=== PATIENT | female | born 1955 | race Caucasian/White ===

== ENCOUNTER 2017-10-11 19:24 | Emergency (ER) | payer OTHER ==
[2017-10-11 19:24] VITALS: BMI 31.4
[2017-10-12 01:47] LABS: BASO # 0.1 K/uL (0.0-0.2); BASO % 0.9 % (0.0-2.0); EOS # 0.3 K/uL (0.0-0.7); EOS % 3.9 % (0.0-4.0); HEMOGLOBIN 13.8 g/dL (11.0-16.0); LYMPH # 2.9 K/uL (1.0-4.3); LYMPH % 44.1 % (20.0-40.0); MEAN CELL VOLUME 90.1 fL (81.0-99.0); MEAN CORPUSCULAR HGB CONC 33.3 g/dL (33.0-37.0); MEAN PLATELET VOLUME 8.9 fL (7.2-11.7); MONO # 0.5 K/uL (0.0-0.8); NEUT # 2.9 K/uL (1.8-7.0); NEUT % 44.1 % (50.0-75.0); NRBC % 0.1 % (0.0-2.0); RBC 4.59 Mil/uL (3.80-5.20); RED CELL DISTRIBUTION WIDTH 13.9 % (11.5-14.5); WHITE BLOOD COUNT 6.6 K/uL (4.8-10.8)
[2017-10-12 01:54] LABS: INR 0.9; PROTHROMBIN TIME 9.7 SECONDS (9.7-12.2)
[2017-10-12 02:00] LABS: SQUAMOUS EPITHIAL 2 /hpf (0-5); URINE BACTERIA RARE (<OCC); URINE BILIRUBIN NEGATIVE (NEGATIVE); URINE BLOOD NEGATIVE (NEGATIVE); URINE CLARITY Clear (Clear); URINE COLOR Yellow (YELLOW); URINE GLUCOSE (UA) NORMAL (Normal); URINE LEUKOCYTE ESTERASE 3+ Leu/uL (Negative); URINE NITRATE NEGATIVE (NEGATIVE); URINE PROTEIN NEGATIVE (NEGATIVE); URINE UROBILINOGEN NORMAL mg/dL (0.2-1.0)
[2017-10-12 02:14] LABS: ALB/GLOB RATIO 1.3 (1.0-2.1); ALBUMIN 4.1 g/dL (3.5-5.0); ALT/SGPT 17 U/L (9-52); AST/SGOT 20 U/L (14-36); BLOOD UREA NITROGEN 16 mg/dL (7-17); CALCIUM 9.6 mg/dl (8.6-10.4); GFR AFRICAN-AMERICAN > 60; GFR NON-AFRICAN AMERICAN > 60; MAGNESIUM 1.7 mg/dL (1.6-2.3)
--- NOTE | 2017-10-12 02:17 | C.PDOC ---
History Of Present Illness 62 year old female presents to ED with complaints of an open wound on the ball of her left foot and has a past medical history of diabetes mellitus and HTN. Patient states that wound is painful and has been worsening over the last few days. Notes that she sees a investigation specialist at the wound clinic but has missed multiple recent appointments. Notes an increase in purulent drainage in pain. (- ) fever. PCP: Manuel Mike Time Seen by Provider: 10/11/17 23:29 Chief Complaint (Nursing): Lower Extremity Problem/Injury History Per: Patient History/Exam Limitations: no limitations Onset/Duration Of Symptoms: Worse Since (last few days) Current Symptoms Are (Timing): Worse Past Medical History Reviewed: Historical Data, Nursing Documentation, Vital Signs Vital Signs: Last Vital Signs Temp 99.3 F 10/11/17 20:23 Pulse 66 10/11/17 20:23 Resp 20 10/11/17 20:23 BP 115/79 10/11/17 20:23 Pulse Ox 98 10/12/17 03:22 - Medical History PMH: Depression, Diabetes, HTN, Hyperlipidemia Denies: Chronic Kidney Disease Surgical History: Cholecystectomy, Hernia Repair, - [facility] Procedures DETACHMENT AT RIGHT 1ST TOE, HIGH, OPEN APPROACH (07/13/16) INSERTION OF INFUSION DEV INTO SUP VENA CAVA, PERC APPROACH (07/13/16) Family History: States: Unknown Family Hx - Social History Hx Tobacco Use: Yes Hx Alcohol Use: No Hx Substance Use: No - Immunization History Hx Tetanus Toxoid Vaccination: No Hx Influenza Vaccination: No Hx Pneumococcal Vaccination: No Review Of Systems Except As Marked, All Systems Reviewed And Found Negative. Constitutional: Negative for: Fever Musculoskeletal: Positive for: Foot Pain (pain to ball of left foot. purulent drainage ) Physical Exam - Physical Exam Appears: Well, No Acute Distress ED Course And Treatment - Laboratory Results Result Diagrams: 10/12/17 01:44 10/12/17 01:44 O2 Sat by Pulse Oximetry: 98 (RA) Pulse Ox Interpretation: Normal Medical Decision Making Medical Decision Makin Initial orders: * VBG * EKG * Labs * XR FOOT LEFT 0003 Foot XR: unremarkable, no fracture no osteomyelitis White count: 6.6 Patient is resting comfortably. 0230 Chemistry unremarkable. Patient will be discharged with antibiotics. Scribe Attestation: Documented by Sheela Stewart acting as a scribe for Long Bridges MD. Scribe Attestation: All medical record entries made by the Scribe were at my direction and personally dictated by me. I have reviewed the chart and agree that the record accurately reflects my personal performance of the history, physical exam, medical decision making, and the department course for this patient. I have also personally directed, reviewed, and agree with the discharge instructions and disposition. Disposition Doctor Will See Patient In The: Office Counseled Patient/Family Regarding: Diagnosis, Need For Followup - Disposition Disposition: HOME/ ROUTINE Disposition Time: 05:10 Condition: STABLE Forms: [employer] (Angolan) - Clinical Impression Clinical Impression: Diabetic foot ulcer, Diabetes 1.5, managed as type 2
[2017-10-12 03:00] LABS: VENOUS BLOOD GAS BASE EXCESS -1.4 mmol/L (0.0-2.0); VENOUS BLOOD GAS PCO2 58 mmHg (40-60); VENOUS BLOOD GAS PO2 23 mm/Hg (30-55); VENOUS BLOOD PH 7.27 (7.32-7.43)
[2017-10-12 06:20] VITALS: BP 116/74; PULSE 74; RESP 20; TEMP 97.6; O2SAT 95
--- NOTE | 2017-10-12 08:48 | RAD ---
PROCEDURE: Left Foot Radiographs. HISTORY: INFECTION COMPARISON: 05/05/2017 FINDINGS: BONES: Generalized osteopenia -similar-appearing No interval fracture or lytic lesion. Mottled soft tissue densities border the 1st metatarsal-phalangeal joint -an interval change here - compatible with an ulcer. No region periosteal reaction or cortical destruction Inferior calcaneal spurring. Posterior calcaneal spurring - blending Achilles tendon enthesophyte . JOINTS: Normal. SOFT TISSUES: Normal. OTHER FINDINGS: None. IMPRESSION: Soft tissue changes consistent with infection. No osteomyelitis suggested
== END 2017-10-12 06:17 | disposition home or self-care (01) ==
LOC: C.ER 19:24
DX: E11.621 Type 2 diabetes mellitus with foot ulcer (principal); L97.529 Non-pressure chronic ulcer of other part of left foot with unspecified severity; I10 Essential (primary) hypertension; E78.5 Hyperlipidemia, unspecified; F17.210 Nicotine dependence, cigarettes, uncomplicated
CPT/HCPCS: 73620; 80053; 81001; 82803; 83735; 84100; 85025; 85610; 85651; 85730; 86140; 87040; 87086; 96374; 96375; 99285; J0696

== ENCOUNTER 2018-06-05 17:06 | Inpatient (IN) | payer OTHER ==
[2018-06-05 17:06] VITALS: BMI 31.4
--- NOTE | 2018-06-05 18:18 | C.PDOC ---
History Of Present Illness 62 year old female presents to the emergency department with complaints of a recurring right foot ulcer for the last 2-3 weeks. Patient reports a history of intermittent ulcer to the bottom of the right foot "for a long time", stating that it resolves and then recurs. Patient states that the size and pain of her ulcer is increasing, with positive discharge. 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 RECUR R FOOT ULCER X 2-3 WEEKS. PS HO INTERMIT ULCER BOTTOM R FOOT "FOR A LONG TIME", WILL RESOLVE AND THEN RECUR. INCR SIZE AND PAIN. +DC. POD DR BENJAMIN EXAM NONTOXIC FOOT R FOOT +1 TOE AMPUTATION, +SWELL MILD NONPITTING ATRAUM SKIN +DFU PLANTAR METATARSAL HEAD W SEROSANG DC. REMAINDER NEG Time Seen by Provider: 06/05/18 18:04 Chief Complaint (Nursing): Abnormal Skin Integrity History Per: Patient History/Exam Limitations: no limitations Onset/Duration Of Symptoms: Other (2-3 weeks) Current Symptoms Are (Timing): Still Present Past Medical History Reviewed: Historical Data, Nursing Documentation, Vital Signs Vital Signs: Last Vital Signs Temp 101.3 F H 06/05/18 20:25 Pulse 108 H 06/05/18 20:25 Resp 18 06/05/18 20:25 BP 110/63 06/05/18 20:25 Pulse Ox 97 06/05/18 20:28 - Medical History PMH: Depression, Diabetes, HTN, Hyperlipidemia Denies: Chronic Kidney Disease Surgical History: Cholecystectomy, Hernia Repair, - [facility] Procedures DETACHMENT AT RIGHT 1ST TOE, HIGH, OPEN APPROACH (07/13/16) INSERTION OF INFUSION DEV INTO SUP VENA CAVA, PERC APPROACH (07/13/16) Family History: States: No Known Family Hx - Social History Hx Tobacco Use: Yes Hx Alcohol Use: No Hx Substance Use: No - Immunization History Hx Tetanus Toxoid Vaccination: Yes Hx Influenza Vaccination: No Hx Pneumococcal Vaccination: Yes Review Of Systems Except As Marked, All Systems Reviewed And Found Negative. Skin: Positive for: Other (right foot ulcer) Neurological: Negative for: Weakness, Numbness Physical Exam - Physical Exam Appears: Non-toxic, No Acute Distress Skin: Warm, Dry, Other (diabetic foot ulcer at the plantar metatarsal head with serosang discharge. ) Head: Atraumatic, Normacephalic Eye(s): bilateral: Normal Inspection Neck: Normal, Supple Chest: Symmetrical, No Tenderness Cardiovascular: Rhythm Regular, No Murmur Respiratory: Normal Breath Sounds, No Rales, No Rhonchi, No Wheezing Extremity: Swelling (to the right foot, mild, non-pitting), Other (right great toe amputation) ED Course And Treatment - Laboratory Results Result Diagrams: 06/05/18 19:24 06/05/18 19:24 ECG Rhythm: Sinus Rhythm ECG Interpretation: Normal Rate From EC O2 Sat by Pulse Oximetry: 97 (RA) Pulse Ox Interpretation: Normal - Radiology CXR: Interpreted by Me CXR Interpretation: Yes: No Acute Disease - Other Rad R FOOT X-Ray: Interpreted by Me (NO FB, ACUTE FX) Progress Note: Plan: VBG. CMP. CBC. CXR One View. Ancef 1000mg. Vancomycin Inj. IV Fluids. Blood Culture. Wound Culture. XR Right Foot 3 Views Progress - Re-Evaluation Re-evaluation Note: 06/05/18 18:15 d/w PODIATRY RES WILL EVAL IN ER 06/05/18 18:20 d/w dr arias AWARE OF ER FINDINGS STATES TO ADMIT TO [employer]ATION [employer]INEER 06/05/18 19:51 D/W DR FELICIANO MED COMPRESSOR STATION ENGINEER WILL ADMIT PT EXAM UNCH PRIOR. NONTOXIC VSS CODE SEPSIS ACTIVATED - Data Reviewed Data Reviewed: Lab, Diagnostic imaging, Old records Disposition Counseled Patient/Family Regarding: Studies Performed, Diagnosis - Disposition Disposition: HOSPITALIZED Disposition Time: 19:53 Condition: SERIOUS - POA Present On Arrival: None - Clinical Impression Clinical Impression: Diabetic foot ulcer - Scribe Statement The provider has reviewed the documentation as recorded by the Scribe (Haider Coleman) Provider Attestation: All medical record entries made by the Scribe were at my direction and personally dictated by me. I have reviewed the chart and agree that the record accurately reflects my personal performance of the history, physical exam, medical decision making, and the department course for this patient. I have also personally directed, reviewed, and agree with the discharge instructions and disposition.
--- NOTE | 2018-06-05 19:23 | CP.PCM.CON ---
History of Present Illness - History of Present Illness History of Present Illness: Podiatry consult note for attending 62 y/o female with PMHx of Depression, Diabetes, HTN, and Hyperlipidemia presents to the Emergency department due to an ulceration to the plantar aspect of her right foot. Patient states she has a long-standing intermittent, history of ulcerations of her feet, which are treated by Dr. Teo Benjamin DPM. Patient states she noted this ulceration 2-3 weeks ago. Patient states it started draining 3 days ago. Patient came to the ED today due to complaints of pain, which travels to the inside of her leg. Patient last saw Dr. Benjamin on May 19 2018, and has not seen him since. Patient had an appointment on June 03, 2018, however she was unable to make the appointment due to transportation issues. Patient states she dresses the ulcer at home everyday with betadine and dry sterile dressing. Patient also states she has a pre- ulcerative lesion to her left foot, which she dresses daily. Patient does not recall her last fasting blood sugar. Patient states she last ate lunch and has only had water since. patient denies any fever, nausea, vomiting, SOB or chest pain. PMHx: Depression, Diabetes, HTN, Hyperlipidemia PSHx: Amputation of the Right Hallux form June 2016, Cholecystectomy, Hernia Repair, ALL: NKDFA Social Hx: admits to tobacco use Review of Systems - Review of Systems All systems: reviewed and no additional remarkable complaints except Review of Systems: as per HPI Past Patient History - Infectious Disease Hx of Infectious Diseases: None - Past Medical History & Family History Past Medical History?: Yes - Past Social History Smoking Status: Light Smoker < 10 Cigarettes Daily - CARDIAC Hx Hypertension: Yes - PULMONARY Hx Respiratory Disorders: Yes (URI) - RENAL Hx Chronic Kidney Disease: No - ENDOCRINE/METABOLIC Hx Diabetes Mellitus Type 1: Yes - INTEGUMENTARY Hx Cellulitis: Yes (right ft) - MUSCULOSKELETAL/RHEUMATOLOGICAL Hx Falls: No - PSYCHIATRIC Hx Depression: Yes Hx Substance Use: No - SURGICAL HISTORY Hx Cholecystectomy: Yes - ANESTHESIA Hx Anesthesia Reactions: No Meds Allergies/Adverse Reactions: Allergies Allergy/AdvReac Type Severity Reaction Status Date / Time No Known Allergies Allergy Verified 06/05/18 17:29 - Medications Medications: Current Medications Vancomycin HCl 1,000 mg/ (Sodium Chloride) 250 mls @ 166.6 mls/hr IVPB STAT STA PRN Reason: Protocol Stop: 06/05/18 19:51 Physical Exam - Constitutional Appears: Well, Non-toxic, No Acute Distress - Head Exam Head Exam: ATRAUMATIC, NORMOCEPHALIC - Extremities Exam Additional comments: Lower Extremity Exam VASC: DP and PT 2/4 bilaterally, CFT less than 3 seconds x 9, TG warm to warm to the right lower extremity in comparison to the LLE, non-pitting edema noted to the Right foot at the site of the ulceration NEURO: diminished protective sensation to bilateral lower extremity DERM: Right Foot- full-thickness 2 cm X 2 cm ulceration present submet 1 of the right foot, fibro-granular base, hyperkeratotic marcela-wound border with hyperpigmentation, +probe to bone, + minimal purulent drainage, + tracking proximally at 6 'o clock, + malodor, + marcela-wound erythema, ulcer noted to the tip of the 2nd digit, no drainage, no probe to bone Left Foot- pre-ulcerative lesion measuring 3 cm X 4 cm present to submet 1 on the left foot with marcela-wound erythema, hyperkeratotic marcela-wound border with hyperpigmentation, no drainage, no clinical signs of infection to the left foot ORTHO: pain on palpation at the ulceration and diffuse pain on palpation to the right leg and foot, previous amputation of the right first ray and tip of right 2nd digit - Neurological Exam Neurological exam: Alert, Oriented x3 - Psychiatric Exam Psychiatric exam: Normal Affect, Normal Mood Results - Vital Signs Recent Vital Signs: Last Vital Signs Temp 99.7 F H 06/05/18 17:24 Pulse 110 H 06/05/18 17:24 Resp 19 06/05/18 17:24 BP 106/72 06/05/18 17:24 Pulse Ox 97 06/05/18 19:01 - Labs Result Diagrams: 06/05/18 19:24 06/05/18 19:24 Assessment & Plan - Assessment and Plan (Free Text) Assessment: 62 y/o female with PMHx of Depression, Diabetes, HTN, and Hyperlipidemia presents to the Emergency department due to an ulceration to the plantar aspect of her right foot Plan: Patient seen and evaluated Plan discussed with attending Dr. Huffman Chart, Labs and Vitals reviewed- Code Sepsis was called on patient VBG Lactate 3.2, Febrile at max temperature 101.3F at 20:25 WBC from 06/05 11.6, ESR at 86 and CRP at 70.30 Foot X-ray 06/05: soft tissue defect plantar submet 1, partial 1st ray amp with osteolytic changes to the stump, periostel changes, no signs of soft tissue emphysema, pending final read Tib-Fib X-ray 06/05: no signs of soft tissue emphysema, pending final read Wound Cultures- Ordered MRI- Ordered to rule out osteomyelitis Patient to continue IV Abx Infectious Disease consult placed- recommendations appreciated Patient was admitted under medicine Wound cleansed with betadine/saline flush and dressed with betadine/DSD Podiatry will follow patient while in house Thank you for the podiatry consult - Date & Time Date: 06/06/18 Time: 05:43
[2018-06-05 19:28] LABS: BASO # 0.1 K/uL (0.0-0.2); BASO % 0.8 % (0.0-2.0); EOS # 0.1 K/uL (0.0-0.7); EOS % 1.2 % (0.0-4.0); HEMOGLOBIN 11.6 g/dL (11.0-16.0); LYMPH % 17.5 % (20.0-40.0); MEAN CELL VOLUME 89.4 fL (81.0-99.0); MEAN CORPUSCULAR HEMOGLOBIN 28.9 pg (27.0-31.0); MEAN CORPUSCULAR HGB CONC 32.3 g/dL (33.0-37.0); MEAN PLATELET VOLUME 8.4 fL (7.2-11.7); MONO # 0.9 K/uL (0.0-0.8); MONO % 7.8 % (0.0-10.0); NEUT # 8.5 K/uL (1.8-7.0); NEUT % 72.7 % (50.0-75.0); RBC 4.01 Mil/uL (3.80-5.20); RED CELL DISTRIBUTION WIDTH 13.4 % (11.5-14.5); WHITE BLOOD COUNT 11.6 K/uL (4.8-10.8)
[2018-06-05] MEDS ORDERED: ceFAZolin 1,000 MG in Dextrose 5% In Water 50 ML IVPB STA (19:28)
[2018-06-05 19:39] LABS: VENOUS BLOOD GAS BASE EXCESS -0.2 mmol/L (0.0-2.0); VENOUS BLOOD GAS PCO2 63 mmHg (40-60); VENOUS BLOOD GAS PO2 < 5 mm/Hg (30-55); VENOUS BLOOD PH 7.26 (7.32-7.43)
[2018-06-05 19:39] LABS: ALB/GLOB RATIO 1.3 (1.0-2.1); ALBUMIN 4.4 g/dL (3.5-5.0); ALT/SGPT 15 U/L (9-52); AST/SGOT 15 U/L (14-36); BLOOD UREA NITROGEN 28 mg/dL (7-17); CALCIUM 9.9 mg/dl (8.6-10.4); GFR NON-AFRICAN AMERICAN 56
[2018-06-05 20:10] LABS: SQUAMOUS EPITHIAL 1 /hpf (0-5); URINE BACTERIA RARE (<OCC); URINE BILIRUBIN NEGATIVE (NEGATIVE); URINE CLARITY Clear (Clear); URINE COLOR Straw (YELLOW); URINE GLUCOSE (UA) NORMAL (Normal); URINE LEUKOCYTE ESTERASE 1+ Leu/uL (Negative); URINE PROTEIN NEGATIVE (NEGATIVE); URINE UROBILINOGEN NORMAL mg/dL (0.2-1.0)
[2018-06-05 20:14] LABS: URINE BLOOD TRACE (NEGATIVE)
[2018-06-05] MEDS ORDERED: Sodium Chloride 0.9% 3,000 ML ONE (20:15)
--- NOTE | 2018-06-05 20:33 | PCM.SEPTIC ---
Sepsis Progress Note - Reassessment Type Date of Evaluation: 06/06/18 Time of Evaluation: 00:50 Reassessment Type: Non-invasive reassessment - Non Invasive Reassessment Were the most recent vital sign reviewed: Yes Vital Sign (Latest): Temp Pulse Resp BP Pulse Ox 101.3 F H 108 H 18 110/63 97 06/05/18 20:25 06/05/18 20:25 06/05/18 20:25 06/05/18 20:25 06/05/18 20:28 Cardiovascular: Yes: Regular Rate, Rhythm. No: Murmur, Bradycardia, Tachycardia Respiratory: Yes: Normal Breath Sounds Capillary Refill: Normal (Less than 2 sec) Pulses: Normal Radial, Normal Posterior Tibialis Skin: Normal Color, Warm, Dry
--- NOTE | 2018-06-05 20:33 | CP.PCM.HP ---
<Cristiana Mc - Last Filed: 06/06/18 00:51> History of Present Illness - History of Present Illness History of Present Illness: Ms. Urbano is a 62 year old female with a past medical history of depression, diabetes, hypertension, and hyperlipidemia who presents with complaints of worsening pain and drainage of a chronic right diabetic foot ulcer located on the plantar aspect of her right foot. Patient does have a history of diabetic foor ulcerations which is managed by Dr. Teo Murry. She noticed this particular ulceration "a couple weeks" ago and states that the wound opens and closes intermittently. She states that today, the wound was draining more and the pain became unbearable. She took a prescribed medication for her pain. She is unsure of the name of the medication. She admits to a 101.7 fever which she took Tylenol for. ROS POSITIVES: Right foot pain, Fever, chills, headache NEGATIVES: lightheadness, Cough, shortness of breath, chest pain, palpitations, abdominal pain, nausea, vomiting, changes in bowel habits, or urinary symptoms. PMHx: depression, diabetes, hypertension, and hyperlipidemia PSHx: Amputation of right 1st and 2nd toe. Hernia repair, Allergies: NKDA SocialHx: 1/2PPD for 44 years. Denies EtOH or illicit drug use Hos: 2-3 years ago for right 1st toe amputation FamHx: Non-Cont. Meds: Per MAR. Patient is unsure why she takes Topamax. She states she thinks it is for sleep. Present on Admission - Present on Admission Any Indicators Present on Admission: Yes History of Uncontrolled Diabetes: Yes Past Patient History - Infectious Disease Hx of Infectious Diseases: None - Past Medical History & Family History Past Medical History?: Yes - Past Social History Smoking Status: Light Smoker < 10 Cigarettes Daily - CARDIAC Hx Hypertension: Yes - PULMONARY Hx Respiratory Disorders: Yes (URI) - RENAL Hx Chronic Kidney Disease: No - ENDOCRINE/METABOLIC Hx Diabetes Mellitus Type 1: Yes - INTEGUMENTARY Hx Cellulitis: Yes (right ft) - MUSCULOSKELETAL/RHEUMATOLOGICAL Hx Falls: No - PSYCHIATRIC Hx Depression: Yes Hx Substance Use: No - SURGICAL HISTORY Hx Cholecystectomy: Yes - ANESTHESIA Hx Anesthesia Reactions: No Meds Allergies/Adverse Reactions: Allergies Allergy/AdvReac Type Severity Reaction Status Date / Time No Known Allergies Allergy Verified 06/05/18 17:29 Physical Exam - Constitutional Appears: Well, Non-toxic, No Acute Distress - Head Exam Head Exam: ATRAUMATIC, NORMAL INSPECTION, NORMOCEPHALIC - Eye Exam Eye Exam: EOMI, Normal appearance - ENT Exam ENT Exam: Mucous Membranes Moist - Respiratory Exam Respiratory Exam: Clear to Auscultation Bilateral, NORMAL BREATHING PATTERN. absent: Accessory Muscle Use, Rales, Rhonchi, Wheezes - Cardiovascular Exam Cardiovascular Exam: RRR, +S1, +S2 - GI/Abdominal Exam GI & Abdominal Exam: Normal Bowel Sounds, Soft. absent: Tenderness - Extremities Exam Extremities exam: Positive for: normal capillary refill, pedal pulses present. Negative for: pedal edema Additional comments: Dressing on b/l feet. Clean, dry, and intact. - Neurological Exam Neurological exam: Alert, Motor Sensory Deficit (Decreased sensation in plantar aspect of feet b/l. ), Oriented x3 - Psychiatric Exam Psychiatric exam: Normal Affect, Normal Mood - Skin Skin Exam: Dry, Intact, Warm Results - Vital Signs Recent Vital Signs: Last Vital Signs Temp 101.3 F H 06/05/18 20:25 Pulse 108 H 06/05/18 20:25 Resp 18 06/05/18 20:25 BP 110/63 06/05/18 20:25 Pulse Ox 97 06/05/18 20:28 - Labs Result Diagrams: 06/05/18 19:24 06/05/18 19:24 Labs: Laboratory Results - last 24 hr 06/05/18 06/05/18 06/05/18 19:24 19:24 19:30 WBC 11.6 H D RBC 4.01 Hgb 11.6 D Hct 35.8 MCV 89.4 MCH 28.9 MCHC 32.3 L RDW 13.4 Plt Count 230 MPV 8.4 Neut % (Auto) 72.7 Lymph % (Auto) 17.5 L [place] % (Auto) 7.8 Eos % (Auto) 1.2 Baso % (Auto) 0.8 Neut # (Auto) 8.5 H Lymph # (Auto) 2.0 [place] # (Auto) 0.9 H Eos # (Auto) 0.1 Baso # (Auto) 0.1 pO2 < 5 L VBG pH 7.26 L VBG pCO2 63 H VBG Total CO2 30.2 H VBG O2 Sat (Calc) 11.0 L VBG Base Excess -0.2 L VBG Potassium 5.0 Glucose 106 H Lactate 3.2 H FiO2 21.0 Crit Value Called To Dr sanchez Crit Value Called By [facility] Crit Value Read Back Y Blood Gas Notified Time 1938 Sodium 141 139.0 Potassium 4.9 Chloride 102 106.0 Carbon Dioxide 23 Anion Gap 20 BUN 28 H Creatinine 1.0 Est GFR ( Amer) > 60 Est GFR (Non-Af Amer) 56 Random Glucose 104 Calcium 9.9 Phosphorus Magnesium Total Bilirubin 0.5 AST 15 ALT 15 Alkaline Phosphatase 79 C-Reactive Protein Total Protein 7.7 Albumin 4.4 Globulin 3.4 Albumin/Globulin Ratio 1.3 Venous Blood Potassium 5.0 Urine Color Urine Clarity Urine pH Ur Specific [place] Urine Protein Urine Glucose (UA) Urine Ketones Urine Blood Urine Nitrate Urine Bilirubin Urine Urobilinogen Ur Leukocyte Esterase Urine WBC (Auto) Urine RBC (Auto) Ur Squamous Epith Cells Urine Bacteria 06/05/18 06/05/18 06/05/18 19:52 20:03 20:03 WBC RBC Hgb Hct MCV MCH MCHC RDW Plt Count MPV Neut % (Auto) Lymph % (Auto) [place] % (Auto) Eos % (Auto) Baso % (Auto) Neut # (Auto) Lymph # (Auto) [place] # (Auto) Eos # (Auto) Baso # (Auto) pO2 VBG pH VBG pCO2 VBG Total CO2 VBG O2 Sat (Calc) VBG Base Excess VBG Potassium Glucose Lactate FiO2 Crit Value Called To Crit Value Called By Crit Value Read Back Blood Gas Notified Time Sodium Potassium Chloride Carbon Dioxide Anion Gap BUN Creatinine Est GFR ( Amer) Est GFR (Non-Af Amer) Random Glucose Calcium Phosphorus 2.8 Magnesium 2.0 Total Bilirubin AST ALT Alkaline Phosphatase C-Reactive Protein 70.30 H Total Protein Albumin Globulin Albumin/Globulin Ratio Venous Blood Potassium Urine Color Straw Urine Clarity Clear Urine pH 6.0 Ur Specific [place] 1.010 Urine Protein Negative Urine Glucose (UA) Normal Urine Ketones Negative Urine Blood Trace Urine Nitrate Negative Urine Bilirubin Negative Urine Urobilinogen Normal Ur Leukocyte Esterase 1+ H Urine WBC (Auto) 12 H Urine RBC (Auto) 1 Ur Squamous Epith Cells 1 Urine Bacteria Rare Assessment & Plan - Assessment and Plan (Free Text) Assessment: 62 year old female with a past medical history of depression, diabetes, hypertension, and hyperlipidemia admitted for evaluation and treatment of non- healing diabetic foot ulceration. Plan: Diabetic Foot Ulcers ED: Tylenol, Cefazolin, Vancomycin, Toradol, Fluid Bolus. Podiatry Consulted (Dr. Huffman) - Recs appreciated Foot X-ray (Adm): PENDING Official Read Tibia/Fibula X-ray(Adm): PENDING Official Read Vancomycin 1gm Daily Zosyn 3.375gm Q6H Morphine 1 Q6H PRN Vitamin C 500mg Daily Tylenol PRN Sepsis Fever and tachycardia with foot ulceration as source Lactate - 3.2 -->1. CXR (Adm): Negative for acute disease processes. PENDING Official Read Blood/Urine/Wound Cultures Vancomycin 1gm Daily Zosyn 3.375gm Q6H Tylenol PRN Right Lower Ext. Swelling Ultrasound of RLE to R/O DVT. Hx of HLD Home Med: Simvastatin 40mg PO HS Hx of Diabetes w/ neuropathy Hold Home meds ISS ACHS Gabapentin 300mg BID Hx of Psych Disorders: Home Meds: Paxil 20mg PO Daily for Depression Topiramate 25mg PO Daily. Will need to confirm why she is taking this medication. Proph Heparin Diabetic Diet SCD Contraindicated due to lower extremity swelling Patient discussed with Attending Cristiana Mc, PGY-2 <Cornell Avendaño - Last Filed: 06/06/18 06:32> Results - Vital Signs Recent Vital Signs: Last Vital Signs Temp 98 F 06/06/18 00:45 Pulse 70 06/06/18 03:28 Resp 20 06/06/18 00:45 BP 101/63 06/06/18 00:45 Pulse Ox 98 06/06/18 00:45 - Labs Result Diagrams: 06/05/18 19:24 06/05/18 19:24 Labs: Laboratory Results - last 24 hr 06/05/18 06/05/18 06/05/18 19:24 19:24 19:30 WBC 11.6 H D RBC 4.01 Hgb 11.6 D Hct 35.8 MCV 89.4 MCH 28.9 MCHC 32.3 L RDW 13.4 Plt Count 230 MPV 8.4 Neut % (Auto) 72.7 Lymph % (Auto) 17.5 L [place] % (Auto) 7.8 Eos % (Auto) 1.2 Baso % (Auto) 0.8 Neut # (Auto) 8.5 H Lymph # (Auto) 2.0 [place] # (Auto) 0.9 H Eos # (Auto) 0.1 Baso # (Auto) 0.1 ESR pO2 < 5 L VBG pH 7.26 L VBG pCO2 63 H VBG HCO3 VBG Total CO2 30.2 H VBG O2 Sat (Calc) 11.0 L VBG Base Excess -0.2 L VBG Potassium 5.0 Glucose 106 H Lactate 3.2 H FiO2 21.0 Crit Value Called To Dr sanchez Crit Value Called By [facility] Crit Value Read Back Y Blood Gas Notified Time 1938 Sodium 141 139.0 Potassium 4.9 Chloride 102 106.0 Carbon Dioxide 23 Anion Gap 20 BUN 28 H Creatinine 1.0 Est GFR ( Amer) > 60 Est GFR (Non-Af Amer) 56 Random Glucose 104 Calcium 9.9 Phosphorus Magnesium Total Bilirubin 0.5 AST 15 ALT 15 Alkaline Phosphatase 79 C-Reactive Protein Total Protein 7.7 Albumin 4.4 Globulin 3.4 Albumin/Globulin Ratio 1.3 Venous Blood Potassium 5.0 Urine Color Urine Clarity Urine pH Ur Specific [place] Urine Protein Urine Glucose (UA) Urine Ketones Urine Blood Urine Nitrate Urine Bilirubin Urine Urobilinogen Ur Leukocyte Esterase Urine WBC (Auto) Urine RBC (Auto) Ur Squamous Epith Cells Urine Bacteria 06/05/18 06/05/18 06/05/18 19:52 19:52 20:03 WBC RBC Hgb Hct MCV MCH MCHC RDW Plt Count MPV Neut % (Auto) Lymph % (Auto) [place] % (Auto) Eos % (Auto) Baso % (Auto) Neut # (Auto) Lymph # (Auto) [place] # (Auto) Eos # (Auto) Baso # (Auto) ESR 86 H pO2 VBG pH VBG pCO2 VBG HCO3 VBG Total CO2 VBG O2 Sat (Calc) VBG Base Excess VBG Potassium Glucose Lactate FiO2 Crit Value Called To Crit Value Called By Crit Value Read Back Blood Gas Notified Time Sodium Potassium Chloride Carbon Dioxide Anion Gap BUN Creatinine Est GFR ( Amer) Est GFR (Non-Af Amer) Random Glucose Calcium Phosphorus 2.8 Magnesium 2.0 Total Bilirubin AST ALT Alkaline Phosphatase C-Reactive Protein 70.30 H Total Protein Albumin Globulin Albumin/Globulin Ratio Venous Blood Potassium Urine Color Urine Clarity Urine pH Ur Specific [place] Urine Protein Urine Glucose (UA) Urine Ketones Urine Blood Urine Nitrate Urine Bilirubin Urine Urobilinogen Ur Leukocyte Esterase Urine WBC (Auto) Urine RBC (Auto) Ur Squamous Epith Cells Urine Bacteria 06/05/18 06/05/18 20:03 23:44 WBC RBC Hgb Hct MCV MCH MCHC RDW Plt Count MPV Neut % (Auto) Lymph % (Auto) [place] % (Auto) Eos % (Auto) Baso % (Auto) Neut # (Auto) Lymph # (Auto) [place] # (Auto) Eos # (Auto) Baso # (Auto) ESR pO2 50 VBG pH 7.26 L VBG pCO2 43 VBG HCO3 18.6 VBG Total CO2 20.6 L VBG O2 Sat (Calc) 86.5 H VBG Base Excess -7.5 L VBG Potassium 3.9 Glucose 132 H Lactate 1.0 FiO2 Crit Value Called To Crit Value Called By Crit Value Read Back Blood Gas Notified Time Sodium 139.0 Potassium Chloride 111.0 H Carbon Dioxide Anion Gap BUN Creatinine Est GFR ( Amer) Est GFR (Non-Af Amer) Random Glucose Calcium Phosphorus Magnesium Total Bilirubin AST ALT Alkaline Phosphatase C-Reactive Protein Total Protein Albumin Globulin Albumin/Globulin Ratio Venous Blood Potassium 3.9 Urine Color Straw Urine Clarity Clear Urine pH 6.0 Ur Specific [place] 1.010 Urine Protein Negative Urine Glucose (UA) Normal Urine Ketones Negative Urine Blood Trace Urine Nitrate Negative Urine Bilirubin Negative Urine Urobilinogen Normal Ur Leukocyte Esterase 1+ H Urine WBC (Auto) 12 H Urine RBC (Auto) 1 Ur Squamous Epith Cells 1 Urine Bacteria Rare Assessment & Plan - Date & Time Date: 06/06/18 (I have seen and examined the patient. I agree with the findings and plan of care as documented by Dr. Mc. Patient with diabetic foot ulcer. Seen by podiatry. SIRS positive. Code sepsis called. Magy for now. Wound and blood cultures. Monitor for acute changes.) Time: 06:31 Attending/Attestation - Attestation I have personally seen and examined this patient.: Yes I have fully participated in the care of the patient.: Yes I have reviewed all pertinent clinical information: Yes
[2018-06-05] MEDS ORDERED: Sodium Chloride 0.9% 1,000 ML IV STA (22:22)
[2018-06-05] MEDS ORDERED: Sodium Chloride 0.9% 1,000 ML ONE (22:28)
[2018-06-05 23:47] LABS: VENOUS BLOOD GAS BASE EXCESS -7.5 mmol/L (0.0-2.0); VENOUS BLOOD GAS PCO2 43 mmHg (40-60); VENOUS BLOOD GAS PO2 50 mm/Hg (30-55); VENOUS BLOOD PH 7.26 (7.32-7.43)
[2018-06-06] MEDS: (Novolin R) Insulin Human Regular 100 units/ml vial SC SCH ×4 (07:49→21:31)
[2018-06-06 08:20] LABS: PROTHROMBIN TIME 11.2 SECONDS (9.7-12.2)
[2018-06-06 08:24] LABS: BASO # 0.1 K/uL (0.0-0.2); BASO % 0.9 % (0.0-2.0); EOS # 0.3 K/uL (0.0-0.7); EOS % 4.2 % (0.0-4.0); HEMOGLOBIN 10.9 g/dL (11.0-16.0); MEAN CELL VOLUME 90.3 fL (81.0-99.0); MEAN CORPUSCULAR HEMOGLOBIN 29.4 pg (27.0-31.0); MEAN CORPUSCULAR HGB CONC 32.5 g/dL (33.0-37.0); MONO # 0.7 K/uL (0.0-0.8); MONO % 10.1 % (0.0-10.0); NEUT # 3.6 K/uL (1.8-7.0); NEUT % 54.8 % (50.0-75.0); RBC 3.72 Mil/uL (3.80-5.20); RED CELL DISTRIBUTION WIDTH 13.4 % (11.5-14.5); WHITE BLOOD COUNT 6.5 K/uL (4.8-10.8)
[2018-06-06 08:35] LABS: ALB/GLOB RATIO 1.2 (1.0-2.1); ALBUMIN 3.4 g/dL (3.5-5.0); ALT/SGPT 20 U/L (9-52); AST/SGOT 9 U/L (14-36); BLOOD UREA NITROGEN 18 mg/dL (7-17); CALCIUM 8.9 mg/dl (8.6-10.4); GFR NON-AFRICAN AMERICAN > 60
--- NOTE | 2018-06-06 09:34 | RAD ---
Chest x-ray single frontal view History: Shortness of breath. Comparison: 07/13/2016 Findings: Mild venous congestion. Heart size within normal limits. Degenerative changes in the spine. Impression: Mild venous congestion.
[2018-06-06] MEDS ORDERED: Folic Acid/Ascorbic Acid/Ferrous Sulfate 1 Tab PO SCH (10:00)
--- NOTE | 2018-06-06 10:33 | RAD ---
Date of service: 06/05/2018 PROCEDURE: Right Foot Radiographs. HISTORY: DFU COMPARISON: 06/19/2014 FINDINGS: BONES: Status post amputation 1st digit at the distal aspect of the 1st metatarsal. The patient is status post amputation 2nd digit at the PIP. No other amputation. No acute fracture. JOINTS: Normal. SOFT TISSUES: Normal. OTHER FINDINGS: None. IMPRESSION: Amputation 1st digit at 1st metatarsal head. Old amputation at 2nd PIP.
--- NOTE | 2018-06-06 10:33 | RAD ---
Date of service: 06/05/2018 PROCEDURE: Radiographs of the right tibia and fibula. HISTORY: r/o gas from RLE COMPARISON: None available TECHNIQUE: Frontal and lateral views obtained. FINDINGS: BONES: No fracture or destructive lesion. JOINT SPACES: Unremarkable. OTHER FINDINGS: None. IMPRESSION: Unremarkable radiographs of the right tibia and fibula.
[2018-06-06] MEDS: Piperacillin/Tazobact 3.375 GM in Sodium Chloride 100 ML IVPB SCH ×3 (11:00→21:57)
--- NOTE | 2018-06-06 11:32 | CP.PCM.CON ---
History of Present Illness - History of Present Illness History of Present Illness: dictated Past Patient History - Infectious Disease Hx of Infectious Diseases: None - Past Medical History & Family History Past Medical History?: Yes - Past Social History Smoking Status: Light Smoker < 10 Cigarettes Daily - CARDIAC Hx Hypertension: Yes - PULMONARY Hx Respiratory Disorders: Yes (URI) - RENAL Hx Chronic Kidney Disease: No - ENDOCRINE/METABOLIC Hx Diabetes Mellitus Type 1: Yes - INTEGUMENTARY Hx Cellulitis: Yes (right ft) - MUSCULOSKELETAL/RHEUMATOLOGICAL Hx Falls: No - PSYCHIATRIC Hx Depression: Yes Hx Substance Use: No - SURGICAL HISTORY Hx Cholecystectomy: Yes - ANESTHESIA Hx Anesthesia Reactions: No Meds Allergies/Adverse Reactions: Allergies Allergy/AdvReac Type Severity Reaction Status Date / Time No Known Allergies Allergy Verified 06/05/18 17:29 - Medications Medications: Current Medications Acetaminophen (Tylenol 325mg Tab) 650 mg PO Q6 PRN PRN Reason: Fever >100.4 F Ascorbic Ac/Ferrous Sulf/Folic Acid (Iberet-Folic 500) 1 ter PO DAILY [facility] Ascorbic Acid (Vitamin C 500 Mg Tab) 500 mg PO DAILY [facility] Last Admin: 06/06/18 09:19 Dose: 500 mg Gabapentin (Neurontin) 300 mg PO BID [facility] Last Admin: 06/06/18 09:19 Dose: 300 mg Heparin Sodium (Porcine) (Heparin) 5,000 units SC Q8 [facility] Last Admin: 06/06/18 06:44 Dose: 5,000 units Piperacillin Sod/Tazobactam (Sod 3.375 gm/ Sodium Chloride) 100 mls @ 200 mls/hr IVPB Q6H CORINNA PRN Reason: Protocol Vancomycin/Sodium Chloride (Vancomycin 1 Gm/Ns 200 Ml) 1 gm in 200 mls @ 133.333 mls/hr IVPB Q12H CORINNA PRN Reason: Protocol Stop: 06/11/18 11:31 Insulin Human Regular (Novolin R) 0 unit SC ACHS CORINNA PRN Reason: Protocol Last Admin: 06/06/18 07:49 Dose: Not Given Lactobacillus Acidophilus (Bacid Acidophilus) 1 cap PO BID [facility] Lisinopril (Zestril) 2.5 mg PO DAILY [facility] Morphine Sulfate (Morphine) 1 mg IVP Q6H PRN PRN Reason: Pain, severe (8-10) Paroxetine HCl (Paxil) 20 mg PO DAILY [facility] Last Admin: 06/06/18 09:19 Dose: 20 mg Rosuvastatin Calcium (Crestor) 10 mg PO HS CORINNA Topiramate (Topamax) 25 mg PO DAILY [facility] Last Admin: 06/06/18 09:19 Dose: 25 mg Results - Vital Signs Recent Vital Signs: Last Vital Signs Temp 97.9 F 06/06/18 08:27 Pulse 76 06/06/18 08:27 Resp 20 06/06/18 08:27 BP 113/76 06/06/18 08:27 Pulse Ox 100 06/06/18 08:27 - Labs Result Diagrams: 06/06/18 08:01 06/06/18 08:01 Labs: Laboratory Results - last 24 hr 06/05/18 06/05/18 06/05/18 19:24 19:24 19:30 WBC 11.6 H D RBC 4.01 Hgb 11.6 D Hct 35.8 MCV 89.4 MCH 28.9 MCHC 32.3 L RDW 13.4 Plt Count 230 MPV 8.4 Neut % (Auto) 72.7 Lymph % (Auto) 17.5 L [place] % (Auto) 7.8 Eos % (Auto) 1.2 Baso % (Auto) 0.8 Neut # (Auto) 8.5 H Lymph # (Auto) 2.0 [place] # (Auto) 0.9 H Eos # (Auto) 0.1 Baso # (Auto) 0.1 ESR PT INR pO2 < 5 L VBG pH 7.26 L VBG pCO2 63 H VBG HCO3 VBG Total CO2 30.2 H VBG O2 Sat (Calc) 11.0 L VBG Base Excess -0.2 L VBG Potassium 5.0 Glucose 106 H Lactate 3.2 H FiO2 21.0 Crit Value Called To Dr sanchez Crit Value Called By [facility] Crit Value Read Back Y Blood Gas Notified Time 1938 Sodium 141 139.0 Potassium 4.9 Chloride 102 106.0 Carbon Dioxide 23 Anion Gap 20 BUN 28 H Creatinine 1.0 Est GFR ( Amer) > 60 Est GFR (Non-Af Amer) 56 POC Glucose (mg/dL) Random Glucose 104 Calcium 9.9 Phosphorus Magnesium Total Bilirubin 0.5 AST 15 ALT 15 Alkaline Phosphatase 79 C-Reactive Protein Total Protein 7.7 Albumin 4.4 Globulin 3.4 Albumin/Globulin Ratio 1.3 Venous Blood Potassium 5.0 Urine Color Urine Clarity Urine pH Ur Specific [place] Urine Protein Urine Glucose (UA) Urine Ketones Urine Blood Urine Nitrate Urine Bilirubin Urine Urobilinogen Ur Leukocyte Esterase Urine WBC (Auto) Urine RBC (Auto) Ur Squamous Epith Cells Urine Bacteria 06/05/18 06/05/18 06/05/18 19:52 19:52 20:03 WBC RBC Hgb Hct MCV MCH MCHC RDW Plt Count MPV Neut % (Auto) Lymph % (Auto) [place] % (Auto) Eos % (Auto) Baso % (Auto) Neut # (Auto) Lymph # (Auto) [place] # (Auto) Eos # (Auto) Baso # (Auto) ESR 86 H PT INR pO2 VBG pH VBG pCO2 VBG HCO3 VBG Total CO2 VBG O2 Sat (Calc) VBG Base Excess VBG Potassium Glucose Lactate FiO2 Crit Value Called To Crit Value Called By Crit Value Read Back Blood Gas Notified Time Sodium Potassium Chloride Carbon Dioxide Anion Gap BUN Creatinine Est GFR ( Amer) Est GFR (Non-Af Amer) POC Glucose (mg/dL) Random Glucose Calcium Phosphorus 2.8 Magnesium 2.0 Total Bilirubin AST ALT Alkaline Phosphatase C-Reactive Protein 70.30 H Total Protein Albumin Globulin Albumin/Globulin Ratio Venous Blood Potassium Urine Color Urine Clarity Urine pH Ur Specific [place] Urine Protein Urine Glucose (UA) Urine Ketones Urine Blood Urine Nitrate Urine Bilirubin Urine Urobilinogen Ur Leukocyte Esterase Urine WBC (Auto) Urine RBC (Auto) Ur Squamous Epith Cells Urine Bacteria 06/05/18 06/05/18 06/06/18 20:03 23:44 06:45 WBC RBC Hgb Hct MCV MCH MCHC RDW Plt Count MPV Neut % (Auto) Lymph % (Auto) [place] % (Auto) Eos % (Auto) Baso % (Auto) Neut # (Auto) Lymph # (Auto) [place] # (Auto) Eos # (Auto) Baso # (Auto) ESR PT INR pO2 50 VBG pH 7.26 L VBG pCO2 43 VBG HCO3 18.6 VBG Total CO2 20.6 L VBG O2 Sat (Calc) 86.5 H VBG Base Excess -7.5 L VBG Potassium 3.9 Glucose 132 H Lactate 1.0 FiO2 Crit Value Called To Crit Value Called By Crit Value Read Back Blood Gas Notified Time Sodium 139.0 Potassium Chloride 111.0 H Carbon Dioxide Anion Gap BUN Creatinine Est GFR ( Amer) Est GFR (Non-Af Amer) POC Glucose (mg/dL) 111 H Random Glucose Calcium Phosphorus Magnesium Total Bilirubin AST ALT Alkaline Phosphatase C-Reactive Protein Total Protein Albumin Globulin Albumin/Globulin Ratio Venous Blood Potassium 3.9 Urine Color Straw Urine Clarity Clear Urine pH 6.0 Ur Specific [place] 1.010 Urine Protein Negative Urine Glucose (UA) Normal Urine Ketones Negative Urine Blood Trace Urine Nitrate Negative Urine Bilirubin Negative Urine Urobilinogen Normal Ur Leukocyte Esterase 1+ H Urine WBC (Auto) 12 H Urine RBC (Auto) 1 Ur Squamous Epith Cells 1 Urine Bacteria Rare 06/06/18 06/06/18 06/06/18 08:01 08:01 08:01 WBC 6.5 RBC 3.72 L Hgb 10.9 L Hct 33.6 L MCV 90.3 MCH 29.4 MCHC 32.5 L RDW 13.4 Plt Count 186 MPV 9.0 Neut % (Auto) 54.8 Lymph % (Auto) 30.0 [place] % (Auto) 10.1 H Eos % (Auto) 4.2 H Baso % (Auto) 0.9 Neut # (Auto) 3.6 Lymph # (Auto) 2.0 [place] # (Auto) 0.7 Eos # (Auto) 0.3 Baso # (Auto) 0.1 ESR PT 11.2 INR 1.0 pO2 VBG pH VBG pCO2 VBG HCO3 VBG Total CO2 VBG O2 Sat (Calc) VBG Base Excess VBG Potassium Glucose Lactate FiO2 Crit Value Called To Crit Value Called By Crit Value Read Back Blood Gas Notified Time Sodium 145 Potassium 4.3 Chloride 114 H Carbon Dioxide 21 L Anion Gap 15 BUN 18 H Creatinine 0.8 Est GFR ( Amer) > 60 Est GFR (Non-Af Amer) > 60 POC Glucose (mg/dL) Random Glucose 109 H Calcium 8.9 Phosphorus Magnesium Total Bilirubin 0.3 AST 9 L D ALT 20 Alkaline Phosphatase 74 C-Reactive Protein Total Protein 6.2 L Albumin 3.4 L D Globulin 2.9 Albumin/Globulin Ratio 1.2 Venous Blood Potassium Urine Color Urine Clarity Urine pH Ur Specific [place] Urine Protein Urine Glucose (UA) Urine Ketones Urine Blood Urine Nitrate Urine Bilirubin Urine Urobilinogen Ur Leukocyte Esterase Urine WBC (Auto) Urine RBC (Auto) Ur Squamous Epith Cells Urine Bacteria
--- NOTE | 2018-06-06 11:35 | VASCLAB ---
Date of service: 06/06/2018 PROCEDURE: Right Lower Extremity Venous Duplex Exam. HISTORY: Right Lower Extremity Edema and tenderness. PRIORS: LAST EXAM 06/2016, NORMAL. TECHNIQUE: Right common femoral, femoral, popliteal and posterior tibial, peroneal and great saphenous veins were evaluated. Flow was assessed with color Doppler, compressibility, assessment of phasic flow and augmentation response. Report prepared by STARR Rouse FINDINGS: RIGHT: 1. Common Femoral Vein: 1.1. Compressibility - Fully compressible: Thrombus - None: Flow - Phasic: Augmentation -Normal: Reflux - None. 2. Femoral Vein: 2.1. Compressibility - Fully compressible: Thrombus - None: Flow - Phasic: Augmentation -Normal: Reflux - None. 3. Popliteal Vein: 3.1. Compressibility - Fully compressible: Thrombus - None: Flow - Phasic: Augmentation -Normal: Reflux - None. 4. Posterior Tibial Vein: 4.1. Compressibility - Fully compressible: Thrombus - None: Flow - Phasic: Augmentation -Normal: Reflux - None. 5. Peroneal Vein: 5.1. Compressibility - Fully compressible: Thrombus - None: Flow - Phasic: Augmentation -Normal: Reflux - None. 6. Great Saphenous Vein: 6.1. Compressibility - Fully compressible: Thrombus -None: Flow - Phasic: Augmentation - Normal: Reflux - None. OTHER FINDINGS: IMPRESSION: No evidence of deep or superficial vein thrombosis of the right lower extremity with excellent venous flow. Normal valve function noted of the right side. Normal venous flow noted in the left common femoral vein.
--- NOTE | 2018-06-06 13:08 | CP.PCM.PN ---
<Allison Gonzalez Y - Last Filed: 06/06/18 16:32> Subjective - Date & Time of Evaluation Date of Evaluation: 06/06/18 Time of Evaluation: 10:50 - Subjective Subjective: PGY-1 Medicine Progress Note for Dr. Gutierrez Patient was seen and examined today at bedside in no acute distress. Nurse reports no overnight events. Patient still complains of R foot pain without radiation above the ankle. Denies chest pain, shortness of breath, abdominal pain, numbness, tingling, dizziness, headache. Tolerating diet well, denies any issues voiding. Objective - Vital Signs/Intake and Output Vital Signs (last 24 hours): Temp Pulse Resp BP Pulse Ox 97.9 F 76 20 113/76 100 06/06/18 08:27 06/06/18 08:27 06/06/18 08:27 06/06/18 08:27 06/06/18 08:27 - Medications Medications: Current Medications Acetaminophen (Tylenol 325mg Tab) 650 mg PO Q6 PRN PRN Reason: Fever >100.4 F Ascorbic Ac/Ferrous Sulf/Folic Acid (Iberet-Folic 500) 1 ter PO DAILY [facility] Ascorbic Acid (Vitamin C 500 Mg Tab) 500 mg PO DAILY [facility] Last Admin: 06/06/18 09:19 Dose: 500 mg Gabapentin (Neurontin) 300 mg PO BID [facility] Last Admin: 06/06/18 09:19 Dose: 300 mg Heparin Sodium (Porcine) (Heparin) 5,000 units SC Q8 [facility] Last Admin: 06/06/18 06:44 Dose: 5,000 units Piperacillin Sod/Tazobactam (Sod 3.375 gm/ Sodium Chloride) 100 mls @ 200 mls/ hr IVPB Q6H [facility] PRN Reason: Protocol Last Admin: 06/06/18 11:00 Dose: 200 mls/hr Vancomycin/Sodium Chloride (Vancomycin 1 Gm/Ns 200 Ml) 1 gm in 200 mls @ 133.333 mls/hr IVPB Q12H [facility] PRN Reason: Protocol Stop: 06/11/18 13:01 Insulin Human Regular (Novolin R) 0 unit SC ACHS [facility] PRN Reason: Protocol Last Admin: 06/06/18 12:23 Dose: Not Given Lactobacillus Acidophilus (Bacid Acidophilus) 1 cap PO BID [facility] Lisinopril (Zestril) 2.5 mg PO DAILY [facility] Morphine Sulfate (Morphine) 1 mg IVP Q6H PRN PRN Reason: Pain, severe (8-10) Paroxetine HCl (Paxil) 20 mg PO DAILY [facility] Last Admin: 06/06/18 09:19 Dose: 20 mg Rosuvastatin Calcium (Crestor) 10 mg PO HS [facility] Topiramate (Topamax) 25 mg PO DAILY [facility] Last Admin: 06/06/18 09:19 Dose: 25 mg - Labs Labs: 06/06/18 08:01 06/06/18 08:01 PT 11.2 SECONDS (9.7-12.2) 06/06/18 08:01 INR 1.0 06/06/18 08:01 - Constitutional Appears: Non-toxic, No Acute Distress - Head Exam Head Exam: ATRAUMATIC, NORMOCEPHALIC - Eye Exam Eye Exam: EOMI, Normal appearance - ENT Exam ENT Exam: Mucous Membranes Moist, Normal Exam - Respiratory Exam Respiratory Exam: Clear to Ausculation Bilateral, NORMAL BREATHING PATTERN. absent: Rales, Rhonchi, Wheezes - Cardiovascular Exam Cardiovascular Exam: REGULAR RHYTHM, +S1, +S2. absent: RRR, Rubs - GI/Abdominal Exam GI & Abdominal Exam: Soft, Normal Bowel Sounds. absent: Firm, Guarding, Tenderness - Extremities Exam Extremities Exam: Normal Capillary Refill, Pedal Edema Additional comments: dressings on bilateral feet, c/d/i betadine apparent, being redressed by surgery 2.5x1.5 cm ulcer at base of 1st metatarsals, bilaterally feet swollen and warm to touch peripheral pulses palpable bilaterally (radial, PT) IV in bilateral hands - Neurological Exam Neurological Exam: Alert, Awake, Motor Sensory Deficit, Oriented x3 Additional comments: decreased sensation in plantar aspect bilateral - Psychiatric Exam Psychiatric exam: Normal Affect, Normal Mood - Skin Skin Exam: Dry, Intact, Normal Color Assessment and Plan - Assessment and Plan (Free Text) Assessment: 62 year old female with a past medical history of depression, diabetes, hypertension, and hyperlipidemia admitted for evaluation and treatment of non- healing diabetic foot ulceration. 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 - Podiatry consulted: Dr. Nathanael pereira appreciated - wound cleansed with betadine/saline flush; redressed with betadine/DSD - will continue to follow - ID consulted: Dr. Amadeo pereira appreciated - cont IV abx - will continue to follow - Vancomycin 1gm IVPB q12 (started 06/05) -f/u vanc trough ordered for 06/07 @ 0030 - Zosyn 3.375gm IVPB 16 (started 06/06) - Morphine 1mg IVP q6 prn - Vitamin C 500mg po daily 2) Sepsis - Fever: Tmax - 06/05 @ 2024: 101.3F, WBC 11.6, HR 108 - foot ulceration as likely source - VBG lactate: 3.2 -> 1.0 - CXR (06/05): mild venous congestion; negative for acute disease process - f/u blood Cx: collected - f/u urine Cx: collected - abx as above: Vancomycin and Zosyn - Tylenol 650mg po q6 prn for fever > 100.4F 3) Right Lower Ext. Swelling - US RLE venous Doppler (06/06): negative - f/u US RLE arterial Doppler: ordered - continue to monitor swelling 4) Hx of Hyperlipidemia - home Simvastatin 40mg -> Crestor 10mg po HS 5) Hx of Diabetes w/ neuropathy - Hold Home meds - ISS ACHS - recalculate sliding scale for long acting insulin tomorrow after full 24 hours of Accuchecks and ISS - Gabapentin 300mg po bid - Lisinopril 2.5mg po daily 6) Hx of Psych Disorders: - home Paxil 20mg po daily - home Topiramate 25mg po daily 7) PPx - DVT: Heparin 5000u sc q8, SCDs CI d/t LE swelling - GI: not indicated at this time, Bacid - Diabetic Diet d/w Dr. Matt Gonzalez PGY-1 <Serafin Gutierrez - Last Filed: 06/08/18 19:32> Objective - Vital Signs/Intake and Output Vital Signs (last 24 hours): Temp Pulse Resp BP Pulse Ox 98.4 F 71 20 110/74 95 06/08/18 15:35 06/08/18 15:35 06/08/18 15:35 06/08/18 15:35 06/08/18 15:35 Intake and Output: 06/08/18 06/09/18 18:59 06:59 Intake Total 800 Balance 800 - Medications Medications: Current Medications Acetaminophen (Tylenol 325mg Tab) 650 mg PO Q6 PRN PRN Reason: Fever >100.4 F Ascorbic Ac/Ferrous Sulf/Folic Acid (Iberet-Folic 500) 1 ter PO DAILY [facility] Last Admin: 06/08/18 10:16 Dose: 1 ter Ascorbic Acid (Vitamin C 500 Mg Tab) 500 mg PO DAILY [facility] Last Admin: 06/08/18 10:16 Dose: 500 mg Gabapentin (Neurontin) 300 mg PO BID [facility] Last Admin: 06/08/18 17:40 Dose: 300 mg Heparin Sodium (Porcine) (Heparin) 5,000 units SC Q8 [facility] Last Admin: 06/08/18 13:40 Dose: 5,000 units Vancomycin/Sodium Chloride (Vancomycin 1 Gm/Ns 200 Ml) 1 gm in 200 mls @ 133.333 mls/hr IVPB Q12H [facility] PRN Reason: Protocol Stop: 06/11/18 13:01 Last Admin: 06/08/18 12:48 Dose: 133.333 mls/hr Meropenem 500 mg/ Sodium (Chloride) 100 mls @ 100 mls/hr IVPB Q8H [facility] PRN Reason: Protocol Last Admin: 06/08/18 14:38 Dose: 100 mls/hr Insulin Human Regular (Novolin R) 0 unit SC ACHS [facility] PRN Reason: Protocol Last Admin: 06/08/18 17:40 Dose: 2 units Lactobacillus Acidophilus (Bacid Acidophilus) 1 cap PO BID [facility] Last Admin: 06/08/18 17:40 Dose: 1 cap Lisinopril (Zestril) 2.5 mg PO DAILY [facility] Last Admin: 06/08/18 10:16 Dose: 2.5 mg Morphine Sulfate (Morphine) 1 mg IVP Q6H PRN PRN Reason: Pain, severe (8-10) Last Admin: 06/08/18 13:49 Dose: 1 mg Nicotine (Nicoderm Cq) 1 patch TD DAILY [facility] Last Admin: 06/08/18 10:16 Dose: 1 patch Paroxetine HCl (Paxil) 20 mg PO DAILY [facility] Last Admin: 06/08/18 10:16 Dose: 20 mg Rosuvastatin Calcium (Crestor) 10 mg PO HS [facility] Last Admin: 06/07/18 21:23 Dose: 10 mg Topiramate (Topamax) 25 mg PO DAILY [facility] Last Admin: 06/08/18 10:16 Dose: 25 mg - Labs Labs: 06/08/18 06:57 06/08/18 06:57 PT 11.3 SECONDS (9.7-12.2) 06/08/18 06:57 INR 1.0 06/08/18 06:57 APTT 32 SECONDS (21-34) D 06/08/18 06:57 Attending/Attestation - Attestation I have personally seen and examined this patient.: Yes I have fully participated in the care of the patient.: Yes I have reviewed all pertinent clinical information, including history, physical exam and plan: Yes Notes (Text): 06/08/18 19:32 This is a late entry. Care of this patient was gone over with the resident Serafin Gutierrez D.O.
[2018-06-06] MEDS: Vancomycin 1 gm/NS 200 ml 1 GM/200 ML BAG IVPB SCH (13:15)
[2018-06-06] MEDS: Folic Acid/Ascorbic Acid/Ferrous Sulfate 1 Tab PO SCH (14:19)
--- NOTE | 2018-06-06 15:47 | CP.PCM.PN ---
Subjective - Date & Time of Evaluation Date of Evaluation: 06/06/18 Time of Evaluation: 11:45 - Subjective Subjective: Podiatry Progress note: Dr. Hufmfan 62 year old female patient was evaluated this morning with family members at bedside. Patient is AAOx3 and appears in NAD. States that she is feeling a lot better today. Reports that her pain has also resolved a lot today. Patient and the family also states that the swelling has gone down a lot today. Denies of any acute overnight events. Denies of recent F/N/V/C/SOB/CP/headache. No other pedal complains at this time. Objective - Vital Signs/Intake and Output Vital Signs (last 24 hours): Temp Pulse Resp BP Pulse Ox 97.9 F 86 20 113/76 100 06/06/18 08:27 06/06/18 13:00 06/06/18 08:27 06/06/18 08:27 06/06/18 08:27 Intake and Output: 06/06/18 06/06/18 06:59 18:59 Intake Total 480 Balance 480 - Medications Medications: Current Medications Acetaminophen (Tylenol 325mg Tab) 650 mg PO Q6 PRN PRN Reason: Fever >100.4 F Ascorbic Ac/Ferrous Sulf/Folic Acid (Iberet-Folic 500) 1 ter PO DAILY [facility] Last Admin: 06/06/18 14:19 Dose: 1 ter Ascorbic Acid (Vitamin C 500 Mg Tab) 500 mg PO DAILY [facility] Last Admin: 06/06/18 09:19 Dose: 500 mg Gabapentin (Neurontin) 300 mg PO BID [facility] Last Admin: 06/06/18 09:19 Dose: 300 mg Heparin Sodium (Porcine) (Heparin) 5,000 units SC Q8 [facility] Last Admin: 06/06/18 14:19 Dose: 5,000 units Piperacillin Sod/Tazobactam (Sod 3.375 gm/ Sodium Chloride) 100 mls @ 200 mls/ hr IVPB Q6H [facility] PRN Reason: Protocol Last Admin: 06/06/18 11:00 Dose: 200 mls/hr Vancomycin/Sodium Chloride (Vancomycin 1 Gm/Ns 200 Ml) 1 gm in 200 mls @ 133.333 mls/hr IVPB Q12H [facility] PRN Reason: Protocol Stop: 06/11/18 13:01 Last Admin: 06/06/18 13:15 Dose: 133.333 mls/hr Insulin Human Regular (Novolin R) 0 unit SC ACHS [facility] PRN Reason: Protocol Last Admin: 06/06/18 12:23 Dose: Not Given Lactobacillus Acidophilus (Bacid Acidophilus) 1 cap PO BID [facility] Lisinopril (Zestril) 2.5 mg PO DAILY [facility] Morphine Sulfate (Morphine) 1 mg IVP Q6H [facility] PRN Reason: Pain, severe (8-10) Last Admin: 06/06/18 14:18 Dose: 1 mg Paroxetine HCl (Paxil) 20 mg PO DAILY [facility] Last Admin: 06/06/18 09:19 Dose: 20 mg Rosuvastatin Calcium (Crestor) 10 mg PO HS [facility] Topiramate (Topamax) 25 mg PO DAILY [facility] Last Admin: 06/06/18 09:19 Dose: 25 mg - Labs Labs: 06/06/18 08:01 06/06/18 08:01 PT 11.2 SECONDS (9.7-12.2) 06/06/18 08:01 INR 1.0 06/06/18 08:01 - Constitutional Appears: Well, Non-toxic, No Acute Distress - Extremities Exam Additional comments: Lower Extremity Exam VASC: DP and PT 2/4 bilaterally, CFT less than 3 seconds x 9, TG warm to warm to the right lower extremity in comparison to the LLE, non-pitting edema noted to the Right foot at the site of the ulceration which appears to be less than yesterday NEURO: diminished protective sensation to bilateral lower extremity DERM: Right Foot- full-thickness 2 cm X 2 cm ulceration present submet 1 of the right foot, fibro-granular base, hyperkeratotic marcela-wound border with hyperpigmentation, +probe to bone, no purulent drainage up on deep palpation, + tracking proximally at 6 'o clock, - malodor, + marcela-wound erythema appears to be resolving, ulcer noted to the tip of the 2nd digit, no drainage, no probe to bone Left Foot- pre-ulcerative lesion measuring 3 cm X 4 cm present to submet 1 on the left foot with marcela-wound erythema, hyperkeratotic marcela-wound border with hyperpigmentation, no drainage, no clinical signs of infection to the left foot ORTHO: pain on palpation at the ulceration and diffuse pain on palpation to the right leg and foot, previous amputation of the right first ray and tip of right 2nd digit - Neurological Exam Neurological Exam: Alert, Awake, Oriented x3 - Psychiatric Exam Psychiatric exam: Normal Affect, Normal Mood Assessment and Plan - Assessment and Plan (Free Text) Assessment: 62 y/o female was evaluated for an ulceration to the plantar aspect of her right foot Plan: Patient seen and evaluated Plan discussed with attending Dr. Huffman Labs, vitals and charts reviewed - WBC trending down with no elevation today; afebrile Foot X-ray 06/05: soft tissue defect plantar submet 1, partial 1st ray amp with osteolytic changes to the stump, periostel changes, no signs of soft tissue emphysema Tib-Fib X-ray 06/05: no signs of soft tissue emphysema Wound Cultures- pending MRI- Ordered to rule out osteomyelitis Patient to continue IV Abx Infectious Disease consult placed- recommendations appreciated Wound cleansed with betadine/saline flush and dressed with betadine/DSD Podiatry will follow patient while in house
[2018-06-06] MEDS: Lactobacillus Acidophilus 500 MU Cap PO SCH (17:34)
[2018-06-06] MEDS ORDERED: Vancomycin 1 GM in Sodium Chloride 0.9% 200 ML IVPB SCH (20:00)
[2018-06-07] MEDS: Vancomycin 1 gm/NS 200 ml 1 GM/200 ML BAG IVPB SCH ×2 (01:55→13:30)
[2018-06-07] MEDS: Piperacillin/Tazobact 3.375 GM in Sodium Chloride 100 ML IVPB SCH ×2 (04:19→11:00)
--- NOTE | 2018-06-07 08:05 | CON ---
DATE: 06/06/2018 INFECTIOUS DISEASE CONSULT REQUESTED BY: Cornell Avendaño DO HISTORY OF PRESENT ILLNESS: This patient is a 62-year-old female. She has history of diabetes and depression, and is insulin-dependent diabetic with hypertension and hyperlipidemia. She has been having these ulcers for several years. They come off and on. Now, she has this right foot draining ulcer with pain and also ulceration on the left foot. She is following with Dr. Flood, but due to transportation problems, she was not able to see him in May, so she last saw the policy adviser on 05/19/2018. Now, comes in with fever. There is also history of fall at home with the family mentioned few days around the day weekend, and she found herself very weak, and now comes here with fever, chills, and headache, and right foot pain. She has had surgery on the right foot with the first and second toe amputation. She also has had surgery for abdominal hernia repair and . PAST MEDICAL HISTORY: Significant for depression, diabetes, hypertension, hyperlipidemia. I asked her if she was ever treated for bone infection, and the family said they do not know much, may be Dr. Flood had treated in the past for that. ALLERGIES: SHE IS NOT ALLERGIC TO ANY MEDICINE. SOCIAL HISTORY: Significant for half pack per day for 44 years, and there is no EtOH or drug abuse otherwise. She lives with her family. SURGICAL HISTORY: Three years ago, had right first toe amputation and then the second toe. FAMILY HISTORY: Noncontributory. ALLERGIES: SHE IS NOT ALLERGIC TO ANY MEDICINES. MEDICATIONS: She is on Tylenol, Iberet folic, and is on ascorbic acid, vitamin C, on gabapentin, heparin subcu, morphine for the pain, paroxetine, Zosyn was every 6 hours, Crestor, topiramate, and on vancomycin 1 g, I changed it to every 12 hours as she still has good function. The patient's history is significant for smoking. Cardiac history is significant for hypertension. Respiratory: She has upper respiratory infection frequently. Renal: She has no kidney function problems. Diabetes type 1, has insulin use. She does have cellulitis, history of fall recently. Psych history is significant for depression, and for substance use, negative. Surgical history is significant for cholecystectomy, and first and second toe amputation. She did not mention that cholecystectomy, and she also had hernia repair and . She has had chronic diabetic foot ulcers, and venous Dopplers were done, which were negative. We are looking for an MRI. She has a normal affect at this time. Skin, warm to touch. No nausea, no vomiting, no diarrhea. She does have right foot pain. PHYSICAL EXAMINATION: VITAL SIGNS: I find, temperature is 98, pulse is 83, blood pressure 100/64, respirations are 20. HEENT: Head is atraumatic, normocephalic. Pupils are reacting to light. Eye movements are unremarkable. Tongue is moist. NECK: Supple. JVP is flat. LUNGS: Clear to auscultation. No crackles or rales present. CHEST: Chest wall is symmetrical. HEART: S1, S2 are regular. No murmurs appreciated. ABDOMEN: Soft, nontender. No guarding, no rigidity present. EXTREMITIES: Have dressings on both feet at this time and reviewed with the policy adviser. She has great toe amputated and partial amputation of the second toe, has ulcer there and also has the ulcer on the foot with drainage at this time. Left foot also has ulcer. LABORATORY DATA: We are going to get MRIs done. Venous Dopplers are negative. We will get arterial Dopplers done. White count is 11.6, hemoglobin is 11.6, hematocrit is 35.8, platelet count is 230. BUN is 28, creatinine is 1. Lactate level was 3.2. Sodium 141, potassium 4.9, chlorides are 102, CO2 is 23. Labs show urine culture is negative. Wound culture is pending. PLAN: Plan is to get MRI done to rule out osteomyelitis and follow with the policy adviser and continue antibiotics at this time as ordered. We will need vancomycin peak and trough soon, and ESR, CRP, and the policy adviser that the full thickness 2 x 2 mass at the submetatarsal of the right foot has probed to the bone, so we need to is automatically osteomyelitis. We will follow the MRI report. We will follow. Alessia Childs MD [facility] # [id number]
[2018-06-07 08:16] LABS: BASO % 0.3 % (0.0-2.0); EOS # 0.3 K/uL (0.0-0.7); EOS % 5.6 % (0.0-4.0); HEMOGLOBIN 10.9 g/dL (11.0-16.0); LYMPH # 1.7 K/uL (1.0-4.3); MEAN CELL VOLUME 90.7 fL (81.0-99.0); MEAN CORPUSCULAR HEMOGLOBIN 29.8 pg (27.0-31.0); MEAN CORPUSCULAR HGB CONC 32.9 g/dL (33.0-37.0); MEAN PLATELET VOLUME 8.7 fL (7.2-11.7); MONO # 0.5 K/uL (0.0-0.8); MONO % 9.2 % (0.0-10.0); NEUT # 2.7 K/uL (1.8-7.0); NEUT % 51.9 % (50.0-75.0); NRBC % 0.3 % (0.0-2.0); RBC 3.67 Mil/uL (3.80-5.20); RED CELL DISTRIBUTION WIDTH 13.7 % (11.5-14.5); WHITE BLOOD COUNT 5.2 K/uL (4.8-10.8)
[2018-06-07 08:24] LABS: INR 0.9; PROTHROMBIN TIME 10.3 SECONDS (9.7-12.2)
[2018-06-07] MEDS: (Novolin R) Insulin Human Regular 100 units/ml vial SC SCH ×4 (08:30→21:28)
[2018-06-07 08:38] LABS: ALB/GLOB RATIO 1.3 (1.0-2.1); ALBUMIN 3.7 g/dL (3.5-5.0); ALT/SGPT 16 U/L (9-52); AST/SGOT 17 U/L (14-36); BLOOD UREA NITROGEN 20 mg/dL (7-17); CALCIUM 9.4 mg/dl (8.6-10.4); GFR NON-AFRICAN AMERICAN > 60
[2018-06-07] MEDS ORDERED: Sod Polystyrene Sulf 15 gm/60 ml Susp PO ONE ×2 (09:51→11:00)
[2018-06-07] MEDS: Folic Acid/Ascorbic Acid/Ferrous Sulfate 1 Tab PO SCH (10:48)
[2018-06-07] MEDS: Lactobacillus Acidophilus 500 MU Cap PO SCH ×2 (10:48→18:32)
--- NOTE | 2018-06-07 12:18 | CP.PCM.PN ---
Subjective - Date & Time of Evaluation Date of Evaluation: 06/07/18 Time of Evaluation: 12:14 - Subjective Subjective: Podiatry Progress note: Dr. Huffman 62 year old female patient was evaluated this morning for right plantar submet head one wound. Patient is AAOx3 and appears in NAD. Appears to be resting comfortably. States that she is feeling a lot better today. Reports that her pain has also resolved a lot today. Denies of any acute overnight events. Denies of recent F/N/V/C/SOB/CP/headache. No other pedal complains at this time. Objective - Vital Signs/Intake and Output Vital Signs (last 24 hours): Temp Pulse Resp BP Pulse Ox 98.1 F 77 20 96/63 L 96 06/07/18 07:00 06/07/18 10:47 06/07/18 07:00 06/07/18 10:47 06/07/18 07:00 Intake and Output: 06/07/18 06/07/18 06:59 18:59 Intake Total 700 Balance 700 - Medications Medications: Current Medications Acetaminophen (Tylenol 325mg Tab) 650 mg PO Q6 PRN PRN Reason: Fever >100.4 F Ascorbic Ac/Ferrous Sulf/Folic Acid (Iberet-Folic 500) 1 ter PO DAILY [facility] Last Admin: 06/07/18 10:48 Dose: 1 ter Ascorbic Acid (Vitamin C 500 Mg Tab) 500 mg PO DAILY [facility] Last Admin: 06/07/18 10:48 Dose: 500 mg Gabapentin (Neurontin) 300 mg PO BID [facility] Last Admin: 06/07/18 10:48 Dose: 300 mg Heparin Sodium (Porcine) (Heparin) 5,000 units SC Q8 [facility] Last Admin: 06/07/18 05:45 Dose: 5,000 units Piperacillin Sod/Tazobactam (Sod 3.375 gm/ Sodium Chloride) 100 mls @ 200 mls/ hr IVPB Q6H [facility] PRN Reason: Protocol Last Admin: 06/07/18 11:00 Dose: 200 mls/hr Vancomycin/Sodium Chloride (Vancomycin 1 Gm/Ns 200 Ml) 1 gm in 200 mls @ 133.333 mls/hr IVPB Q12H [facility] PRN Reason: Protocol Stop: 06/11/18 13:01 Last Admin: 06/07/18 01:55 Dose: 133.333 mls/hr Insulin Human Regular (Novolin R) 0 unit SC ACHS [facility] PRN Reason: Protocol Last Admin: 06/07/18 08:30 Dose: Not Given Lactobacillus Acidophilus (Bacid Acidophilus) 1 cap PO BID [facility] Last Admin: 06/07/18 10:48 Dose: 1 cap Lisinopril (Zestril) 2.5 mg PO DAILY [facility] Last Admin: 06/07/18 10:49 Dose: Not Given Morphine Sulfate (Morphine) 1 mg IVP Q6H PRN PRN Reason: Pain, severe (8-10) Last Admin: 06/06/18 14:18 Dose: 1 mg Paroxetine HCl (Paxil) 20 mg PO DAILY [facility] Last Admin: 06/07/18 10:48 Dose: 20 mg Rosuvastatin Calcium (Crestor) 10 mg PO HS [facility] Last Admin: 06/06/18 21:26 Dose: 10 mg Topiramate (Topamax) 25 mg PO DAILY [facility] Last Admin: 06/07/18 10:48 Dose: 25 mg - Labs Labs: 06/07/18 08:09 06/07/18 08:09 PT 10.3 SECONDS (9.7-12.2) 06/07/18 08:09 INR 0.9 06/07/18 08:09 APTT 24 SECONDS (21-34) 06/07/18 08:09 - Constitutional Appears: Well, Non-toxic, No Acute Distress - Extremities Exam Additional comments: Lower Extremity Exam VASC: DP and PT 2/4 bilaterally, CFT less than 3 seconds x 9, TG warm to warm to the right lower extremity in comparison to the LLE, non-pitting edema noted to the Right foot at the site of the ulceration which appears to be less than yesterday NEURO: diminished protective sensation to bilateral lower extremity DERM: Right Foot- full-thickness 2 cm X 2 cm ulceration present submet 1 of the right foot, fibro-granular base, hyperkeratotic marcela-wound border with hyperpigmentation, +probe to bone, no purulent drainage up on deep palpation, + tracking proximally at 6 'o clock, - malodor, + marcela-wound erythema appears to be resolving, ulcer noted to the tip of the 2nd digit, no drainage, no probe to bone Left Foot- pre-ulcerative lesion measuring 3 cm X 4 cm present to submet 1 on the left foot with marcela-wound erythema, hyperkeratotic marcela-wound border with hyperpigmentation, no drainage, no clinical signs of infection to the left foot ORTHO: pain on palpation at the ulceration and diffuse pain on palpation to the right leg and foot, 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 Huffman Labs, vitals and charts reviewed - No leukocytosis; afebrile Foot X-ray 06/05: soft tissue defect plantar submet 1, partial 1st ray amp with osteolytic changes to the stump, periostel changes, no signs of soft tissue emphysema Tib-Fib X-ray 06/05: no signs of soft tissue emphysema Wound Cultures- Pserudomonas Aeruginosa, G negative Lamine # 2 (prelim) MRI- Increase in signal intensity along the shaft of the 1st metatarsal on T2 image consistent with OM, official read pending Infectious Disease consult- recommendations appreciated Patient to continue IV Abx as per ID Wound cleansed with betadine/saline flush and dressed with betadine/DSD Podiatry does not plan surgical intervention at this time as patient is clinically stable; USP IV abx vs. Plan for any surgical intervention as an outpatient Podiatry will follow patient while in house
--- NOTE | 2018-06-07 12:25 | MRI ---
MRI right forefoot HISTORY: Evaluate for osteomyelitis. Prior surgery. Comparison: None available. Technique: Multi-echo multiplanar sequences were performed through the right forefoot without the use of intravenous contrast. Findings: Status post resection of the 1st digit to the 1st metatarsal head. Status post resection of the 2nd digit to the level of proximal phalanx. Prominent loculated fluid intensity signal collection with a suggestion of a punctate foci of questionable air seen within the medial soft tissues adjacent to the 1st metatarsal head measuring 1.9 x 1.4 x 1.9 centimeters concerning for an abscess. Additional fluid collection seen at the lateral aspect of the 1st metatarsal head measuring up to 1.8 centimeters also concerning for an abscess collection. Extensive marrow signal abnormality seen within the 1st metatarsal bone with decreased T1 signal and increased STIR signal consistent with an acute osteomyelitis. Prominent signal abnormality noted within the 2nd proximal phalanx also demonstrating decreased T1 signal increased STIR signal also concerning for acute osteomyelitis. Minimal reactive bone marrow edema seen within the medial cuneiform distally at the articular surface suggestive for osteochondral change. Focal signal abnormality seen at the distal pole the lateral cuneiform near its articulation with the 3rd metatarsal base concerning for osteochondral change although acute infectious and or inflammatory changes cannot entirely be excluded. Clinical correlation. Mild fraying with increased signal seen at the level of the Lisfranc ligament which may represent a low grade sprain and or mild partial tearing. Clinical correlation. Prominent degenerative changes noted in the midfoot with bony spurring and osteochondral change. Impression: Status post resection of the 1st digit to the 1st metatarsal head. Status post resection of the 2nd digit to the level of proximal phalanx. Prominent loculated fluid intensity signal collection with a suggestion of a punctate foci of questionable air seen within the medial soft tissues adjacent to the 1st metatarsal head measuring 1.9 x 1.4 x 1.9 centimeters concerning for an abscess. Additional fluid collection seen at the lateral aspect of the 1st metatarsal head measuring up to 1.8 centimeters also concerning for an abscess collection. Extensive marrow signal abnormality seen within the 1st metatarsal bone with decreased T1 signal and increased STIR signal consistent with an acute osteomyelitis. Prominent signal abnormality noted within the 2nd proximal phalanx also demonstrating decreased T1 signal increased STIR signal also concerning for acute osteomyelitis. Minimal reactive bone marrow edema seen within the medial cuneiform distally at the articular surface suggestive for osteochondral change. Focal signal abnormality seen at the distal pole the lateral cuneiform near its articulation with the 3rd metatarsal base concerning for osteochondral change although acute infectious and or inflammatory changes cannot entirely be excluded. Clinical correlation. Mild fraying with increased signal seen at the level of the Lisfranc ligament which may represent a low grade sprain and or mild partial tearing. Clinical correlation. Prominent degenerative changes noted in the midfoot with bony spurring and osteochondral change. These findings were preliminarily reported at 5:45 p.m. on 06/06/[address] Allison Arredondo from [facility].
--- NOTE | 2018-06-07 13:46 | CP.PCM.PN ---
<Allison Gonzalez Y - Last Filed: 06/07/18 18:19> Subjective - Date & Time of Evaluation Date of Evaluation: 06/07/18 Time of Evaluation: 07:15 - Subjective Subjective: PGY- 1 Medicine Progress Note for Dr. Gutierrez Patient was seen and examined today at bedside in no acute distress. Nurse reports no overnight events. Patient reports improved R food pain with good control with current medication regiment. Patient reports feeling mildly constipated. Patient denies fever, chest pain, shortness of breath, abdominal pain, numbness, or headache. Patient is tolerating diet well but has not had a bowel movement in 2-3 days. Objective - Vital Signs/Intake and Output Vital Signs (last 24 hours): Temp Pulse Resp BP Pulse Ox 98.1 F 77 20 96/63 L 96 06/07/18 07:00 06/07/18 10:47 06/07/18 07:00 06/07/18 10:47 06/07/18 07:00 Intake and Output: 06/07/18 06/07/18 06:59 18:59 Intake Total 700 Balance 700 - Medications Medications: Current Medications Acetaminophen (Tylenol 325mg Tab) 650 mg PO Q6 PRN PRN Reason: Fever >100.4 F Ascorbic Ac/Ferrous Sulf/Folic Acid (Iberet-Folic 500) 1 ter PO DAILY [facility] Last Admin: 06/07/18 10:48 Dose: 1 ter Ascorbic Acid (Vitamin C 500 Mg Tab) 500 mg PO DAILY [facility] Last Admin: 06/07/18 10:48 Dose: 500 mg Docusate Sodium (Colace) 100 mg PO TID [facility] Last Admin: 06/07/18 13:25 Dose: 100 mg Gabapentin (Neurontin) 300 mg PO BID [facility] Last Admin: 06/07/18 10:48 Dose: 300 mg Heparin Sodium (Porcine) (Heparin) 5,000 units SC Q8 [facility] Last Admin: 06/07/18 13:25 Dose: 5,000 units Vancomycin/Sodium Chloride (Vancomycin 1 Gm/Ns 200 Ml) 1 gm in 200 mls @ 133.333 mls/hr IVPB Q12H [facility] PRN Reason: Protocol Stop: 06/11/18 13:01 Last Admin: 06/07/18 13:30 Dose: 133.333 mls/hr Meropenem 500 mg/ Sodium (Chloride) 100 mls @ 100 mls/hr IVPB Q8H [facility] PRN Reason: Protocol Insulin Human Regular (Novolin R) 0 unit SC ACHS [facility] PRN Reason: Protocol Last Admin: 06/07/18 12:30 Dose: 3 units Lactobacillus Acidophilus (Bacid Acidophilus) 1 cap PO BID [facility] Last Admin: 06/07/18 10:48 Dose: 1 cap Lisinopril (Zestril) 2.5 mg PO DAILY [facility] Last Admin: 06/07/18 10:49 Dose: Not Given Morphine Sulfate (Morphine) 1 mg IVP Q6H PRN PRN Reason: Pain, severe (8-10) Last Admin: 06/06/18 14:18 Dose: 1 mg Paroxetine HCl (Paxil) 20 mg PO DAILY [facility] Last Admin: 06/07/18 10:48 Dose: 20 mg Rosuvastatin Calcium (Crestor) 10 mg PO HS [facility] Last Admin: 06/06/18 21:26 Dose: 10 mg Topiramate (Topamax) 25 mg PO DAILY [facility] Last Admin: 06/07/18 10:48 Dose: 25 mg - Labs Labs: 06/07/18 08:09 06/07/18 08:09 PT 10.3 SECONDS (9.7-12.2) 06/07/18 08:09 INR 0.9 06/07/18 08:09 APTT 24 SECONDS (21-34) 06/07/18 08:09 - Constitutional Appears: Well, Non-toxic, No Acute Distress - Head Exam Head Exam: ATRAUMATIC, NORMOCEPHALIC - Eye Exam Eye Exam: EOMI, Normal appearance - ENT Exam ENT Exam: Mucous Membranes Moist, Normal Exam - Respiratory Exam Respiratory Exam: Clear to Ausculation Bilateral, NORMAL BREATHING PATTERN. absent: Rales, Rhonchi, Wheezes - Cardiovascular Exam Cardiovascular Exam: REGULAR RHYTHM, RRR, +S1, +S2. absent: Gallop, JVD, Rubs - GI/Abdominal Exam GI & Abdominal Exam: Soft, Normal Bowel Sounds. absent: Distended, Guarding, Rigid, Tenderness - Extremities Exam Extremities Exam: Normal Capillary Refill, Pedal Edema. absent: Calf Tenderness Additional comments: dressings on bilateral feet, c/d/i undressed and redressed right foot during exam 2.5x1.5 cm ulcer at base of right 1st metatarsal left foot newly redressed by surgery feet swollen and warm to touch peripheral pulses palpable bilaterally (radial, PT) IV in bilateral hands - Neurological Exam Neurological Exam: Alert, Awake, Oriented x3 - Psychiatric Exam Psychiatric exam: Normal Affect, Normal Mood - Skin Skin Exam: Dry, Intact, Normal Color Assessment and Plan - Assessment and Plan (Free Text) Assessment: 62 year old female with a past medical history of depression, diabetes, hypertension, and hyperlipidemia admitted for evaluation and treatment of bilateral non-healing diabetic foot ulceration leading to osteomyelitis. 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 1.8cm abscess laterally adjacent to 1st metatarsal head. Acute osteomyelitis within the 1st metatarsal, and at 2nd proximal phalanx. Mild fraying consistent with low grade sprained ankle or partial tear. Prominent degen changes in the midfoot with bony spurring and osteochondral changes - MRI L LE (06/07): prelim read: no osteomyelitis, cellulitis of the medial distal left first toe, without drainable abscess - f/u wound Cx sensitivity: Pseudomonas Aerugenousa, gram negative rods #2 - ED: Tylenol, Cefazolin, Vancomycin x2, Toradol, Fluid Bolus. - Podiatry consulted: Dr. Nathanael pereira appreciated - wound cleansed with betadine/saline flush; redressed with betadine/DSD - will continue to follow - ID consulted: Dr. Amadeo pereira appreciated - cont IV abx - will continue to follow - Vancomycin 1gm IVPB q12 (started 06/05) - vanc trough (06/07) 9.8 - next vanc trough 06/09 @ 0030 - Zosyn 3.375gm IVPB q6 (06/06-06/07) stopped d/t poor sensitivity - Merrem 500mg IVPB q8 (started 06/07) - Morphine 1mg IVP q6 prn - Vitamin C 500mg po daily - blood Cx (06/05) negative at 24 hours. Pending negative at 72 hours before PICC /midline placement for prison abx for osteomyelitis. Sepsis - Fever: Tmax - 06/05 @ 2024: 101.3F, WBC 11.6, HR 108 - foot ulceration as likely source - VBG lactate: 3.2 -> 1.0 - CXR (06/05): mild venous congestion; negative for acute disease process - urine Cx (06/05): negative - f/u blood Cx (06/05): negative @ 24 hours - abx as above: Vancomycin and Merrem - Tylenol 650mg po q6 prn for fever > 100.4F Right Lower Ext. Swelling - US RLE venous Doppler (06/06): negative - f/u US RLE arterial Doppler: completed, pending read - continue to monitor swelling Hx of Hyperlipidemia - home Simvastatin 40mg -> Crestor 10mg po HS Hx of Diabetes w/ neuropathy - Hold Home meds - ISS ACHS - recalculate sliding scale for long acting insulin tomorrow after full 24 hours of Accuchecks and ISS - currently well controlled on ISS without basal insulin - Gabapentin 300mg po bid - Lisinopril 2.5mg po daily Hx of Psych Disorders: - home Paxil 20mg po daily - home Topiramate 25mg po daily Constipation - Colace 100 mg po TID Tobacco use - Nicotine 7mg/24hr 1 patch TD daily - counseled on cessation PPx - DVT: Heparin 5000u sc q8, SCDs CI d/t LE swelling - GI: not indicated at this time, Bacid - Diabetic Diet - must talk to dietary to stop giving hamburgers d/w Dr. Matt Gonzalez PGY-1 <Serafin Gutierrez - Last Filed: 06/08/18 19:34> Objective - Vital Signs/Intake and Output Vital Signs (last 24 hours): Temp Pulse Resp BP Pulse Ox 98.4 F 71 20 110/74 95 06/08/18 15:35 06/08/18 15:35 06/08/18 15:35 06/08/18 15:35 06/08/18 15:35 Intake and Output: 06/08/18 06/09/18 18:59 06:59 Intake Total 800 Balance 800 - Medications Medications: Current Medications Acetaminophen (Tylenol 325mg Tab) 650 mg PO Q6 PRN PRN Reason: Fever >100.4 F Ascorbic Ac/Ferrous Sulf/Folic Acid (Iberet-Folic 500) 1 ter PO DAILY [facility] Last Admin: 06/08/18 10:16 Dose: 1 ter Ascorbic Acid (Vitamin C 500 Mg Tab) 500 mg PO DAILY [facility] Last Admin: 06/08/18 10:16 Dose: 500 mg Gabapentin (Neurontin) 300 mg PO BID [facility] Last Admin: 06/08/18 17:40 Dose: 300 mg Heparin Sodium (Porcine) (Heparin) 5,000 units SC Q8 [facility] Last Admin: 06/08/18 13:40 Dose: 5,000 units Vancomycin/Sodium Chloride (Vancomycin 1 Gm/Ns 200 Ml) 1 gm in 200 mls @ 133.333 mls/hr IVPB Q12H [facility] PRN Reason: Protocol Stop: 06/11/18 13:01 Last Admin: 06/08/18 12:48 Dose: 133.333 mls/hr Meropenem 500 mg/ Sodium (Chloride) 100 mls @ 100 mls/hr IVPB Q8H [facility] PRN Reason: Protocol Last Admin: 06/08/18 14:38 Dose: 100 mls/hr Insulin Human Regular (Novolin R) 0 unit SC ACHS [facility] PRN Reason: Protocol Last Admin: 06/08/18 17:40 Dose: 2 units Lactobacillus Acidophilus (Bacid Acidophilus) 1 cap PO BID [facility] Last Admin: 06/08/18 17:40 Dose: 1 cap Lisinopril (Zestril) 2.5 mg PO DAILY [facility] Last Admin: 06/08/18 10:16 Dose: 2.5 mg Morphine Sulfate (Morphine) 1 mg IVP Q6H PRN PRN Reason: Pain, severe (8-10) Last Admin: 06/08/18 13:49 Dose: 1 mg Nicotine (Nicoderm Cq) 1 patch TD DAILY [facility] Last Admin: 06/08/18 10:16 Dose: 1 patch Paroxetine HCl (Paxil) 20 mg PO DAILY [facility] Last Admin: 06/08/18 10:16 Dose: 20 mg Rosuvastatin Calcium (Crestor) 10 mg PO HS [facility] Last Admin: 06/07/18 21:23 Dose: 10 mg Topiramate (Topamax) 25 mg PO DAILY [facility] Last Admin: 06/08/18 10:16 Dose: 25 mg - Labs Labs: 06/08/18 06:57 06/08/18 06:57 PT 11.3 SECONDS (9.7-12.2) 06/08/18 06:57 INR 1.0 06/08/18 06:57 APTT 32 SECONDS (21-34) D 06/08/18 06:57 Attending/Attestation - Attestation I have personally seen and examined this patient.: Yes I have fully participated in the care of the patient.: Yes I have reviewed all pertinent clinical information, including history, physical exam and plan: Yes Notes (Text): 06/08/18 19:32 This is late entry Care of this patient was gone over in detail with the resident Serafin Gutierrez D.O.
[2018-06-07] MEDS: Meropenem 500 MG in Sodium Chloride 0.9% 100 ML IVPB SCH ×2 (14:45→21:30)
[2018-06-08] MEDS: Vancomycin 1 gm/NS 200 ml 1 GM/200 ML BAG IVPB SCH ×2 (01:25→12:48)
--- NOTE | 2018-06-08 03:22 | PN ---
DATE: 06/07/2018 SUBJECTIVE: The patient was very drowsy when I went to see her this afternoon. She was sleeping and even by waking her up she was not getting up, so I decided to follow up on the labs and just see her report. PHYSICAL EXAMINATION: VITAL SIGNS: She has been afebrile, T-max is 97.9, pulse 68, blood pressure 112/76, respirations are 20. HEENT: Head is atraumatic. NECK: Supple. LUNGS: Clear. HEART: S1, S2 are regular. ABDOMEN: Soft, nontender. EXTREMITIES: Have bilateral dressings present on both feet. LABORATORY DATA: White count is 5.2, hemoglobin 7.9, hematocrit 33.3. There is anion gap, BUN is 20, creatinine 0.8. UA shows leukocytes 1+, wbc 12. I am waiting for the MRI report and MRI report is pending at this time, on 06/06/2018 the MRI was done for the right foot which showed status post resection of first digit of the first metatarsal status post resection of the second digit to the level of the proximal phalanx, so there is dominant loculated fluid intense collection suggestion of punctate foci of questionable seen within the medial soft tissue of first metatarsal concerning for an abscesses, additional fluid collection seen at the level of the first metatarsal measuring up to 1.8 cm and concerning for abscess and extensive marrow abnormality seen within the first bone, decreased T1 signal and increased STIR signal consistent with an acute osteomyelitis, prominent signal noted within the second proximal phalanx also demonstrates decreased T1 signal, increased STIR signal also concerning for acute osteomyelitis, so first metatarsal, second proximal phalanx and minimal reactive bone marrow, so there is lot of changes of osteomyelitis on the right foot. We are waiting to see the report of the left foot. ASSESSMENT AND PLAN: She is on vancomycin and Merrem at this time, we will continue those and we will follow. She had a micro culture which had Pseudomonas aeruginosa and gram-negative rods and so we have placed her on Merrem at this time and with vancomycin. We will follow with the bonbon dipper and she may need arterial Doppler's which are pending and we will see what the podiatry plans for her. Sadhna Amadeo, MD
[2018-06-08] MEDS: Meropenem 500 MG in Sodium Chloride 0.9% 100 ML IVPB SCH ×3 (05:36→21:31)
[2018-06-08 07:21] LABS: BASO # 0.1 K/uL (0.0-0.2); BASO % 1.2 % (0.0-2.0); EOS # 0.3 K/uL (0.0-0.7); EOS % 4.4 % (0.0-4.0); HEMOGLOBIN 10.6 g/dL (11.0-16.0); LYMPH # 2.1 K/uL (1.0-4.3); LYMPH % 31.1 % (20.0-40.0); MEAN CELL VOLUME 89.3 fL (81.0-99.0); MEAN CORPUSCULAR HEMOGLOBIN 29.1 pg (27.0-31.0); MEAN CORPUSCULAR HGB CONC 32.5 g/dL (33.0-37.0); MEAN PLATELET VOLUME 8.9 fL (7.2-11.7); MONO # 0.5 K/uL (0.0-0.8); MONO % 7.4 % (0.0-10.0); NEUT # 3.8 K/uL (1.8-7.0); NEUT % 55.9 % (50.0-75.0); NRBC % 0.1 % (0.0-2.0); RBC 3.66 Mil/uL (3.80-5.20); RED CELL DISTRIBUTION WIDTH 13.7 % (11.5-14.5); WHITE BLOOD COUNT 6.9 K/uL (4.8-10.8)
[2018-06-08] MEDS: (Novolin R) Insulin Human Regular 100 units/ml vial SC SCH ×4 (07:21→22:00)
[2018-06-08 07:26] LABS: PROTHROMBIN TIME 11.3 SECONDS (9.7-12.2)
[2018-06-08 07:47] LABS: ALB/GLOB RATIO 1.2 (1.0-2.1); ALBUMIN 3.3 g/dL (3.5-5.0); ALT/SGPT 19 U/L (9-52); AST/SGOT 13 U/L (14-36); BLOOD UREA NITROGEN 17 mg/dL (7-17); CALCIUM 9.3 mg/dl (8.6-10.4); GFR NON-AFRICAN AMERICAN > 60
[2018-06-08] MEDS: Folic Acid/Ascorbic Acid/Ferrous Sulfate 1 Tab PO SCH (10:16)
[2018-06-08] MEDS: Lactobacillus Acidophilus 500 MU Cap PO SCH ×2 (10:16→17:40)
--- NOTE | 2018-06-08 10:25 | MRI ---
MRI left forefoot HISTORY: Ulcer. Evaluate for osteomyelitis. COMPARISON: None available. Technique: Multi-echo multiplanar sequences were performed through the left forefoot without the use of intravenous contrast. Findings: Confluent reticulation and edema seen within the medial and volar subcutaneous soft tissues at the level of the 1st distal phalanx concerning for a cellulitis with possible developing phlegmonous collection. This abuts the medial margin of the medial cortex of the 1st distal phalanx. Suggestion of some mild increased STIR signal and/or minimal reactive edema along the medial cortex of the 1st distal phalanx as demonstrated on series 8, image 8 as well as series 9 images 4 through 7. No gross T1 signal abnormality at this level. These findings are nonspecific; however, some mild early acute and or developing acute osteomyelitic changes cannot entirely be excluded. Clinical correlation. Continued interval follow-up may be helpful if clinically indicated. Alternatively, correlation with three-phase bone scan may be helpful if clinically indicated. Milder reticulation and edema is noted at the level of the 2nd digit also concerning for possible cellulitic changes. Mild hallux valgus deformity. Mild signal abnormality seen within the 1st metatarsal head at the metatarsus sesamoid joint space suggestive for osteochondral change. Patchy reactive edema seen within the lateral aspect of the medial cuneiform bone and middle cuneiform bone with some patchy decreased T1 signal and increased STIR signal also suggestive for osteochondral change versus additional etiology. Clinical correlation. Mild increased signal at the level of the Lisfranc ligament which may represent a low grade sprain. Impression: Confluent reticulation and edema seen within the medial and volar subcutaneous soft tissues at the level of the 1st distal phalanx concerning for a cellulitis with possible developing phlegmonous collection. This abuts the medial margin of the medial cortex of the 1st distal phalanx. Suggestion of some mild increased STIR signal and/or minimal reactive edema along the medial cortex of the 1st distal phalanx as demonstrated on series 8, image 8 as well as series 9 images 4 through 7. No gross T1 signal abnormality at this level. These findings are nonspecific; however, some mild early acute and or developing acute osteomyelitic changes cannot entirely be excluded. Clinical correlation. Continued interval follow-up may be helpful if clinically indicated. Alternatively, correlation with three-phase bone scan may be helpful if clinically indicated. Milder reticulation and edema is noted at the level of the 2nd digit also concerning for possible cellulitic changes. Mild hallux valgus deformity. Mild signal abnormality seen within the 1st metatarsal head at the metatarsus sesamoid joint space suggestive for osteochondral change. Patchy reactive edema seen within the lateral aspect of the medial cuneiform bone and middle cuneiform bone with some patchy decreased T1 signal and increased STIR signal also suggestive for osteochondral change versus additional etiology. Clinical correlation. Mild increased signal at the level of the Lisfranc ligament which may represent a low grade sprain.
--- NOTE | 2018-06-08 11:04 | CP.PCM.PN ---
Subjective - Date & Time of Evaluation Date of Evaluation: 06/08/18 Time of Evaluation: 11:00 - Subjective Subjective: Podiatry Progress note: Dr. Huffman 62 year old female patient was evaluated this morning for right plantar submet head one wound. Patient is AAOx3 and appears in NAD. Appears to be resting comfortably. Denies of any pain today and states that she is feeling well. Denies of any acute overnight events. Denies of recent F/N/V/C/SOB/CP/headache. No other pedal complains at this time. Objective - Vital Signs/Intake and Output Vital Signs (last 24 hours): Temp Pulse Resp BP Pulse Ox 97.8 F 67 18 110/75 99 06/08/18 07:00 06/08/18 07:00 06/08/18 07:00 06/08/18 07:00 06/08/18 07:00 Intake and Output: 06/08/18 06/08/18 06:59 18:59 Intake Total 880 Output Total 0 Balance 880 - Medications Medications: Current Medications Acetaminophen (Tylenol 325mg Tab) 650 mg PO Q6 PRN PRN Reason: Fever >100.4 F Ascorbic Ac/Ferrous Sulf/Folic Acid (Iberet-Folic 500) 1 ter PO DAILY [facility] Last Admin: 06/08/18 10:16 Dose: 1 ter Ascorbic Acid (Vitamin C 500 Mg Tab) 500 mg PO DAILY [facility] Last Admin: 06/08/18 10:16 Dose: 500 mg Docusate Sodium (Colace) 100 mg PO TID [facility] Last Admin: 06/08/18 10:16 Dose: 100 mg Gabapentin (Neurontin) 300 mg PO BID [facility] Last Admin: 06/07/18 18:32 Dose: 300 mg Heparin Sodium (Porcine) (Heparin) 5,000 units SC Q8 [facility] Last Admin: 06/08/18 05:37 Dose: 5,000 units Vancomycin/Sodium Chloride (Vancomycin 1 Gm/Ns 200 Ml) 1 gm in 200 mls @ 133.333 mls/hr IVPB Q12H [facility] PRN Reason: Protocol Stop: 06/11/18 13:01 Last Admin: 06/08/18 01:25 Dose: 133.333 mls/hr Meropenem 500 mg/ Sodium (Chloride) 100 mls @ 100 mls/hr IVPB Q8H [facility] PRN Reason: Protocol Last Admin: 06/08/18 05:36 Dose: 100 mls/hr Insulin Human Regular (Novolin R) 0 unit SC ACHS [facility] PRN Reason: Protocol Last Admin: 06/08/18 07:21 Dose: Not Given Lactobacillus Acidophilus (Bacid Acidophilus) 1 cap PO BID [facility] Last Admin: 06/08/18 10:16 Dose: 1 cap Lisinopril (Zestril) 2.5 mg PO DAILY [facility] Last Admin: 06/08/18 10:16 Dose: 2.5 mg Morphine Sulfate (Morphine) 1 mg IVP Q6H PRN PRN Reason: Pain, severe (8-10) Last Admin: 06/07/18 22:10 Dose: 1 mg Nicotine (Nicoderm Cq) 1 patch TD DAILY [facility] Last Admin: 06/08/18 10:16 Dose: 1 patch Paroxetine HCl (Paxil) 20 mg PO DAILY [facility] Last Admin: 06/08/18 10:16 Dose: 20 mg Rosuvastatin Calcium (Crestor) 10 mg PO HS [facility] Last Admin: 06/07/18 21:23 Dose: 10 mg Topiramate (Topamax) 25 mg PO DAILY [facility] Last Admin: 06/08/18 10:16 Dose: 25 mg - Labs Labs: 06/08/18 06:57 06/08/18 06:57 PT 11.3 SECONDS (9.7-12.2) 06/08/18 06:57 INR 1.0 06/08/18 06:57 APTT 32 SECONDS (21-34) D 06/08/18 06:57 - Constitutional Appears: Well, Non-toxic, No Acute Distress - Extremities Exam Additional comments: Lower Extremity Exam VASC: DP and PT 2/4 bilaterally, CFT less than 3 seconds x 9, TG warm to warm to the right lower extremity in comparison to the LLE, very minimal non-pitting edema noted to the Right foot which has resolved significantly from the time of admission NEURO: diminished protective sensation to bilateral lower extremity DERM: Right Foot- full-thickness 2 cm X 2 cm ulceration present submet 1 of the right foot, fibro-granular base, hyperkeratotic marcela-wound border with hyperpigmentation, +probe to bone, no purulent drainage up on deep palpation, + tracking proximally at 6 'o clock, - malodor, marcela-wound erythema appears to be resolved, ulcer noted to the tip of the 2nd digit, no drainage, no probe to bone Left Foot- pre-ulcerative lesion measuring 3 cm X 4 cm present to submet 1 on the left foot with marcela-wound erythema, hyperkeratotic marcela-wound border with hyperpigmentation, no drainage, no clinical signs of infection to the left foot ORTHO: pain on palpation at the ulceration and diffuse pain on palpation to the right leg and foot, 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 Huffman Labs, vitals and charts reviewed - No leukocytosis; afebrile Foot X-ray 06/05: soft tissue defect plantar submet 1, partial 1st ray amp with osteolytic changes to the stump, periostel changes, no signs of soft tissue emphysema Tib-Fib X-ray 06/05: no signs of soft tissue emphysema Wound Cultures- Pseudomonas Aeruginosa, Klebsiella oxytoca, Strep. viridans MRI- Increase in signal intensity along the shaft of the 1st metatarsal on T2 image consistent with OM Infectious Disease consult- recommendations appreciated - Patient to continue IV Abx as per ID Wound cleansed with betadine/saline flush and dressed with betadine/DSD Podiatry does not plan surgical intervention at this time as patient is clinically stable; mcfp IV abx vs. 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
--- NOTE | 2018-06-08 11:59 | CP.PCM.PN ---
<Allison Gonzalez Y - Last Filed: 06/08/18 15:28> Subjective - Date & Time of Evaluation Date of Evaluation: 06/08/18 Time of Evaluation: 09:30 - Subjective Subjective: PGY-1 Medicine Progress note for Dr. Gutierrez Patient was seen and examined today at bedside in no acute distress. Nurse reports no overnight events. Patient reports no new complaints. Right foot still aches more than left foot, and patient finds it more uncomfortable to walk to the commode today due to excess liquid (betadine) in her wrappings. Denies chest pain, shortness of breath, abdominal pain, difficulty voiding, fever, chills, nausea, vomiting. Objective - Vital Signs/Intake and Output Vital Signs (last 24 hours): Temp Pulse Resp BP Pulse Ox 97.8 F 67 18 110/75 99 06/08/18 07:00 06/08/18 11:42 06/08/18 07:00 06/08/18 07:00 06/08/18 07:00 Intake and Output: 06/08/18 06/08/18 06:59 18:59 Intake Total 880 Output Total 0 Balance 880 - Medications Medications: Current Medications Acetaminophen (Tylenol 325mg Tab) 650 mg PO Q6 PRN PRN Reason: Fever >100.4 F Ascorbic Ac/Ferrous Sulf/Folic Acid (Iberet-Folic 500) 1 ter PO DAILY [facility] Last Admin: 06/08/18 10:16 Dose: 1 ter Ascorbic Acid (Vitamin C 500 Mg Tab) 500 mg PO DAILY [facility] Last Admin: 06/08/18 10:16 Dose: 500 mg Gabapentin (Neurontin) 300 mg PO BID [facility] Last Admin: 06/08/18 11:00 Dose: 300 mg Heparin Sodium (Porcine) (Heparin) 5,000 units SC Q8 [facility] Last Admin: 06/08/18 05:37 Dose: 5,000 units Vancomycin/Sodium Chloride (Vancomycin 1 Gm/Ns 200 Ml) 1 gm in 200 mls @ 133.333 mls/hr IVPB Q12H [facility] PRN Reason: Protocol Stop: 06/11/18 13:01 Last Admin: 06/08/18 01:25 Dose: 133.333 mls/hr Meropenem 500 mg/ Sodium (Chloride) 100 mls @ 100 mls/hr IVPB Q8H [facility] PRN Reason: Protocol Last Admin: 06/08/18 05:36 Dose: 100 mls/hr Insulin Human Regular (Novolin R) 0 unit SC ACHS [facility] PRN Reason: Protocol Last Admin: 06/08/18 07:21 Dose: Not Given Lactobacillus Acidophilus (Bacid Acidophilus) 1 cap PO BID [facility] Last Admin: 06/08/18 10:16 Dose: 1 cap Lisinopril (Zestril) 2.5 mg PO DAILY [facility] Last Admin: 06/08/18 10:16 Dose: 2.5 mg Morphine Sulfate (Morphine) 1 mg IVP Q6H PRN PRN Reason: Pain, severe (8-10) Last Admin: 06/07/18 22:10 Dose: 1 mg Nicotine (Nicoderm Cq) 1 patch TD DAILY [facility] Last Admin: 06/08/18 10:16 Dose: 1 patch Paroxetine HCl (Paxil) 20 mg PO DAILY [facility] Last Admin: 06/08/18 10:16 Dose: 20 mg Rosuvastatin Calcium (Crestor) 10 mg PO HS [facility] Last Admin: 06/07/18 21:23 Dose: 10 mg Topiramate (Topamax) 25 mg PO DAILY [facility] Last Admin: 06/08/18 10:16 Dose: 25 mg - Labs Labs: 06/08/18 06:57 06/08/18 06:57 PT 11.3 SECONDS (9.7-12.2) 06/08/18 06:57 INR 1.0 06/08/18 06:57 APTT 32 SECONDS (21-34) D 06/08/18 06:57 - Constitutional Appears: Non-toxic, No Acute Distress - Head Exam Head Exam: ATRAUMATIC, NORMOCEPHALIC - Eye Exam Eye Exam: EOMI, Normal appearance - ENT Exam ENT Exam: Mucous Membranes Moist, Normal Exam - Respiratory Exam Respiratory Exam: Clear to Ausculation Bilateral, NORMAL BREATHING PATTERN. absent: Rales, Rhonchi, Wheezes - Cardiovascular Exam Cardiovascular Exam: REGULAR RHYTHM, +S1, +S2. absent: Gallop, Rubs, Murmur - GI/Abdominal Exam GI & Abdominal Exam: Soft, Normal Bowel Sounds. absent: Distended, Firm, Tenderness - Extremities Exam Extremities Exam: Full ROM, Normal Capillary Refill Additional comments: dressings on bilateral feet, c/i. R foot has betadine leaking through 2.5x1.5 cm ulcer at base of right 1st metatarsal feet being redressed by surgery and podiatry feet swollen and warm to touch peripheral pulses palpable bilaterally (radial, PT) IV in R AC - Neurological Exam Neurological Exam: Alert, Awake, Oriented x3 - Psychiatric Exam Psychiatric exam: Normal Affect, Normal Mood - Skin Skin Exam: Dry, Normal Color Assessment and Plan - Assessment and Plan (Free Text) Assessment: 62 year old female with a past medical history of depression, diabetes, hypertension, and hyperlipidemia admitted for evaluation and treatment of bilateral non-healing diabetic foot ulceration leading to osteomyelitis. 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 1.8cm abscess laterally adjacent to 1st metatarsal head. Acute osteomyelitis within the 1st metatarsal, and at 2nd proximal phalanx. Mild fraying consistent with low grade sprained ankle or partial tear. Prominent degen changes in the midfoot with bony spurring and osteochondral changes - MRI L LE (06/07): cellulitis, early osteomyelitis at 1st distal phalanx. Milder reticulation, possible cellulitis at the 2nd digit. Osteochondral changes. Low grade sprained ankle or partial tear. - wound Cx (06/05): Pseudomonas Aerugenousa, Klebsiella Oxytoca, both sensitive to Merrem. Streptococcus Viridans, awaiting sensitivities; empirically covered by vanc - ED: Tylenol, Cefazolin, Vancomycin x2, Toradol, Fluid Bolus. - Podiatry consulted: Dr. Nathanael pereira appreciated - wound cleansed with betadine/saline flush; redressed with betadine/DSD - no surgery indicated at this time - will continue to follow - ID consulted: Dr. Amadeo pereira appreciated - cont IV abx - will continue to follow - Vancomycin 1gm IVPB q12 (started 06/05) - vanc trough (06/07) 9.8 - next vanc trough 06/09 @ 0030 - Zosyn 3.375gm IVPB q6 (06/06-06/07) stopped d/t poor sensitivity - Merrem 500mg IVPB q8 (started 06/07) - Morphine 1mg IVP q6 prn - Vitamin C 500mg po daily - blood Cx (06/05) negative at 48 hours. Pending negative at 72 hours before PICC /midline placement for assisted abx for osteomyelitis. Sepsis - Fever: Tmax - 06/05 @ 2024: 101.3F, WBC 11.6, HR 108 - foot ulceration as likely source - VBG lactate: 3.2 -> 1.0 - CXR (06/05): mild venous congestion; negative for acute disease process - urine Cx (06/05): negative - f/u blood Cx (06/05): negative @ 48 hours - abx as above: Vancomycin and Merrem - Tylenol 650mg po q6 prn for fever > 100.4F Right Lower Ext. Swelling - US RLE venous Doppler (06/06): negative - US RLE arterial Doppler: negative, pending official read. JACEK R 1.12, JACEK L 1.07. - continue to monitor swelling Hx of Hyperlipidemia - home Simvastatin 40mg -> Crestor 10mg po HS Hx of Diabetes w/ neuropathy - Hold Home meds - ISS ACHS - currently well controlled on ISS without basal insulin - Gabapentin 300mg po bid - Lisinopril 2.5mg po daily Hx of Psych Disorders: - home Paxil 20mg po daily - home Topiramate 25mg po daily Constipation - Colace 100 mg po TID Tobacco use - Nicotine 7mg/24hr 1 patch TD daily - counseled on cessation PPx - DVT: Heparin 5000u sc q8, SCDs CI d/t LE swelling - GI: not indicated at this time, Bacid - Diabetic Diet Dispo: Will speak to Dr. Childs about options for GUSTABO and home antibiotics. Ideally, patient would take one po antibiotic after leaving [facility]. Patient would like to leave hospital for GUSTABO as she trusts her outside route driver salesperson would like to return to their care. d/w Dr. Matt Gonzalez PGY-1 <Serafin Gutierrez - Last Filed: 06/08/18 19:31> Objective - Vital Signs/Intake and Output Vital Signs (last 24 hours): Temp Pulse Resp BP Pulse Ox 98.4 F 71 20 110/74 95 06/08/18 15:35 06/08/18 15:35 06/08/18 15:35 06/08/18 15:35 06/08/18 15:35 Intake and Output: 06/08/18 06/09/18 18:59 06:59 Intake Total 800 Balance 800 - Medications Medications: Current Medications Acetaminophen (Tylenol 325mg Tab) 650 mg PO Q6 PRN PRN Reason: Fever >100.4 F Ascorbic Ac/Ferrous Sulf/Folic Acid (Iberet-Folic 500) 1 ter PO DAILY [facility] Last Admin: 06/08/18 10:16 Dose: 1 ter Ascorbic Acid (Vitamin C 500 Mg Tab) 500 mg PO DAILY [facility] Last Admin: 06/08/18 10:16 Dose: 500 mg Gabapentin (Neurontin) 300 mg PO BID [facility] Last Admin: 06/08/18 17:40 Dose: 300 mg Heparin Sodium (Porcine) (Heparin) 5,000 units SC Q8 [facility] Last Admin: 06/08/18 13:40 Dose: 5,000 units Vancomycin/Sodium Chloride (Vancomycin 1 Gm/Ns 200 Ml) 1 gm in 200 mls @ 133.333 mls/hr IVPB Q12H [facility] PRN Reason: Protocol Stop: 06/11/18 13:01 Last Admin: 06/08/18 12:48 Dose: 133.333 mls/hr Meropenem 500 mg/ Sodium (Chloride) 100 mls @ 100 mls/hr IVPB Q8H [facility] PRN Reason: Protocol Last Admin: 06/08/18 14:38 Dose: 100 mls/hr Insulin Human Regular (Novolin R) 0 unit SC ACHS [facility] PRN Reason: Protocol Last Admin: 06/08/18 17:40 Dose: 2 units Lactobacillus Acidophilus (Bacid Acidophilus) 1 cap PO BID [facility] Last Admin: 06/08/18 17:40 Dose: 1 cap Lisinopril (Zestril) 2.5 mg PO DAILY [facility] Last Admin: 06/08/18 10:16 Dose: 2.5 mg Morphine Sulfate (Morphine) 1 mg IVP Q6H PRN PRN Reason: Pain, severe (8-10) Last Admin: 06/08/18 13:49 Dose: 1 mg Nicotine (Nicoderm Cq) 1 patch TD DAILY [facility] Last Admin: 06/08/18 10:16 Dose: 1 patch Paroxetine HCl (Paxil) 20 mg PO DAILY [facility] Last Admin: 06/08/18 10:16 Dose: 20 mg Rosuvastatin Calcium (Crestor) 10 mg PO HS [facility] Last Admin: 06/07/18 21:23 Dose: 10 mg Topiramate (Topamax) 25 mg PO DAILY [facility] Last Admin: 06/08/18 10:16 Dose: 25 mg - Labs Labs: 06/08/18 06:57 06/08/18 06:57 PT 11.3 SECONDS (9.7-12.2) 06/08/18 06:57 INR 1.0 06/08/18 06:57 APTT 32 SECONDS (21-34) D 06/08/18 06:57 Attending/Attestation - Attestation I have personally seen and examined this patient.: Yes I have fully participated in the care of the patient.: Yes I have reviewed all pertinent clinical information, including history, physical exam and plan: Yes Notes (Text): 06/08/18 19:20 Patient was seen and examined at 10:50 AM 06/08/18 Care of this patient was gone over with the resident Would culture of Right Foot Ulcer 06/05/18 showed: Psuedomonas sensitive to Meropenem Klebsiella sensitive to Meropenem Strep viridans sensitivity is pending however patient is on Vancomycin F/U Vancomycin Trough at 12:30 AM 06/09/18 with goal trough to be between 15-20 Once Blood Culture is negative at 72 hours will have PICC Line placed as patient will need at least 6 weeks of IV antibiotics. Will speak with ID Dr. Childs concerning best choice of antibiotic preferably one requiring less frequency of administration IV (not PO as mentioned above). Patient wants to go to to [facility]. Spoke with Stitcher Operator Aye and she is aware but would need choice of antibiotic first. Again we will speak with ID Dr. Childs. Spoke with Podiatry Resident Dr. Gutierrez about my concerns of the possibility of abscesses in the Right Foot as mentioned in MRI report. Podiatry Team does not have plans for surgery at this time and Dr. Gutierrez revealed to me that the patient would prefer any future intervention by her own Acid Dipper Dr. Benjamin and patient reiterated this to me at the time of my exam after I had explained to her the findings on both MRIs. Serafin Gutierrez D.O.
[2018-06-09] MEDS: Vancomycin 1 gm/NS 200 ml 1 GM/200 ML BAG IVPB SCH ×2 (02:06→14:19)
[2018-06-09] MEDS: Meropenem 500 MG in Sodium Chloride 0.9% 100 ML IVPB SCH ×3 (06:26→21:50)
--- NOTE | 2018-06-09 06:57 | CP.PCM.PN ---
<Silvio Vargas M - Last Filed: 06/09/18 15:47> Subjective - Date & Time of Evaluation Date of Evaluation: 06/09/18 Time of Evaluation: 07:30 - Subjective Subjective: PGY1 Medicine Progress Note for Dr. Serafin Gutierrez. Patient seen and examined at bedside. Patient lying in bed in no acute distress. No overnight events reported. Patient currently denies chest pain, SOB , constipation, nausea, vomiting, diarrhea, vision changes. Patient states she has some pain on bilateral lower feet. Objective - Vital Signs/Intake and Output Vital Signs (last 24 hours): Temp Pulse Resp BP Pulse Ox 98.6 F 69 20 102/68 95 06/09/18 00:00 06/09/18 00:00 06/09/18 00:00 06/09/18 00:00 06/09/18 00:00 Intake and Output: 06/08/18 06/09/18 18:59 06:59 Intake Total 800 Balance 800 - Medications Medications: Current Medications Acetaminophen (Tylenol 325mg Tab) 650 mg PO Q6 PRN PRN Reason: Fever >100.4 F Ascorbic Ac/Ferrous Sulf/Folic Acid (Iberet-Folic 500) 1 ter PO DAILY [facility] Last Admin: 06/08/18 10:16 Dose: 1 ter Ascorbic Acid (Vitamin C 500 Mg Tab) 500 mg PO DAILY [facility] Last Admin: 06/08/18 10:16 Dose: 500 mg Gabapentin (Neurontin) 300 mg PO BID [facility] Last Admin: 06/08/18 17:40 Dose: 300 mg Heparin Sodium (Porcine) (Heparin) 5,000 units SC Q8 [facility] Last Admin: 06/09/18 06:26 Dose: 5,000 units Vancomycin/Sodium Chloride (Vancomycin 1 Gm/Ns 200 Ml) 1 gm in 200 mls @ 133.333 mls/hr IVPB Q12H [facility] PRN Reason: Protocol Stop: 06/11/18 13:01 Last Admin: 06/09/18 02:06 Dose: 133.333 mls/hr Meropenem 500 mg/ Sodium (Chloride) 100 mls @ 100 mls/hr IVPB Q8H [facility] PRN Reason: Protocol Last Admin: 06/09/18 06:26 Dose: 100 mls/hr Insulin Human Regular (Novolin R) 0 unit SC ACHS [facility] PRN Reason: Protocol Last Admin: 06/08/18 22:00 Dose: Not Given Lactobacillus Acidophilus (Bacid Acidophilus) 1 cap PO BID [facility] Last Admin: 06/08/18 17:40 Dose: 1 cap Lisinopril (Zestril) 2.5 mg PO DAILY [facility] Last Admin: 06/08/18 10:16 Dose: 2.5 mg Morphine Sulfate (Morphine) 1 mg IVP Q6H PRN PRN Reason: Pain, severe (8-10) Last Admin: 06/08/18 21:27 Dose: 1 mg Nicotine (Nicoderm Cq) 1 patch TD DAILY [facility] Last Admin: 06/08/18 10:16 Dose: 1 patch Paroxetine HCl (Paxil) 20 mg PO DAILY [facility] Last Admin: 06/08/18 10:16 Dose: 20 mg Rosuvastatin Calcium (Crestor) 10 mg PO HS [facility] Last Admin: 06/08/18 21:27 Dose: 10 mg Topiramate (Topamax) 25 mg PO DAILY [facility] Last Admin: 06/08/18 10:16 Dose: 25 mg - Labs Labs: 06/08/18 06:57 06/08/18 06:57 PT 11.3 SECONDS (9.7-12.2) 06/08/18 06:57 INR 1.0 06/08/18 06:57 APTT 32 SECONDS (21-34) D 06/08/18 06:57 - Constitutional Appears: Non-toxic, No Acute Distress - Head Exam Head Exam: ATRAUMATIC, NORMAL INSPECTION, NORMOCEPHALIC - Eye Exam Eye Exam: EOMI, Normal appearance - ENT Exam ENT Exam: Mucous Membranes Moist - Respiratory Exam Respiratory Exam: Clear to Ausculation Bilateral, NORMAL BREATHING PATTERN. absent: Rales, Rhonchi, Wheezes - Cardiovascular Exam Cardiovascular Exam: +S1, +S2. absent: Irregular Rhythm, Murmur - Extremities Exam Extremities Exam: Full ROM. absent: Calf Tenderness, Pedal Edema Additional comments: dressings on bilateral feet, c/i. R foot has betadine leaking through dressing not removed as it was just placed by podiatry & to reduce risk of further infection per podiatry: Right Foot- full-thickness 2 cm X 2 cm ulceration present submet 1 of the right foot, fibro-granular base, hyperkeratotic marcela-wound border with hyperpigmentation, +probe to bone, no purulent drainage up on deep palpation, + tracking proximally at 6 'o clock, - malodor, marcela-wound erythema appears to be resolved, ulcer noted to the tip of the 2nd digit, no drainage, no probe to bone Left Foot- pre-ulcerative lesion measuring 3 cm X 4 cm present to submet 1 on the left foot with marcela-wound erythema, hyperkeratotic marcela-wound border with hyperpigmentation, no drainage, no clinical signs of infection to the left foot - Neurological Exam Neurological Exam: Alert, Awake, Oriented x3 - Psychiatric Exam Psychiatric exam: Normal Affect, Normal Mood Assessment and Plan - Assessment and Plan (Free Text) Assessment: 62 year old female with a past medical history of depression, diabetes, hypertension, and hyperlipidemia admitted for evaluation and treatment of bilateral non-healing diabetic foot ulceration leading to osteomyelitis. 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 1.8cm abscess laterally adjacent to 1st metatarsal head. Acute osteomyelitis within the 1st metatarsal, and at 2nd proximal phalanx. Mild fraying consistent with low grade sprained ankle or partial tear. Prominent degen changes in the midfoot with bony spurring and osteochondral changes - MRI L LE (06/07): cellulitis, early osteomyelitis at 1st distal phalanx. Milder reticulation, possible cellulitis at the 2nd digit. Osteochondral changes. Low grade sprained ankle or partial tear. - wound Cx (06/05): Pseudomonas Aerugenousa, Klebsiella Oxytoca, both sensitive to Merrem. Streptococcus Viridans, awaiting sensitivities; empirically covered by vanc - ED: Tylenol, Cefazolin, Vancomycin x2, Toradol, Fluid Bolus. - Podiatry consulted: Dr. Nathanael pereira appreciated - wound cleansed with betadine/saline flush; redressed with betadine/DSD - no surgery indicated at this time - will continue to follow - ID consulted: Dr. Amadeo pereira appreciated - cont IV abx - will continue to follow - Vancomycin 1gm IVPB q12 (started 06/05) - vanc trough (06/09) 14.1, will keep same dosing - Next vanc troph 06/10 @12:30PM - Zosyn 3.375gm IVPB q6 (06/06-06/07) stopped d/t poor sensitivity - Merrem 500mg IVPB q8 (started 06/07) - Morphine 1mg IVP q6 prn - Vitamin C 500mg po daily - blood Cx (06/05) negative at 72 hours. PICC/midline placement for correction abx for osteomyelitis conset obtained - after speaking w/ Pt patient amendable to I&D for abscess on foot. I&D scheduled for 06/13 @ 7:45AM. Will follow up and for possible GUSTABO placement at [facility] - F/u CXR, EKG, PT/INR in AM 06/10 for medical clearance for surgery on 06/13 Sepsis - Fever: Tmax - 06/05 @ 2024: 101.3F, WBC 11.6, HR 108 - foot ulceration as likely source - VBG lactate: 3.2 -> 1.0 - CXR (06/05): mild venous congestion; negative for acute disease process - urine Cx (06/05): negative - blood Cx (06/05): negative @ 72 hours - abx as above: Vancomycin and Merrem - Tylenol 650mg po q6 prn for fever > 100.4F Right Lower Ext. Swelling - US RLE venous Doppler (06/06): negative - US RLE arterial Doppler: negative, pending official read. JACEK R 1.12, JACEK L 1.07. - continue to monitor swelling Hx of Hyperlipidemia - home Simvastatin 40mg -> Crestor 10mg po HS Hx of Diabetes w/ neuropathy - Hold Home meds - ISS ACHS - currently well controlled on ISS without basal insulin - Gabapentin 300mg po bid - Lisinopril 2.5mg po daily Hx of Psych Disorders: - home Paxil 20mg po daily - home Topiramate 25mg po daily Constipation - Colace 100 mg po TID Tobacco use - Nicotine 7mg/24hr 1 patch TD daily - counseled on cessation PPx - DVT: Heparin 5000u sc q8, SCDs CI d/t LE swelling - GI: not indicated at this time, Bacid - Diabetic Diet Dispo: Patient scheduled for I&D on 06/13 at 7:45 with podiatry as patient agreed to have procedure while in hospital. Will follow up for Celine MONTEJO following procedure. Will follow up Chest Xray tomorrow, PT/INR, EKG for clearance for surgery. PICC line consent obtained today 06/09 and will likely have PICC line in place today. d/w Dr. Matt Vargas PGY-1 <Serafin Gutierrez - Last Filed: 06/10/18 20:12> Objective - Vital Signs/Intake and Output Vital Signs (last 24 hours): Temp Pulse Resp BP Pulse Ox 98.1 F 62 20 114/77 100 06/10/18 16:00 06/10/18 16:00 06/10/18 16:00 06/10/18 16:00 06/10/18 16:00 - Medications Medications: Current Medications Acetaminophen (Tylenol 325mg Tab) 650 mg PO Q6 PRN PRN Reason: Fever >100.4 F Ascorbic Ac/Ferrous Sulf/Folic Acid (Iberet-Folic 500) 1 ter PO DAILY [facility] Last Admin: 06/10/18 10:24 Dose: 1 ter Ascorbic Acid (Vitamin C 500 Mg Tab) 500 mg PO DAILY [facility] Last Admin: 06/10/18 10:24 Dose: 500 mg Gabapentin (Neurontin) 300 mg PO BID [facility] Last Admin: 06/10/18 18:53 Dose: 300 mg Heparin Sodium (Porcine) (Heparin) 5,000 units SC Q8 [facility] Last Admin: 06/10/18 13:36 Dose: 5,000 units Vancomycin/Sodium Chloride (Vancomycin 1 Gm/Ns 200 Ml) 1 gm in 200 mls @ 133.333 mls/hr IVPB Q12H [facility] PRN Reason: Protocol Stop: 06/11/18 13:01 Last Admin: 06/10/18 13:33 Dose: 133.333 mls/hr Meropenem 500 mg/ Sodium (Chloride) 100 mls @ 100 mls/hr IVPB Q8H [facility] PRN Reason: Protocol Last Admin: 06/10/18 16:12 Dose: 100 mls/hr Insulin Human Regular (Novolin R) 0 unit SC ACHS [facility] PRN Reason: Protocol Last Admin: 06/10/18 18:54 Dose: Not Given Lactobacillus Acidophilus (Bacid Acidophilus) 1 cap PO BID [facility] Last Admin: 06/10/18 18:53 Dose: 1 cap Lisinopril (Zestril) 2.5 mg PO DAILY [facility] Last Admin: 06/10/18 10:49 Dose: 2.5 mg Morphine Sulfate (Morphine) 1 mg IVP Q6H PRN PRN Reason: Pain, severe (8-10) Last Admin: 06/10/18 12:33 Dose: 1 mg Nicotine (Nicoderm Cq) 1 patch TD DAILY [facility] Last Admin: 06/10/18 10:24 Dose: 1 patch Paroxetine HCl (Paxil) 20 mg PO DAILY [facility] Last Admin: 06/10/18 10:24 Dose: 20 mg Rosuvastatin Calcium (Crestor) 10 mg PO HS [facility] Last Admin: 06/09/18 21:50 Dose: 10 mg Topiramate (Topamax) 25 mg PO DAILY [facility] Last Admin: 06/10/18 10:24 Dose: 25 mg - Labs Labs: 06/10/18 07:01 06/10/18 07:01 PT 11.2 SECONDS (9.7-12.2) 06/10/18 07:01 INR 1.0 06/10/18 07:01 APTT 32 SECONDS (21-34) D 06/08/18 06:57 Attending/Attestation - Attestation I have personally seen and examined this patient.: Yes I have fully participated in the care of the patient.: Yes I have reviewed all pertinent clinical information, including history, physical exam and plan: Yes Notes (Text): 06/10/18 20:12 This is a late entry. Care of this patient was gone over in detail with the resident. Serafin Gutierrez D.O.
[2018-06-09 08:13] LABS: BASO # 0.1 K/uL (0.0-0.2); EOS # 0.2 K/uL (0.0-0.7); EOS % 4.5 % (0.0-4.0); LYMPH # 2.1 K/uL (1.0-4.3); LYMPH % 39.7 % (20.0-40.0); MEAN CELL VOLUME 88.9 fL (81.0-99.0); MEAN CORPUSCULAR HEMOGLOBIN 29.2 pg (27.0-31.0); MEAN CORPUSCULAR HGB CONC 32.8 g/dL (33.0-37.0); MEAN PLATELET VOLUME 8.5 fL (7.2-11.7); MONO # 0.5 K/uL (0.0-0.8); MONO % 9.3 % (0.0-10.0); NEUT # 2.4 K/uL (1.8-7.0); NEUT % 45.5 % (50.0-75.0); NRBC % 0.1 % (0.0-2.0); RBC 3.77 Mil/uL (3.80-5.20); RED CELL DISTRIBUTION WIDTH 13.4 % (11.5-14.5); WHITE BLOOD COUNT 5.3 K/uL (4.8-10.8)
--- NOTE | 2018-06-09 08:14 | CP.PCM.PN ---
Subjective - Date & Time of Evaluation Date of Evaluation: 06/09/18 Time of Evaluation: 08:11 - Subjective Subjective: Podiatry Progress note: Dr. Huffman 62 year old female patient was evaluated this morning for right plantar submet head one wound. Patient is AAOx3 and appears in NAD. Appears to be resting comfortably. Reports that she has pain in her right foot when she walks but denies of any resting pain. Denies of any acute overnight events. Denies of recent F/N/V/C/SOB/CP/headache. No other pedal complains at this time. Objective - Vital Signs/Intake and Output Vital Signs (last 24 hours): Temp Pulse Resp BP Pulse Ox 97.9 F 62 20 114/69 99 06/09/18 07:46 06/09/18 07:46 06/09/18 07:46 06/09/18 07:46 06/09/18 07:46 - Medications Medications: Current Medications Acetaminophen (Tylenol 325mg Tab) 650 mg PO Q6 PRN PRN Reason: Fever >100.4 F Ascorbic Ac/Ferrous Sulf/Folic Acid (Iberet-Folic 500) 1 ter PO DAILY [facility] Last Admin: 06/08/18 10:16 Dose: 1 ter Ascorbic Acid (Vitamin C 500 Mg Tab) 500 mg PO DAILY [facility] Last Admin: 06/08/18 10:16 Dose: 500 mg Gabapentin (Neurontin) 300 mg PO BID [facility] Last Admin: 06/08/18 17:40 Dose: 300 mg Heparin Sodium (Porcine) (Heparin) 5,000 units SC Q8 [facility] Last Admin: 06/09/18 06:26 Dose: 5,000 units Vancomycin/Sodium Chloride (Vancomycin 1 Gm/Ns 200 Ml) 1 gm in 200 mls @ 133.333 mls/hr IVPB Q12H [facility] PRN Reason: Protocol Stop: 06/11/18 13:01 Last Admin: 06/09/18 02:06 Dose: 133.333 mls/hr Meropenem 500 mg/ Sodium (Chloride) 100 mls @ 100 mls/hr IVPB Q8H [facility] PRN Reason: Protocol Last Admin: 06/09/18 06:26 Dose: 100 mls/hr Insulin Human Regular (Novolin R) 0 unit SC ACHS [facility] PRN Reason: Protocol Last Admin: 06/08/18 22:00 Dose: Not Given Lactobacillus Acidophilus (Bacid Acidophilus) 1 cap PO BID [facility] Last Admin: 06/08/18 17:40 Dose: 1 cap Lisinopril (Zestril) 2.5 mg PO DAILY [facility] Last Admin: 06/08/18 10:16 Dose: 2.5 mg Morphine Sulfate (Morphine) 1 mg IVP Q6H PRN PRN Reason: Pain, severe (8-10) Last Admin: 06/08/18 21:27 Dose: 1 mg Nicotine (Nicoderm Cq) 1 patch TD DAILY [facility] Last Admin: 06/08/18 10:16 Dose: 1 patch Paroxetine HCl (Paxil) 20 mg PO DAILY [facility] Last Admin: 06/08/18 10:16 Dose: 20 mg Rosuvastatin Calcium (Crestor) 10 mg PO HS [facility] Last Admin: 06/08/18 21:27 Dose: 10 mg Topiramate (Topamax) 25 mg PO DAILY [facility] Last Admin: 06/08/18 10:16 Dose: 25 mg - Labs Labs: 06/08/18 06:57 06/08/18 06:57 PT 11.3 SECONDS (9.7-12.2) 06/08/18 06:57 INR 1.0 06/08/18 06:57 APTT 32 SECONDS (21-34) D 06/08/18 06:57 - Constitutional Appears: Well, Non-toxic, No Acute Distress - Extremities Exam Additional comments: Lower Extremity Exam VASC: DP and PT 2/4 bilaterally, CFT less than 3 seconds x 9, TG warm to cool from proximal to distal bilaterally, no non-pitting edema noted to the Right foot which has resolved significantly from the time of admission NEURO: diminished protective sensation to bilateral lower extremity DERM: Right Foot- full-thickness 2 cm X 2 cm ulceration present submet 1 of the right foot, fibro-granular base, hyperkeratotic marcela-wound border with hyperpigmentation, +probe to bone, no purulent drainage up on deep palpation, + tracking proximally at 6 'o clock, - malodor, marcela-wound erythema appears to be resolved, ulcer noted to the tip of the 2nd digit, no drainage, no probe to bone Left Foot- pre-ulcerative lesion measuring 3 cm X 4 cm present to submet 1 on the left foot with marcela-wound erythema, hyperkeratotic marcela-wound border with hyperpigmentation, no drainage, no clinical signs of infection to the left foot ORTHO: pain on palpation at the ulceration and diffuse pain on palpation to the right leg and foot, 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 Huffman Labs, vitals and charts reviewed - No leukocytosis; afebrile Foot X-ray 06/05: soft tissue defect plantar submet 1, partial 1st ray amp with osteolytic changes to the stump, periostel changes, no signs of soft tissue emphysema Tib-Fib X-ray 06/05: no signs of soft tissue emphysema Wound Cultures- Pseudomonas Aeruginosa, Klebsiella oxytoca, Strep. viridans MRI- Increase in signal intensity along the shaft of the 1st metatarsal on T2 image consistent with OM Infectious Disease consult- recommendations appreciated - Patient to continue IV Abx as per ID Wound cleansed with betadine/saline flush and dressed with betadine/DSD Podiatry does not plan surgical intervention at this time as patient is clinically stable; shelter IV abx vs. 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
[2018-06-09] MEDS: (Novolin R) Insulin Human Regular 100 units/ml vial SC SCH ×4 (08:30→21:32)
[2018-06-09 08:37] LABS: ALB/GLOB RATIO 1.3 (1.0-2.1); ALBUMIN 3.6 g/dL (3.5-5.0); ALT/SGPT 21 U/L (9-52); AST/SGOT 11 U/L (14-36); BLOOD UREA NITROGEN 18 mg/dL (7-17); CALCIUM 9.8 mg/dl (8.6-10.4); GFR NON-AFRICAN AMERICAN > 60
[2018-06-09] MEDS: Lactobacillus Acidophilus 500 MU Cap PO SCH ×2 (11:14→17:35)
[2018-06-09] MEDS: Folic Acid/Ascorbic Acid/Ferrous Sulfate 1 Tab PO SCH (11:15)
--- NOTE | 2018-06-09 14:13 | CP.PCM.PN ---
Subjective - Date & Time of Evaluation Date of Evaluation: 06/09/18 Time of Evaluation: 14:00 - Subjective Subjective: dictated Objective - Vital Signs/Intake and Output Vital Signs (last 24 hours): Temp Pulse Resp BP Pulse Ox 97.9 F 62 20 114/69 99 06/09/18 07:46 06/09/18 07:46 06/09/18 07:46 06/09/18 07:46 06/09/18 07:46 - Medications Medications: Current Medications Acetaminophen (Tylenol 325mg Tab) 650 mg PO Q6 PRN PRN Reason: Fever >100.4 F Ascorbic Ac/Ferrous Sulf/Folic Acid (Iberet-Folic 500) 1 ter PO DAILY [facility] Last Admin: 06/09/18 11:15 Dose: 1 ter Ascorbic Acid (Vitamin C 500 Mg Tab) 500 mg PO DAILY [facility] Last Admin: 06/09/18 11:21 Dose: 500 mg Gabapentin (Neurontin) 300 mg PO BID [facility] Last Admin: 06/09/18 11:12 Dose: 300 mg Heparin Sodium (Porcine) (Heparin) 5,000 units SC Q8 [facility] Last Admin: 06/09/18 06:26 Dose: 5,000 units Vancomycin/Sodium Chloride (Vancomycin 1 Gm/Ns 200 Ml) 1 gm in 200 mls @ 133.333 mls/hr IVPB Q12H [facility] PRN Reason: Protocol Stop: 06/11/18 13:01 Last Admin: 06/09/18 02:06 Dose: 133.333 mls/hr Meropenem 500 mg/ Sodium (Chloride) 100 mls @ 100 mls/hr IVPB Q8H [facility] PRN Reason: Protocol Last Admin: 06/09/18 06:26 Dose: 100 mls/hr Insulin Human Regular (Novolin R) 0 unit SC ACHS [facility] PRN Reason: Protocol Last Admin: 06/09/18 12:55 Dose: 3 units Lactobacillus Acidophilus (Bacid Acidophilus) 1 cap PO BID [facility] Last Admin: 06/09/18 11:14 Dose: 1 cap Lisinopril (Zestril) 2.5 mg PO DAILY [facility] Last Admin: 06/09/18 11:15 Dose: 2.5 mg Morphine Sulfate (Morphine) 1 mg IVP Q6H PRN PRN Reason: Pain, severe (8-10) Last Admin: 06/08/18 21:27 Dose: 1 mg Nicotine (Nicoderm Cq) 1 patch TD DAILY [facility] Last Admin: 06/09/18 11:14 Dose: 1 patch Paroxetine HCl (Paxil) 20 mg PO DAILY [facility] Last Admin: 06/09/18 11:12 Dose: 20 mg Rosuvastatin Calcium (Crestor) 10 mg PO HS [facility] Last Admin: 06/08/18 21:27 Dose: 10 mg Topiramate (Topamax) 25 mg PO DAILY [facility] Last Admin: 06/09/18 11:12 Dose: 25 mg - Labs Labs: 06/09/18 01:59 06/09/18 01:59 PT 11.3 SECONDS (9.7-12.2) 06/08/18 06:57 INR 1.0 06/08/18 06:57 APTT 32 SECONDS (21-34) D 06/08/18 06:57
--- NOTE | 2018-06-09 15:45 | RAD ---
Date of service: 06/09/2018 HISTORY: PICC Insertion COMPARISON: Frontal chest radiograph 06/05/2018. FINDINGS: LUNGS: No active pulmonary disease. PLEURA: No significant pleural effusion identified, no pneumothorax apparent. CARDIOVASCULAR: Normal cardiac silhouette once again. No pulmonary vascular congestion. Right upper straight PICC inserted terminating at distal superior vena cava. OSSEOUS STRUCTURES: No significant abnormalities. VISUALIZED UPPER ABDOMEN: Normal. OTHER FINDINGS: None. IMPRESSION: No acute cardiopulmonary disease appreciated. Right PICC now inserted terminating in SVC as discussed above. No pneumothorax.
--- NOTE | 2018-06-09 16:48 | VASCLAB ---
Date of service: 06/07/2018 STUDY DESCRIPTION: Lower Extremity Arterial Exam (PVR). HISTORY: diabetic footulcers r/o osteo ,PVD PRIORS: None. TECHNIQUE: Pulse volume recording waveforms and segmental pressures of bilateral lower extremities at multiple levels were obtained. Ankle Brachial Indices (ABIs) were calculated. Report prepared by STARR Rouse RIGHT LOWER EXTREMITY: * Brachial artery: Pressure - 123 mmHg. * High thigh: Pressure-unable to be obtained optimally. MmHg: PVR waveform - Pulsatile * Low thigh: Pressure - 140 mmHg: Ratio - 1.14 PVR waveform: Pulsatile * Calf: Pressure - 147 mmHg: Ratio - 1.20 PVR waveform: Pulsatile * Posterior tibial Artery: Pressure - 137 mmHg: Ratio - 1.11 PVR waveform: Pulsatile * Dorsalis pedis Artery: Pressure - 138 mmHg: Ratio - 1.12 PVR waveform: Pulsatile Ankle brachial index (JACEK): 1.12 LEFT LOWER EXTREMITY: * Brachial artery: Pressure - 119 mmHg. * High thigh: Pressure - unable to be obtained optimally mmHg: PVR waveform - Pulsatile * Low thigh: Pressure - 138 mmHg: Ratio - 1.12 PVR waveform: Pulsatile * Calf: Pressure - 134 mmHg: Ratio - 1.09 PVR waveform: Pulsatile * Posterior tibial Artery: Pressure - 131 mmHg: Ratio - 1.07 PVR waveform: Pulsatile * Dorsalis pedis Artery: Pressure - 124 mmHg: Ratio - 1.01 PVR waveform: Pulsatile Ankle brachial index (JACEK): 1.07 OTHER FINDINGS: Right: Left: IMPRESSION: Right: There was no evidence of hemodynamically significant arterial insufficiency in the right lower extremity. Left: There was no evidence of hemodynamically significant arterial insufficiency in the left lower extremity. Given patient's history, CT angiogram of both lower extremities should be obtained.
[2018-06-10] MEDS: Vancomycin 1 gm/NS 200 ml 1 GM/200 ML BAG IVPB SCH ×2 (00:24→13:33)
--- NOTE | 2018-06-10 00:46 | PN ---
DATE: 06/09/2018 SUBJECTIVE: The patient is still complaining of pain in the right foot and she probably will need surgery for her abscesses. Initially, she was refusing it, but the carding supervisor spoke to her and I also told her she needs surgery. PHYSICAL EXAMINATION: VITAL SIGNS: T-max is 98 today, pulse 62, blood pressure 114/69, respirations are 20. HEENT: Head is atraumatic, normocephalic. NECK: Supple. LUNGS: Clear. HEART: S1 and S2 are regular. ABDOMEN: Soft, nontender. No guarding, no rigidity present. EXTREMITIES: Have bilateral foot ulcers present, and she has had previous surgeries on her right foot. LABORATORY DATA: Labs are noted. Labs show white count is 5.3, hemoglobin 11, hematocrit 33.5, platelet count is 199. BUN is 18, creatinine is 0.7. The vancomycin peak and trough is ordered for tomorrow. MRI was noted. Had abscesses on the right foot. Also has an MRI done for left foot report, so the left one they also say has developing phlegmon collection within the medial at the level of first distal phalanx concerning for cellulitis with possible developing phlegmonous collection, suggestion of some mild increased STIR signals and minimal reactive edema along the medial cortex of the first distal phalanx and no gross T1 abnormality at this level, findings are nonspecific but may be developing acute osteomyelitic changes cannot be ruled out. So, they are talking about the left hallux also having problems. She has a level at Lisfranc ligament which may represent a low-grade sprain. ASSESSMENT AND PLAN: So, it looks like this patient has osteomyelitis of both sides. Her vascular status shows no evidence of deep or superficial this is only for the venous. So, she needs arterial studies also to find out her circulation. We will order vascular studies also and will follow. The patient to continue with IV antibiotics at this time. Microbiology showed polymicrobial yessica, Pseudomonas aeruginosa, Klebsiella and Streptococcus viridans. We will try to see her left foot tomorrow if possible. Left foot also, they are talking about great toe having osteomyelitis. This patient is diabetic and she is a smoker and now with this bilateral foot ulcers. I need to see the left great toe also which they are talking about developing osteomyelitis. Alessia Childs MD [facility] # [id number]
[2018-06-10] MEDS: Meropenem 500 MG in Sodium Chloride 0.9% 100 ML IVPB SCH ×3 (06:01→22:30)
[2018-06-10 07:24] LABS: BASO % 0.7 % (0.0-2.0); EOS # 0.3 K/uL (0.0-0.7); EOS % 4.9 % (0.0-4.0); HEMOGLOBIN 10.7 g/dL (11.0-16.0); LYMPH # 2.1 K/uL (1.0-4.3); LYMPH % 34.1 % (20.0-40.0); MEAN CELL VOLUME 87.8 fL (81.0-99.0); MEAN CORPUSCULAR HEMOGLOBIN 29.4 pg (27.0-31.0); MEAN CORPUSCULAR HGB CONC 33.5 g/dL (33.0-37.0); MEAN PLATELET VOLUME 8.4 fL (7.2-11.7); MONO # 0.6 K/uL (0.0-0.8); MONO % 8.8 % (0.0-10.0); NEUT # 3.2 K/uL (1.8-7.0); NEUT % 51.5 % (50.0-75.0); NRBC % 0.1 % (0.0-2.0); RBC 3.64 Mil/uL (3.80-5.20); RED CELL DISTRIBUTION WIDTH 13.4 % (11.5-14.5); WHITE BLOOD COUNT 6.3 K/uL (4.8-10.8)
[2018-06-10 07:42] LABS: ALB/GLOB RATIO 1.2 (1.0-2.1); ALBUMIN 3.3 g/dL (3.5-5.0); ALT/SGPT 26 U/L (9-52); AST/SGOT 12 U/L (14-36); BLOOD UREA NITROGEN 26 mg/dL (7-17); CALCIUM 9.4 mg/dl (8.6-10.4); GFR NON-AFRICAN AMERICAN > 60
[2018-06-10 07:50] LABS: PROTHROMBIN TIME 11.2 SECONDS (9.7-12.2)
--- NOTE | 2018-06-10 09:20 | CP.PCM.PN ---
Subjective - Date & Time of Evaluation Date of Evaluation: 06/10/18 Time of Evaluation: : - Subjective Subjective: Podiatry Progress note: Dr. Huffman 62 year old female patient was evaluated this morning for right plantar submet head one wound. Patient is AAOx3 and appears in no acute distress. Denies of any acute overnight events. Reports that she has pain in her right foot when she walks but denies of any resting pain. Denies of recent F/N/V/C/SOB/CP/ headache. No other pedal complains at this time. Objective - Vital Signs/Intake and Output Vital Signs (last 24 hours): Temp Pulse Resp BP Pulse Ox 97.5 F L 64 20 123/72 100 06/10/18 08:00 06/10/18 08:00 06/10/18 08:00 06/10/18 08:00 06/10/18 08:00 - Medications Medications: Current Medications Acetaminophen (Tylenol 325mg Tab) 650 mg PO Q6 PRN PRN Reason: Fever >100.4 F Ascorbic Ac/Ferrous Sulf/Folic Acid (Iberet-Folic 500) 1 ter PO DAILY [facility] Last Admin: 06/09/18 11:15 Dose: 1 ter Ascorbic Acid (Vitamin C 500 Mg Tab) 500 mg PO DAILY [facility] Last Admin: 06/09/18 11:21 Dose: 500 mg Gabapentin (Neurontin) 300 mg PO BID [facility] Last Admin: 06/09/18 17:35 Dose: 300 mg Heparin Sodium (Porcine) (Heparin) 5,000 units SC Q8 [facility] Last Admin: 06/10/18 06:04 Dose: 5,000 units Vancomycin/Sodium Chloride (Vancomycin 1 Gm/Ns 200 Ml) 1 gm in 200 mls @ 133.333 mls/hr IVPB Q12H [facility] PRN Reason: Protocol Stop: 06/11/18 13:01 Last Admin: 06/10/18 00:24 Dose: 133.333 mls/hr Meropenem 500 mg/ Sodium (Chloride) 100 mls @ 100 mls/hr IVPB Q8H [facility] PRN Reason: Protocol Last Admin: 06/10/18 06:01 Dose: 100 mls/hr Insulin Human Regular (Novolin R) 0 unit SC ACHS [facility] PRN Reason: Protocol Last Admin: 06/09/18 21:32 Dose: Not Given Lactobacillus Acidophilus (Bacid Acidophilus) 1 cap PO BID [facility] Last Admin: 06/09/18 17:35 Dose: 1 cap Lisinopril (Zestril) 2.5 mg PO DAILY [facility] Last Admin: 06/09/18 11:15 Dose: 2.5 mg Morphine Sulfate (Morphine) 1 mg IVP Q6H PRN PRN Reason: Pain, severe (8-10) Last Admin: 06/08/18 21:27 Dose: 1 mg Nicotine (Nicoderm Cq) 1 patch TD DAILY [facility] Last Admin: 06/09/18 11:14 Dose: 1 patch Paroxetine HCl (Paxil) 20 mg PO DAILY [facility] Last Admin: 06/09/18 11:12 Dose: 20 mg Rosuvastatin Calcium (Crestor) 10 mg PO HS [facility] Last Admin: 06/09/18 21:50 Dose: 10 mg Topiramate (Topamax) 25 mg PO DAILY [facility] Last Admin: 06/09/18 11:12 Dose: 25 mg - Labs Labs: 06/10/18 07:01 06/10/18 07:01 PT 11.2 SECONDS (9.7-12.2) 06/10/18 07:01 INR 1.0 06/10/18 07:01 APTT 32 SECONDS (21-34) D 06/08/18 06:57 - Constitutional Appears: Well, Non-toxic, No Acute Distress - Extremities Exam Additional comments: Lower Extremity Exam VASC: DP and PT 2/4 bilaterally, CFT less than 3 seconds x 9, TG warm to cool from proximal to distal bilaterally, no non-pitting edema noted to the Right foot which has resolved significantly from the time of admission NEURO: diminished protective sensation to bilateral lower extremity DERM: Right Foot- full-thickness 2 cm X 2 cm ulceration present submet 1 of the right foot, fibro-granular base, hyperkeratotic marcela-wound border with hyperpigmentation, +probe to bone, no purulent drainage up on deep palpation, + tracking proximally at 6 'o clock, - malodor, marcela-wound erythema appears to be resolved, ulcer noted to the tip of the 2nd digit, no drainage, no probe to bone Left Foot- pre-ulcerative lesion measuring 3 cm X 4 cm present to submet 1 on the left foot with marcela-wound erythema, hyperkeratotic marcela-wound border with hyperpigmentation, no drainage, no clinical signs of infection to the left foot ORTHO: pain on palpation at the ulceration and diffuse pain on palpation to the right leg and foot, 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 Huffman Labs, vitals and charts reviewed - No leukocytosis; afebrile Foot X-ray 06/05: soft tissue defect plantar submet 1, partial 1st ray amp with osteolytic changes to the stump, periostel changes, no signs of soft tissue emphysema Tib-Fib X-ray 06/05: no signs of soft tissue emphysema MRI- Increase in signal intensity along the shaft of the 1st metatarsal on T2 image consistent with OM Wound Cultures- Pseudomonas Aeruginosa, Klebsiella oxytoca, Strep. viridans Infectious Disease consult- recommendations appreciated - Patient to continue IV Abx as per ID Wound cleansed with betadine/saline flush and dressed with betadine/DSD Educated patient the importance of the surgical wound debridement with drainage of the abscess, Patient agrees with the plan Scheduled for OR Wednesday morning at 7:45 am - Medical optimization - NPO starting Wednesday night - Hold anticoagulants prior to surgery Podiatry will follow patient while in house
[2018-06-10] MEDS: Lactobacillus Acidophilus 500 MU Cap PO SCH ×2 (10:24→18:53)
[2018-06-10] MEDS: Folic Acid/Ascorbic Acid/Ferrous Sulfate 1 Tab PO SCH (10:24)
[2018-06-10] MEDS: (Novolin R) Insulin Human Regular 100 units/ml vial SC SCH ×4 (10:28→21:05)
--- NOTE | 2018-06-10 11:17 | CP.PCM.PN ---
<Allison Gonzalez Y - Last Filed: 06/10/18 11:27> Subjective - Date & Time of Evaluation Date of Evaluation: 06/10/18 Time of Evaluation: 09:10 - Subjective Subjective: PGY-1 Medicine Progress Note for Dr. Gutierrez Patient was seen and examined comfortably sitting in bed eating breakfast with daughter on video chat. Nurse reports no overnight events. Patient has no new complaints. Voices she still wishes to leave [facility] for care with her outpatient grid molder Dr. Teo Benjamin. Explained once more why she is staying over the weekend for antibiotics and I&D on Wednesday, and she understands and daughter agrees. Patient has had no issues voiding, but still states discomfort when walking on bandaged feet. Denies chest pain, shortness of breath, abdominal pain, fever, chills, nausea, vomiting, headache. Objective - Vital Signs/Intake and Output Vital Signs (last 24 hours): Temp Pulse Resp BP Pulse Ox 97.5 F L 64 20 123/72 100 06/10/18 08:00 06/10/18 08:00 06/10/18 08:00 06/10/18 08:00 06/10/18 08:00 - Medications Medications: Current Medications Acetaminophen (Tylenol 325mg Tab) 650 mg PO Q6 PRN PRN Reason: Fever >100.4 F Ascorbic Ac/Ferrous Sulf/Folic Acid (Iberet-Folic 500) 1 ter PO DAILY [facility] Last Admin: 06/10/18 10:24 Dose: 1 ter Ascorbic Acid (Vitamin C 500 Mg Tab) 500 mg PO DAILY [facility] Last Admin: 06/10/18 10:24 Dose: 500 mg Gabapentin (Neurontin) 300 mg PO BID [facility] Heparin Sodium (Porcine) (Heparin) 5,000 units SC Q8 [facility] Last Admin: 06/10/18 06:04 Dose: 5,000 units Vancomycin/Sodium Chloride (Vancomycin 1 Gm/Ns 200 Ml) 1 gm in 200 mls @ 133.333 mls/hr IVPB Q12H [facility] PRN Reason: Protocol Stop: 06/11/18 13:01 Last Admin: 06/10/18 00:24 Dose: 133.333 mls/hr Meropenem 500 mg/ Sodium (Chloride) 100 mls @ 100 mls/hr IVPB Q8H [facility] PRN Reason: Protocol Last Admin: 06/10/18 06:01 Dose: 100 mls/hr Insulin Human Regular (Novolin R) 0 unit SC ACHS [facility] PRN Reason: Protocol Last Admin: 06/10/18 10:28 Dose: 2 units Lactobacillus Acidophilus (Bacid Acidophilus) 1 cap PO BID [facility] Last Admin: 06/10/18 10:24 Dose: 1 cap Lisinopril (Zestril) 2.5 mg PO DAILY [facility] Last Admin: 06/10/18 10:49 Dose: 2.5 mg Morphine Sulfate (Morphine) 1 mg IVP Q6H PRN PRN Reason: Pain, severe (8-10) Last Admin: 06/08/18 21:27 Dose: 1 mg Nicotine (Nicoderm Cq) 1 patch TD DAILY [facility] Last Admin: 06/10/18 10:24 Dose: 1 patch Paroxetine HCl (Paxil) 20 mg PO DAILY [facility] Last Admin: 06/10/18 10:24 Dose: 20 mg Rosuvastatin Calcium (Crestor) 10 mg PO HS [facility] Last Admin: 06/09/18 21:50 Dose: 10 mg Topiramate (Topamax) 25 mg PO DAILY [facility] Last Admin: 06/10/18 10:24 Dose: 25 mg - Labs Labs: 06/10/18 07:01 06/10/18 07:01 PT 11.2 SECONDS (9.7-12.2) 06/10/18 07:01 INR 1.0 06/10/18 07:01 APTT 32 SECONDS (21-34) D 06/08/18 06:57 - Constitutional Appears: Non-toxic, No Acute Distress - Head Exam Head Exam: ATRAUMATIC, NORMOCEPHALIC - Eye Exam Eye Exam: EOMI, Normal appearance - ENT Exam ENT Exam: Mucous Membranes Moist - Respiratory Exam Respiratory Exam: Clear to Ausculation Bilateral, NORMAL BREATHING PATTERN. absent: Rales, Rhonchi, Wheezes - Cardiovascular Exam Cardiovascular Exam: REGULAR RHYTHM, +S1, +S2. absent: Irregular Rhythm, Murmur - GI/Abdominal Exam GI & Abdominal Exam: Soft, Normal Bowel Sounds. absent: Tenderness - Extremities Exam Extremities Exam: Full ROM, Normal Capillary Refill Additional comments: dressings on bilateral feet leaking betadine, c/i. dressings replaced by podiatry daily peripheral pulses palpable bilaterally (radial, PT) PICC line in R arm, in place confirmed by CXR - Neurological Exam Neurological Exam: Alert, Awake, Oriented x3 - Psychiatric Exam Psychiatric exam: Normal Affect, Normal Mood - Skin Skin Exam: Intact, Normal Color Assessment and Plan - Assessment and Plan (Free Text) Assessment: 62 year old female with a past medical history of depression, diabetes, hypertension, and hyperlipidemia admitted for evaluation and treatment of bilateral non-healing diabetic foot ulceration leading to osteomyelitis. Plan: Diabetic Foot Ulcers - ED: Tylenol, Cefazolin, Vancomycin x2, Toradol, Fluid Bolus. 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 1.8cm abscess laterally adjacent to 1st metatarsal head. Acute osteomyelitis within the 1st metatarsal, and at 2nd proximal phalanx. Mild fraying consistent with low grade sprained ankle or partial tear. Prominent degen changes in the midfoot with bony spurring and osteochondral changes - MRI L LE (06/07): cellulitis, early osteomyelitis at 1st distal phalanx. Milder reticulation, possible cellulitis at the 2nd digit. Osteochondral changes. Low grade sprained ankle or partial tear. - wound Cx (06/05): Pseudomonas Aerugenousa, Klebsiella Oxytoca, both sensitive to Merrem. Streptococcus Viridans, awaiting sensitivities; empirically covered by vanc - blood Cx (06/05) negative at 72 hours. PICC/midline placement for assisted abx for osteomyelitis conset obtained - CXR (06/09): negative for acute pathology, PICC line in place - EKG ordered, not taken - Podiatry consulted: Dr. Nathanael pereira appreciated - wound cleansed with betadine/saline flush; redressed with betadine/DSD - scheduled for I&D on 06/13 @ 7:45am - will continue to follow - ID consulted: Dr. Amadeo pereira appreciated - cont IV abx - will continue to follow - Vancomycin 1gm IVPB q12 (started 06/05) - vanc trough (06/09) 14.1, will keep same dosing - Next vanc troph 06/10 @12:30PM - Zosyn 3.375gm IVPB q6 (06/06-06/07) stopped d/t poor sensitivity - Merrem 500mg IVPB q8 (started 06/07) - Morphine 1mg IVP q6 prn - Vitamin C 500mg po daily Sepsis - Fever: Tmax - 06/05 @ 2024: 101.3F, WBC 11.6, HR 108 - foot ulceration as likely source - VBG lactate: 3.2 -> 1.0 - CXR (06/05): mild venous congestion; negative for acute disease process - urine Cx (06/05): negative - blood Cx (06/05): negative @ 72 hours - abx as above: Vancomycin and Merrem - Tylenol 650mg po q6 prn for fever > 100.4F Right Lower Ext. Swelling - US RLE venous Doppler (06/06): negative - US RLE arterial Doppler: negative, pending official read. JACEK R 1.12, JACEK L 1.07. - continue to monitor swelling Hyperlipidemia - home Simvastatin 40mg -> Crestor 10mg po HS Diabetes w/ neuropathy - Hold Home meds - ISS ACHS - currently well controlled on ISS without basal insulin - Gabapentin 300mg po bid - Lisinopril 2.5mg po daily Psych Disorders: - home Paxil 20mg po daily - home Topiramate 25mg po daily Constipation - Colace 100 mg po TID Tobacco use - Nicotine 7mg/24hr 1 patch TD daily - counseled on cessation PPx - DVT: Heparin 5000u sc q8, SCDs CI d/t LE swelling - GI: not indicated at this time, Bacid - Diabetic Diet Dispo: Patient scheduled for I&D on 06/13 at 7:45 with podiatry as patient agreed to have procedure while in hospital. She will be place NPO at midnight Wednesday into Wednesday. Pending Celine MONTEJO following procedure. d/w Dr. Matt Gonzalez PGY-1 <Serafin Gutierrez - Last Filed: 06/10/18 20:11> Objective - Vital Signs/Intake and Output Vital Signs (last 24 hours): Temp Pulse Resp BP Pulse Ox 98.1 F 62 20 114/77 100 06/10/18 16:00 06/10/18 16:00 06/10/18 16:00 06/10/18 16:00 06/10/18 16:00 - Medications Medications: Current Medications Acetaminophen (Tylenol 325mg Tab) 650 mg PO Q6 PRN PRN Reason: Fever >100.4 F Ascorbic Ac/Ferrous Sulf/Folic Acid (Iberet-Folic 500) 1 ter PO DAILY [facility] Last Admin: 06/10/18 10:24 Dose: 1 ter Ascorbic Acid (Vitamin C 500 Mg Tab) 500 mg PO DAILY [facility] Last Admin: 06/10/18 10:24 Dose: 500 mg Gabapentin (Neurontin) 300 mg PO BID [facility] Last Admin: 06/10/18 18:53 Dose: 300 mg Heparin Sodium (Porcine) (Heparin) 5,000 units SC Q8 [facility] Last Admin: 06/10/18 13:36 Dose: 5,000 units Vancomycin/Sodium Chloride (Vancomycin 1 Gm/Ns 200 Ml) 1 gm in 200 mls @ 133.333 mls/hr IVPB Q12H [facility] PRN Reason: Protocol Stop: 06/11/18 13:01 Last Admin: 06/10/18 13:33 Dose: 133.333 mls/hr Meropenem 500 mg/ Sodium (Chloride) 100 mls @ 100 mls/hr IVPB Q8H [facility] PRN Reason: Protocol Last Admin: 06/10/18 16:12 Dose: 100 mls/hr Insulin Human Regular (Novolin R) 0 unit SC ACHS [facility] PRN Reason: Protocol Last Admin: 06/10/18 18:54 Dose: Not Given Lactobacillus Acidophilus (Bacid Acidophilus) 1 cap PO BID [facility] Last Admin: 06/10/18 18:53 Dose: 1 cap Lisinopril (Zestril) 2.5 mg PO DAILY [facility] Last Admin: 06/10/18 10:49 Dose: 2.5 mg Morphine Sulfate (Morphine) 1 mg IVP Q6H PRN PRN Reason: Pain, severe (8-10) Last Admin: 06/10/18 12:33 Dose: 1 mg Nicotine (Nicoderm Cq) 1 patch TD DAILY [facility] Last Admin: 06/10/18 10:24 Dose: 1 patch Paroxetine HCl (Paxil) 20 mg PO DAILY [facility] Last Admin: 06/10/18 10:24 Dose: 20 mg Rosuvastatin Calcium (Crestor) 10 mg PO HS [facility] Last Admin: 06/09/18 21:50 Dose: 10 mg Topiramate (Topamax) 25 mg PO DAILY [facility] Last Admin: 06/10/18 10:24 Dose: 25 mg - Labs Labs: 06/10/18 07:01 06/10/18 07:01 PT 11.2 SECONDS (9.7-12.2) 06/10/18 07:01 INR 1.0 06/10/18 07:01 APTT 32 SECONDS (21-34) D 06/08/18 06:57 Attending/Attestation - Attestation I have personally seen and examined this patient.: Yes I have fully participated in the care of the patient.: Yes I have reviewed all pertinent clinical information, including history, physical exam and plan: Yes Notes (Text): 06/10/18 19:56 Patient was seen and examined at 1:45 PM 06/10/18 Bed 560 A Care of this patient was gone over with the resident Upon FULL ROS: She complains of vaginal itching: "this happens to me whenever I come to the hospital and start taking antibiotics" There has been no vaginal discharge Otherwise no other complaints upon full ROS Assessments: 1). Bilateral Diabetic Foot Ulcers with Osteomyelitis and Developing Abscesses: Wound culture from the Right Toe #1 pedal surface shows Psuedomonas/Klebsiella/ Strep viridans. She is on Meropenem, Vancomycin. F/U Vanco Troughs with goal 15 to 20 2). Right Leg Edema: Venous Doppler Leg negative for DVT 3). Hx DM 2 requiring Insulin: ISS ACHS 4). Hx HLD: Crestor 5). Hx Diabetic Neuropathy: Gabapentin, Topamax 6). Hx Depression: Paroxitine 7). Hx HTN: Zestril 8). Hx Nicotine Addiction: Nicoderm Patch 9). Vaginal Itching: Diflucan x 1 dose 06/10/18 and if still itching by Wednesday hopefully she will allow vaginal exam by female physician She was given 1 time dose of Diflucan for the Vaginal itching. Patient would not allow me to perform vaginal exam. Explained to her that that we will treat with the Diflucan and should the itching still be present by Wednesday she should allow one of our female physicians examine the area. She is for I&D with the Podiatry Team on 06/13/18 and should be NPO after midnight 06/12/14 and HOLD the Heparin at 10 PM on 06/12/18. Please make sure with the Podiatry Team that they are also aware of the developing abscess also on the Left Foot as per the MRI of Left Foot. She has been medically optimized for the procedure on 06/13/18 F/U finalization of Blood Culture 06/05/18 which is negative at 4 days Right Arm PICC Line placed on 06/09/18 She will need at least 6 weeks of IV antibiotics Patient would like to go to [facility] and medicine team should arrange this with coordination with Application Tester Follow up with ID Dr. Patel for antibiotic selection with the least amount of frequency Serafin Gutierrez D.O.
--- NOTE | 2018-06-10 21:01 | CP.PCM.PN ---
Subjective - Date & Time of Evaluation Date of Evaluation: 06/10/18 Time of Evaluation: 15:50 - Subjective Subjective: dictated Objective - Vital Signs/Intake and Output Vital Signs (last 24 hours): Temp Pulse Resp BP Pulse Ox 98.1 F 62 20 114/77 100 06/10/18 16:00 06/10/18 16:00 06/10/18 16:00 06/10/18 16:00 06/10/18 16:00 - Medications Medications: Current Medications Acetaminophen (Tylenol 325mg Tab) 650 mg PO Q6 PRN PRN Reason: Fever >100.4 F Ascorbic Ac/Ferrous Sulf/Folic Acid (Iberet-Folic 500) 1 ter PO DAILY [facility] Last Admin: 06/10/18 10:24 Dose: 1 ter Ascorbic Acid (Vitamin C 500 Mg Tab) 500 mg PO DAILY [facility] Last Admin: 06/10/18 10:24 Dose: 500 mg Gabapentin (Neurontin) 300 mg PO BID [facility] Last Admin: 06/10/18 18:53 Dose: 300 mg Heparin Sodium (Porcine) (Heparin) 5,000 units SC Q8 [facility] Last Admin: 06/10/18 13:36 Dose: 5,000 units Vancomycin/Sodium Chloride (Vancomycin 1 Gm/Ns 200 Ml) 1 gm in 200 mls @ 133.333 mls/hr IVPB Q12H [facility] PRN Reason: Protocol Stop: 06/11/18 13:01 Last Admin: 06/10/18 13:33 Dose: 133.333 mls/hr Meropenem 500 mg/ Sodium (Chloride) 100 mls @ 100 mls/hr IVPB Q8H [facility] PRN Reason: Protocol Last Admin: 06/10/18 16:12 Dose: 100 mls/hr Insulin Human Regular (Novolin R) 0 unit SC ACHS [facility] PRN Reason: Protocol Last Admin: 06/10/18 18:54 Dose: Not Given Lactobacillus Acidophilus (Bacid Acidophilus) 1 cap PO BID [facility] Last Admin: 06/10/18 18:53 Dose: 1 cap Lisinopril (Zestril) 2.5 mg PO DAILY [facility] Last Admin: 06/10/18 10:49 Dose: 2.5 mg Morphine Sulfate (Morphine) 1 mg IVP Q6H PRN PRN Reason: Pain, severe (8-10) Last Admin: 06/10/18 12:33 Dose: 1 mg Nicotine (Nicoderm Cq) 1 patch TD DAILY [facility] Last Admin: 06/10/18 10:24 Dose: 1 patch Paroxetine HCl (Paxil) 20 mg PO DAILY [facility] Last Admin: 06/10/18 10:24 Dose: 20 mg Rosuvastatin Calcium (Crestor) 10 mg PO HS [facility] Last Admin: 06/09/18 21:50 Dose: 10 mg Topiramate (Topamax) 25 mg PO DAILY [facility] Last Admin: 06/10/18 10:24 Dose: 25 mg - Labs Labs: 06/10/18 07:01 06/10/18 07:01 PT 11.2 SECONDS (9.7-12.2) 06/10/18 07:01 INR 1.0 06/10/18 07:01 APTT 32 SECONDS (21-34) D 06/08/18 06:57
[2018-06-11] MEDS: Vancomycin 1 gm/NS 200 ml 1 GM/200 ML BAG IVPB SCH ×2 (01:18→12:24)
--- NOTE | 2018-06-11 02:08 | PN ---
DATE: 06/10/2018 SUBJECTIVE: The patient was seen today. She said she ambulated a little bit, and she developed blood on her bandage, and she had dressing which was blood stained, and she said that dressing was changed this morning by the manager aerospace, otherwise; and she says off and on she gets pain, otherwise, she denied any nausea, vomiting, any diarrhea. She understands, she is for OR. She has a PICC line. OBJECTIVE: VITAL SIGNS: T-max is 98.1, pulse 62, blood pressure of 114/77, respirations are 20. HEENT: Head is atraumatic, normocephalic. NECK: Supple. LUNGS: Clear. No crackles or rales present. HEART: S1, S2 regular. ABDOMEN: Soft, flabby, nontender. She is obese. EXTREMITIES: Both feet have dressings at this time. Labs are noted. Labs show white count is 6.3, hemoglobin 10.7, hematocrit 31.9, platelet count is 206. Her BUN is 26, creatinine 0.8. Vancomycin, we have done a trough that was 13.1 today which is acceptable for now, and she is on vancomycin and meropenem. We will continue the same. However, her wound had Strep viridans Klebsiella and Pseudomonas. Urine culture is negative, and she has osteomyelitis and is status post partial amputation of couple of toes in the right foot, and now will be having surgery on Wednesday. To continue IV antibiotics at this time. Alessia Childs MD
--- NOTE | 2018-06-11 03:20 | CP.PCM.PN ---
<Dontae Mann - Last Filed: 06/11/18 08:15> Subjective - Date & Time of Evaluation Date of Evaluation: 06/11/18 Time of Evaluation: 03:18 - Subjective Subjective: PGY-1 Medicine Progress Note for Dr. Lubin Patient was seen and examined at bedside, resting comfortably and in no acute distress.Patient has no new complaints. Continues to deny voiding issues but still has discomfort when walking on bandaged feet. No fevers/chills, headaches, chest pain, shortness of breath, abdominal pain, nausea/vomiting/diarrhea. Objective - Vital Signs/Intake and Output Vital Signs (last 24 hours): Temp Pulse Resp BP Pulse Ox 97.8 F 63 20 119/64 99 06/10/18 23:40 06/10/18 23:40 06/10/18 23:40 06/10/18 23:40 06/10/18 23:40 - Medications Medications: Current Medications Acetaminophen (Tylenol 325mg Tab) 650 mg PO Q6 PRN PRN Reason: Fever >100.4 F Ascorbic Ac/Ferrous Sulf/Folic Acid (Iberet-Folic 500) 1 ter PO DAILY [facility] Last Admin: 06/10/18 10:24 Dose: 1 ter Ascorbic Acid (Vitamin C 500 Mg Tab) 500 mg PO DAILY [facility] Last Admin: 06/10/18 10:24 Dose: 500 mg Gabapentin (Neurontin) 300 mg PO BID [facility] Last Admin: 06/10/18 18:53 Dose: 300 mg Heparin Sodium (Porcine) (Heparin) 5,000 units SC Q8 [facility] Last Admin: 06/10/18 22:41 Dose: 5,000 units Vancomycin/Sodium Chloride (Vancomycin 1 Gm/Ns 200 Ml) 1 gm in 200 mls @ 133.333 mls/hr IVPB Q12H [facility] PRN Reason: Protocol Stop: 06/11/18 13:01 Last Admin: 06/11/18 01:18 Dose: 133.333 mls/hr Meropenem 500 mg/ Sodium (Chloride) 100 mls @ 100 mls/hr IVPB Q8H [facility] PRN Reason: Protocol Last Admin: 06/10/18 22:30 Dose: 100 mls/hr Insulin Human Regular (Novolin R) 0 unit SC ACHS [facility] PRN Reason: Protocol Last Admin: 06/10/18 21:05 Dose: Not Given Lactobacillus Acidophilus (Bacid Acidophilus) 1 cap PO BID [facility] Last Admin: 06/10/18 18:53 Dose: 1 cap Lisinopril (Zestril) 2.5 mg PO DAILY [facility] Last Admin: 06/10/18 10:49 Dose: 2.5 mg Morphine Sulfate (Morphine) 1 mg IVP Q6H PRN PRN Reason: Pain, severe (8-10) Last Admin: 06/11/18 01:17 Dose: 1 mg Nicotine (Nicoderm Cq) 1 patch TD DAILY [facility] Last Admin: 06/10/18 10:24 Dose: 1 patch Paroxetine HCl (Paxil) 20 mg PO DAILY [facility] Last Admin: 06/10/18 10:24 Dose: 20 mg Rosuvastatin Calcium (Crestor) 10 mg PO HS [facility] Last Admin: 06/10/18 22:29 Dose: 10 mg Topiramate (Topamax) 25 mg PO DAILY [facility] Last Admin: 06/10/18 10:24 Dose: 25 mg - Labs Labs: 06/10/18 07:01 06/10/18 07:01 PT 11.2 SECONDS (9.7-12.2) 06/10/18 07:01 INR 1.0 06/10/18 07:01 APTT 32 SECONDS (21-34) D 06/08/18 06:57 - Constitutional Appears: Non-toxic, No Acute Distress - Head Exam Head Exam: ATRAUMATIC, NORMAL INSPECTION, NORMOCEPHALIC - Eye Exam Eye Exam: EOMI, Normal appearance Pupil Exam: NORMAL ACCOMODATION - ENT Exam ENT Exam: Mucous Membranes Moist, Normal Exam - Neck Exam Neck Exam: Full ROM, Normal Inspection - Respiratory Exam Respiratory Exam: Clear to Ausculation Bilateral, NORMAL BREATHING PATTERN. absent: Rales, Rhonchi, Wheezes, Respiratory Distress - Cardiovascular Exam Cardiovascular Exam: REGULAR RHYTHM, +S1, +S2 - GI/Abdominal Exam GI & Abdominal Exam: Soft, Normal Bowel Sounds. absent: Distended, Firm, Guarding, Rigid, Tenderness, Mass, Organomegaly, Rebound - Extremities Exam Extremities Exam: Full ROM, Normal Capillary Refill Additional comments: dressings on bilateral feet leaking betadine, c/i. dressings replaced by podiatry daily peripheral pulses palpable bilaterally (radial, PT) PICC line in R arm, in place confirmed by CXR - Back Exam Back Exam: NORMAL INSPECTION - Neurological Exam Neurological Exam: Alert, Awake, Oriented x3 - Psychiatric Exam Psychiatric exam: Normal Affect, Normal Mood - Skin Skin Exam: Intact, Normal Color Assessment and Plan - Assessment and Plan (Free Text) Assessment: 62 year old female with a past medical history of depression, diabetes, hypertension, and hyperlipidemia admitted for evaluation and treatment of bilateral non-healing diabetic foot ulceration leading to osteomyelitis. Plan: Diabetic Foot Ulcers - ED: Tylenol, Cefazolin, Vancomycin x2, Toradol, Fluid Bolus. 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 1.8cm abscess laterally adjacent to 1st metatarsal head. Acute osteomyelitis within the 1st metatarsal, and at 2nd proximal phalanx. Mild fraying consistent with low grade sprained ankle or partial tear. Prominent degen changes in the midfoot with bony spurring and osteochondral changes - MRI L LE (06/07): cellulitis, early osteomyelitis at 1st distal phalanx. Milder reticulation, possible cellulitis at the 2nd digit. Osteochondral changes. Low grade sprained ankle or partial tear. - wound Cx (06/05): Pseudomonas Aerugenousa, Klebsiella Oxytoca, both sensitive to Merrem. Streptococcus Viridans, awaiting sensitivities; empirically covered by vanc - blood Cx (06/05) negative at 72 hours. PICC/midline placement for halfway abx for osteomyelitis conset obtained - CXR (06/09): negative for acute pathology, PICC line in place - EKG ordered, not taken - Podiatry consulted: Dr. Nathaneal pereira appreciated - wound cleansed with betadine/saline flush; redressed with betadine/DSD - scheduled for I&D on 06/13 @ 7:45am - will continue to follow - ID consulted: Dr. Amadeo pereira appreciated - cont IV abx - will continue to follow - Vancomycin 1gm IVPB q12 (started 06/05) - vanc trough (06/09) 14.1, will keep same dosing - Next vanc troph 06/10 @12:30PM - Zosyn 3.375gm IVPB q6 (06/06-06/07) stopped d/t poor sensitivity - Merrem 500mg IVPB q8 (started 06/07) - Morphine 1mg IVP q6 prn - Vitamin C 500mg po daily Sepsis - Fever: Tmax - 06/05 @ 2024: 101.3F, WBC 11.6, HR 108 - foot ulceration as likely source - VBG lactate: 3.2 -> 1.0 - CXR (06/05): mild venous congestion; negative for acute disease process - urine Cx (06/05): negative - blood Cx (06/05): negative @ 72 hours - abx as above: Vancomycin and Merrem - Tylenol 650mg po q6 prn for fever > 100.4F Right Lower Ext. Swelling - US RLE venous Doppler (06/06): negative - US RLE arterial Doppler: negative, pending official read. JACEK R 1.12, JACEK L 1.07. - continue to monitor swelling Hyperlipidemia - home Simvastatin 40mg -> Crestor 10mg po HS Diabetes w/ neuropathy - Hold Home meds - ISS ACHS - currently well controlled on ISS without basal insulin - Gabapentin 300mg po bid - Lisinopril 2.5mg po daily Psych Disorders: - home Paxil 20mg po daily - home Topiramate 25mg po daily Constipation - Colace 100 mg po TID Tobacco use - Nicotine 7mg/24hr 1 patch TD daily - counseled on cessation PPx, Diet, Disposition - DVT: Heparin 5000u sc q8, SCDs CI d/t LE swelling - GI: not indicated at this time, Bacid - Diabetic Diet - Dispo: Patient scheduled for I&D on 06/13 at 7:45 with podiatry as patient agreed to have procedure while in hospital. She will be place NPO at midnight Wednesday into Wednesday. Pending Celine MONTEJO following procedure. Case to be discussed with Dr. Amee Mann DO, PGY-1 <Arlin Lubin - Last Filed: 06/17/18 16:48> Objective - Vital Signs/Intake and Output Vital Signs (last 24 hours): Temp Pulse Resp BP Pulse Ox 98.9 F 66 18 108/72 100 06/11/18 16:29 06/11/18 16:29 06/11/18 16:29 06/11/18 16:29 06/11/18 16:29 - Medications Medications: Current Medications Acetaminophen (Tylenol 325mg Tab) 650 mg PO Q6 PRN PRN Reason: Fever >100.4 F Ascorbic Ac/Ferrous Sulf/Folic Acid (Iberet-Folic 500) 1 ter PO DAILY [facility] Last Admin: 06/11/18 09:58 Dose: 1 ter Ascorbic Acid (Vitamin C 500 Mg Tab) 500 mg PO DAILY [facility] Last Admin: 06/11/18 09:58 Dose: 500 mg Gabapentin (Neurontin) 300 mg PO BID [facility] Last Admin: 06/11/18 17:31 Dose: 300 mg Heparin Sodium (Porcine) (Heparin) 5,000 units SC Q8 [facility] Last Admin: 06/11/18 13:52 Dose: 5,000 units Meropenem 500 mg/ Sodium (Chloride) 100 mls @ 100 mls/hr IVPB Q8H [facility] PRN Reason: Protocol Last Admin: 06/11/18 13:53 Dose: 100 mls/hr Vancomycin/Sodium Chloride (Vancomycin 1 Gm/Ns 200 Ml) 1 gm in 200 mls @ 166.6 mls/hr IVPB Q12H [facility] PRN Reason: Protocol Stop: 06/17/18 01:01 Insulin Human Regular (Novolin R) 0 unit SC ACHS [facility] PRN Reason: Protocol Last Admin: 06/11/18 17:30 Dose: 2 units Lactobacillus Acidophilus (Bacid Acidophilus) 1 cap PO BID [facility] Last Admin: 06/11/18 17:31 Dose: 1 cap Lisinopril (Zestril) 2.5 mg PO DAILY [facility] Last Admin: 06/11/18 09:58 Dose: 2.5 mg Morphine Sulfate (Morphine) 1 mg IVP Q6H PRN PRN Reason: Pain, severe (8-10) Last Admin: 06/11/18 01:17 Dose: 1 mg Nicotine (Nicoderm Cq) 1 patch TD DAILY [facility] Last Admin: 06/11/18 09:58 Dose: 1 patch Paroxetine HCl (Paxil) 20 mg PO DAILY [facility] Last Admin: 06/11/18 09:58 Dose: 20 mg Rosuvastatin Calcium (Crestor) 10 mg PO [facility] Last Admin: 06/10/18 22:29 Dose: 10 mg Topiramate (Topamax) 25 mg PO DAILY [facility] Last Admin: 06/11/18 09:58 Dose: 25 mg - Labs Labs: 06/11/18 08:25 06/11/18 08:25 PT 11.2 SECONDS (9.7-12.2) 06/10/18 07:01 INR 1.0 06/10/18 07:01 APTT 32 SECONDS (21-34) D 06/08/18 06:57 Attending/Attestation - Attestation I have personally seen and examined this patient.: Yes I have fully participated in the care of the patient.: Yes I have reviewed all pertinent clinical information, including history, physical exam and plan: Yes Notes (Text): Seen and examined with the resident. Assessment and the plan discussed with the resident I agree with the documentation
[2018-06-11] MEDS: Meropenem 500 MG in Sodium Chloride 0.9% 100 ML IVPB SCH ×3 (06:37→21:32)
[2018-06-11 08:35] LABS: BASO # 0.1 K/uL (0.0-0.2); BASO % 0.9 % (0.0-2.0); EOS # 0.3 K/uL (0.0-0.7); EOS % 5.1 % (0.0-4.0); LYMPH % 31.3 % (20.0-40.0); MEAN CELL VOLUME 88.2 fL (81.0-99.0); MEAN CORPUSCULAR HEMOGLOBIN 29.6 pg (27.0-31.0); MEAN CORPUSCULAR HGB CONC 33.5 g/dL (33.0-37.0); MEAN PLATELET VOLUME 8.2 fL (7.2-11.7); MONO # 0.6 K/uL (0.0-0.8); NEUT # 3.4 K/uL (1.8-7.0); NEUT % 53.7 % (50.0-75.0); NRBC % 0.1 % (0.0-2.0); RBC 3.71 Mil/uL (3.80-5.20); RED CELL DISTRIBUTION WIDTH 13.4 % (11.5-14.5); WHITE BLOOD COUNT 6.3 K/uL (4.8-10.8)
[2018-06-11] MEDS: (Novolin R) Insulin Human Regular 100 units/ml vial SC SCH ×4 (08:37→21:43)
[2018-06-11 08:53] LABS: ALB/GLOB RATIO 1.2 (1.0-2.1); ALBUMIN 3.5 g/dL (3.5-5.0); ALT/SGPT 30 U/L (9-52); AST/SGOT 18 U/L (14-36); BLOOD UREA NITROGEN 19 mg/dL (7-17); CALCIUM 9.9 mg/dl (8.6-10.4); GFR NON-AFRICAN AMERICAN > 60
[2018-06-11] MEDS: Folic Acid/Ascorbic Acid/Ferrous Sulfate 1 Tab PO SCH (09:58)
[2018-06-11] MEDS: Lactobacillus Acidophilus 500 MU Cap PO SCH ×2 (09:58→17:31)
--- NOTE | 2018-06-11 13:34 | CP.PCM.PN ---
Subjective - Date & Time of Evaluation Date of Evaluation: 06/11/18 Time of Evaluation: 10:40 - Subjective Subjective: Podiatry Progress note: Dr. Huffman 62F evaluated for right plantar submet head one wound. Patient is AAOx3 and appears in no acute distress. Denies of any acute overnight events. Patient reports that she was walking in surgical shoe yesterday when noticed bleeding to her dressing. Patient reports pain with walking. At rest, denies of pain. Denies of recent F/N/V/C/SOB/CP/headache. Objective - Vital Signs/Intake and Output Vital Signs (last 24 hours): Temp Pulse Resp BP Pulse Ox 97.2 F L 63 20 111/69 100 06/11/18 07:11 06/11/18 07:11 06/11/18 07:11 06/11/18 07:11 06/11/18 07:11 - Medications Medications: Current Medications Acetaminophen (Tylenol 325mg Tab) 650 mg PO Q6 PRN PRN Reason: Fever >100.4 F Ascorbic Ac/Ferrous Sulf/Folic Acid (Iberet-Folic 500) 1 ter PO DAILY [facility] Last Admin: 06/11/18 09:58 Dose: 1 ter Ascorbic Acid (Vitamin C 500 Mg Tab) 500 mg PO DAILY [facility] Last Admin: 06/11/18 09:58 Dose: 500 mg Gabapentin (Neurontin) 300 mg PO BID [facility] Last Admin: 06/11/18 09:58 Dose: 300 mg Heparin Sodium (Porcine) (Heparin) 5,000 units SC Q8 [facility] Last Admin: 06/11/18 06:38 Dose: Not Given Meropenem 500 mg/ Sodium (Chloride) 100 mls @ 100 mls/hr IVPB Q8H [facility] PRN Reason: Protocol Last Admin: 06/11/18 06:37 Dose: 100 mls/hr Insulin Human Regular (Novolin R) 0 unit SC ACHS [facility] PRN Reason: Protocol Last Admin: 06/11/18 12:26 Dose: 2 units Lactobacillus Acidophilus (Bacid Acidophilus) 1 cap PO BID [facility] Last Admin: 06/11/18 09:58 Dose: 1 cap Lisinopril (Zestril) 2.5 mg PO DAILY [facility] Last Admin: 06/11/18 09:58 Dose: 2.5 mg Morphine Sulfate (Morphine) 1 mg IVP Q6H PRN PRN Reason: Pain, severe (8-10) Last Admin: 06/11/18 01:17 Dose: 1 mg Nicotine (Nicoderm Cq) 1 patch TD DAILY [facility] Last Admin: 06/11/18 09:58 Dose: 1 patch Paroxetine HCl (Paxil) 20 mg PO DAILY [facility] Last Admin: 06/11/18 09:58 Dose: 20 mg Rosuvastatin Calcium (Crestor) 10 mg PO HS [facility] Last Admin: 06/10/18 22:29 Dose: 10 mg Topiramate (Topamax) 25 mg PO DAILY [facility] Last Admin: 06/11/18 09:58 Dose: 25 mg - Labs Labs: 06/11/18 08:25 06/11/18 08:25 PT 11.2 SECONDS (9.7-12.2) 06/10/18 07:01 INR 1.0 06/10/18 07:01 APTT 32 SECONDS (21-34) D 06/08/18 06:57 - Constitutional Appears: Well, Non-toxic, No Acute Distress - Extremities Exam Extremities Exam: absent: Calf Tenderness Additional comments: VASC: DP and PT 2/4 bilaterally, CFT less than 3 seconds x 9, TG warm to warm to the right lower extremity in comparison to the LLE, non-pitting edema noted to the Right foot at the site of the ulceration NEURO: diminished protective sensation to bilateral lower extremity DERM: Right Foot- full-thickness 2 cm X 2 cm ulceration present submet 1 of the right foot, fibro-granular base, hyperkeratotic marcela-wound border with hyperpigmentation, +probe to bone, + minimal purulent drainage, + tracking proximally at 6 'o clock, + malodor, + marcela-wound erythema, ulcer noted to the tip of the 2nd digit measuring approximately .5cm x .5cm x .1 cm, mild sangious drainaged, no probe to bone, no odor, no clinical sign of infection to the 2nd digit Left Foot- pre-ulcerative lesion measuring 3 cm X 4 cm present to submet 1 on the left foot with marcela-wound erythema, hyperkeratotic marcela-wound border with hyperpigmentation, no drainage, no clinical signs of infection to the left foot ORTHO: pain on palpation at the ulceration and diffuse pain on palpation to the right leg and foot, 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 nonhealing R sub-metatarsal head 1 ulceration (Garcia 3) with abscess and osteomyelitis (+) 2. 2nd digit tip ulceration with osteomyelitis (+ ) 3. L foot preulcerative lesion sub-metatarsal 1 Plan: Patient seen and evaluated Plan discussed with attending Dr. Huffman Labs, vitals and charts reviewed - No leukocytosis; afebrile Foot X-ray 06/05: soft tissue defect plantar submet 1, partial 1st ray amp with osteolytic changes to the stump, periostel changes, no signs of soft tissue emphysema Tib-Fib X-ray 06/05: no signs of soft tissue emphysema MRI- Increase in signal intensity along the shaft of the 1st metatarsal on T2 image consistent with OM Wound Cultures- Pseudomonas Aeruginosa, Klebsiella oxytoca, Strep. viridans Infectious Disease consult- recommendations appreciated - Patient to continue IV Abx as per ID Wound cleansed with betadine/saline flush and dressed with betadine/DSD Educated patient the importance of the surgical wound debridement with drainage of the abscess, Patient agrees with the plan Scheduled for OR Wednesday morning at 7:45 am - Medical optimization - NPO starting Wednesday night - Hold anticoagulants prior to surgery Podiatry will follow patient while in house
--- NOTE | 2018-06-11 18:45 | CP.PCM.PN ---
Subjective - Date & Time of Evaluation Date of Evaluation: 06/11/18 Time of Evaluation: 15:40 - Subjective Subjective: DICTATED Objective - Vital Signs/Intake and Output Vital Signs (last 24 hours): Temp Pulse Resp BP Pulse Ox 98.9 F 66 18 108/72 100 06/11/18 16:29 06/11/18 16:29 06/11/18 16:29 06/11/18 16:29 06/11/18 16:29 - Medications Medications: Current Medications Acetaminophen (Tylenol 325mg Tab) 650 mg PO Q6 PRN PRN Reason: Fever >100.4 F Ascorbic Ac/Ferrous Sulf/Folic Acid (Iberet-Folic 500) 1 ter PO DAILY [facility] Last Admin: 06/11/18 09:58 Dose: 1 ter Ascorbic Acid (Vitamin C 500 Mg Tab) 500 mg PO DAILY [facility] Last Admin: 06/11/18 09:58 Dose: 500 mg Gabapentin (Neurontin) 300 mg PO BID [facility] Last Admin: 06/11/18 17:31 Dose: 300 mg Heparin Sodium (Porcine) (Heparin) 5,000 units SC Q8 [facility] Last Admin: 06/11/18 13:52 Dose: 5,000 units Meropenem 500 mg/ Sodium (Chloride) 100 mls @ 100 mls/hr IVPB Q8H [facility] PRN Reason: Protocol Last Admin: 06/11/18 13:53 Dose: 100 mls/hr Vancomycin/Sodium Chloride (Vancomycin 1 Gm/Ns 200 Ml) 1 gm in 200 mls @ 166.6 mls/hr IVPB Q12H [facility] PRN Reason: Protocol Stop: 06/17/18 01:01 Insulin Human Regular (Novolin R) 0 unit SC ACHS [facility] PRN Reason: Protocol Last Admin: 06/11/18 17:30 Dose: 2 units Lactobacillus Acidophilus (Bacid Acidophilus) 1 cap PO BID [facility] Last Admin: 06/11/18 17:31 Dose: 1 cap Lisinopril (Zestril) 2.5 mg PO DAILY [facility] Last Admin: 06/11/18 09:58 Dose: 2.5 mg Morphine Sulfate (Morphine) 1 mg IVP Q6H PRN PRN Reason: Pain, severe (8-10) Last Admin: 06/11/18 01:17 Dose: 1 mg Nicotine (Nicoderm Cq) 1 patch TD DAILY [facility] Last Admin: 06/11/18 09:58 Dose: 1 patch Paroxetine HCl (Paxil) 20 mg PO DAILY [facility] Last Admin: 06/11/18 09:58 Dose: 20 mg Rosuvastatin Calcium (Crestor) 10 mg PO HS [facility] Last Admin: 06/10/18 22:29 Dose: 10 mg Topiramate (Topamax) 25 mg PO DAILY [facility] Last Admin: 06/11/18 09:58 Dose: 25 mg - Labs Labs: 06/11/18 08:25 06/11/18 08:25 PT 11.2 SECONDS (9.7-12.2) 06/10/18 07:01 INR 1.0 06/10/18 07:01 APTT 32 SECONDS (21-34) D 06/08/18 06:57
--- NOTE | 2018-06-11 21:35 | PN ---
DATE: 06/11/2018 SUBJECTIVE: She continues to have pain in the foot. She had a dressing done today and noted to have a clean dressing today. Her whole family was at the bedside and they were saying that she does not take care of herself and does not follow her diet, and she smokes and although negatives and we went through, the patient that it was important that her sugars are controlled, otherwise this infection is not getting better. She did notice that thing was bleeding from the top of the second toe on the right foot, which probably has the abscesses and needs drainage, and she will be going to OR. PHYSICAL EXAMINATION: VITAL SIGNS: T-max is 98.9, pulse 66, blood pressure is 108/72, respirations are 18. HEENT: Head is atraumatic. NECK: Supple. LUNGS: Clear. No crackles or rales present. HEART: S1, S2 regular. ABDOMEN: Soft, nontender. No guarding. No rigidity present. EXTREMITIES: There are bilateral dressings present on both feet. White count is 6.3, hemoglobin 11, hematocrit 32.7, platelet count is 214. BUN is 19, creatinine 0.7. I had asked for arterial Dopplers, and I do not see them on the report and not sure if they were done because in a look at the Doppler it said Duplex scan lower extremity artery, but those are venous Dopplers that were only done so I had again ordered arterial Dopplers which I do not see the report, which may be important to see before she goes to OR. Her creatinine is 0.7, BUN is 19. I plan to continue vancomycin also till I get OR cultures. Right now, she does have three polymicrobial yessica, and we will continue with vancomycin and meropenem at this time, and we will make sure they are renewed for her, and we went through the need to modify her diet, and she will need to go to her rehab to get antibiotics as she is noncompliant with her food as well as medicines and may be important to come around for this foot osteomyelitis. We will follow. Alessia Childs MD
[2018-06-12] MEDS: Vancomycin 1 gm/NS 200 ml 1 GM/200 ML BAG IVPB SCH ×2 (01:34→13:08)
[2018-06-12] MEDS: Meropenem 500 MG in Sodium Chloride 0.9% 100 ML IVPB SCH ×3 (06:11→22:08)
--- NOTE | 2018-06-12 07:26 | CP.PCM.PN ---
<Dontae Mann - Last Filed: 06/12/18 07:24> Subjective - Date & Time of Evaluation Date of Evaluation: 06/12/18 Time of Evaluation: 07:24 - Subjective Subjective: PGY-1 Medicine Progress Note for Dr. Carrillo Patient was seen and examined at bedside, resting comfortably and in no acute distress. No acute complaints. No fevers/chills, headaches, chest pain, shortness of breath, abdominal pain, nausea/vomiting/diarrhea. Objective - Vital Signs/Intake and Output Vital Signs (last 24 hours): Temp Pulse Resp BP Pulse Ox 98.1 F 60 20 104/67 99 06/11/18 23:30 06/11/18 23:30 06/11/18 23:30 06/11/18 23:30 06/11/18 23:30 - Medications Medications: Current Medications Acetaminophen (Tylenol 325mg Tab) 650 mg PO Q6 PRN PRN Reason: Fever >100.4 F Ascorbic Ac/Ferrous Sulf/Folic Acid (Iberet-Folic 500) 1 ter PO DAILY [facility] Last Admin: 06/11/18 09:58 Dose: 1 ter Ascorbic Acid (Vitamin C 500 Mg Tab) 500 mg PO DAILY [facility] Last Admin: 06/11/18 09:58 Dose: 500 mg Gabapentin (Neurontin) 300 mg PO BID [facility] Last Admin: 06/11/18 17:31 Dose: 300 mg Heparin Sodium (Porcine) (Heparin) 5,000 units SC Q8 [facility] Last Admin: 06/12/18 06:14 Dose: 5,000 units Meropenem 500 mg/ Sodium (Chloride) 100 mls @ 100 mls/hr IVPB Q8H [facility] PRN Reason: Protocol Last Admin: 06/12/18 06:11 Dose: 100 mls/hr Vancomycin/Sodium Chloride (Vancomycin 1 Gm/Ns 200 Ml) 1 gm in 200 mls @ 166.6 mls/hr IVPB Q12H [facility] PRN Reason: Protocol Stop: 06/17/18 01:01 Last Admin: 06/12/18 01:34 Dose: 166.6 mls/hr Insulin Human Regular (Novolin R) 0 unit SC ACHS [facility] PRN Reason: Protocol Last Admin: 06/11/18 21:43 Dose: Not Given Lactobacillus Acidophilus (Bacid Acidophilus) 1 cap PO BID [facility] Last Admin: 06/11/18 17:31 Dose: 1 cap Lisinopril (Zestril) 2.5 mg PO DAILY [facility] Last Admin: 06/11/18 09:58 Dose: 2.5 mg Morphine Sulfate (Morphine) 1 mg IVP Q6H PRN PRN Reason: Pain, severe (8-10) Last Admin: 06/11/18 21:26 Dose: 1 mg Nicotine (Nicoderm Cq) 1 patch TD DAILY [facility] Last Admin: 06/11/18 09:58 Dose: 1 patch Paroxetine HCl (Paxil) 20 mg PO DAILY [facility] Last Admin: 06/11/18 09:58 Dose: 20 mg Rosuvastatin Calcium (Crestor) 10 mg PO HS [facility] Last Admin: 06/11/18 21:22 Dose: 10 mg Topiramate (Topamax) 25 mg PO DAILY [facility] Last Admin: 06/11/18 09:58 Dose: 25 mg - Labs Labs: 06/11/18 08:25 06/11/18 08:25 PT 11.2 SECONDS (9.7-12.2) 06/10/18 07:01 INR 1.0 06/10/18 07:01 APTT 32 SECONDS (21-34) D 06/08/18 06:57 - Constitutional Appears: Non-toxic, No Acute Distress - Head Exam Head Exam: ATRAUMATIC, NORMAL INSPECTION, NORMOCEPHALIC - Eye Exam Eye Exam: EOMI, Normal appearance Pupil Exam: NORMAL ACCOMODATION - ENT Exam ENT Exam: Mucous Membranes Moist, Normal Exam - Respiratory Exam Respiratory Exam: Clear to Ausculation Bilateral, NORMAL BREATHING PATTERN. absent: Rales, Rhonchi, Wheezes, Respiratory Distress, Stridor - Cardiovascular Exam Cardiovascular Exam: REGULAR RHYTHM, +S1, +S2. absent: Murmur - Extremities Exam Extremities Exam: Full ROM, Normal Capillary Refill. absent: Pedal Edema, Tenderness Additional comments: dressings on bilateral feet leaking betadine, c/i. dressings replaced by podiatry daily peripheral pulses palpable bilaterally (radial, PT) PICC line in R arm, in place confirmed by CXR - Back Exam Back Exam: NORMAL INSPECTION - Neurological Exam Neurological Exam: Alert, Awake, CN II-XII Intact, Oriented x3 - Psychiatric Exam Psychiatric exam: Normal Affect, Normal Mood - Skin Skin Exam: Dry, Intact, Normal Color, Warm Assessment and Plan - Assessment and Plan (Free Text) Assessment: 62 year old female with a past medical history of depression, diabetes, hypertension, and hyperlipidemia admitted for evaluation and treatment of bilateral non-healing diabetic foot ulceration leading to osteomyelitis. Plan: Diabetic Foot Ulcers - ED: Tylenol, Cefazolin, Vancomycin x2, Toradol, Fluid Bolus. 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 1.8cm abscess laterally adjacent to 1st metatarsal head. Acute osteomyelitis within the 1st metatarsal, and at 2nd proximal phalanx. Mild fraying consistent with low grade sprained ankle or partial tear. Prominent degen changes in the midfoot with bony spurring and osteochondral changes - MRI L LE (06/07): cellulitis, early osteomyelitis at 1st distal phalanx. Milder reticulation, possible cellulitis at the 2nd digit. Osteochondral changes. Low grade sprained ankle or partial tear. - wound Cx (06/05): Pseudomonas Aerugenousa, Klebsiella Oxytoca, both sensitive to Merrem. Streptococcus Viridans, awaiting sensitivities; empirically covered by vanc - blood Cx (06/05) negative at 72 hours. PICC/midline placement for prison abx for osteomyelitis conset obtained - CXR (06/09): negative for acute pathology, PICC line in place - EKG ordered, not taken - Podiatry consulted: Dr. Nathanael pereira appreciated - wound cleansed with betadine/saline flush; redressed with betadine/DSD - scheduled for I&D on 06/13 @ 7:45am - will continue to follow - ID consulted: Dr. Amadeo pereira appreciated - cont IV abx - will continue to follow - Vancomycin 1gm IVPB q12 (started 06/05) - vanc trough (06/09) 14.1, will keep same dosing - Next vanc troph 06/10 @12:30PM - Zosyn 3.375gm IVPB q6 (06/06-06/07) stopped d/t poor sensitivity - Merrem 500mg IVPB q8 (started 06/07) - Morphine 1mg IVP q6 prn - Vitamin C 500mg po daily Sepsis - Fever: Tmax - 06/05 @ 2024: 101.3F, WBC 11.6, HR 108 - foot ulceration as likely source - VBG lactate: 3.2 -> 1.0 - CXR (06/05): mild venous congestion; negative for acute disease process - urine Cx (06/05): negative - blood Cx (06/05): negative @ 72 hours - abx as above: Vancomycin and Merrem - Tylenol 650mg po q6 prn for fever > 100.4F Right Lower Ext. Swelling - US RLE venous Doppler (06/06): negative - US RLE arterial Doppler: negative, pending official read. JACEK R 1.12, JACEK L 1.07. - continue to monitor swelling Hyperlipidemia - home Simvastatin 40mg -> Crestor 10mg po HS Diabetes w/ neuropathy - Hold Home meds - ISS ACHS - currently well controlled on ISS without basal insulin - Gabapentin 300mg po bid - Lisinopril 2.5mg po daily Psych Disorders: - home Paxil 20mg po daily - home Topiramate 25mg po daily Constipation - Colace 100 mg po TID Tobacco use - Nicotine 7mg/24hr 1 patch TD daily - counseled on cessation PPx, Diet, Disposition - DVT: Heparin 5000u sc q8, SCDs CI d/t LE swelling - GI: not indicated at this time, Bacid - Diabetic Diet - Dispo: Patient scheduled for I&D on 06/13 at 7:45 with podiatry as patient agreed to have procedure while in hospital. She will be place NPO at midnight Wednesday into Wednesday. Pending Celine MONTEJO following procedure. Case to be discussed with Dr. Gerardo Mann DO, PGY-1 <Sakina Carrillo V - Last Filed: 06/12/18 15:02> Objective - Vital Signs/Intake and Output Vital Signs (last 24 hours): Temp Pulse Resp BP Pulse Ox 97.6 F 55 L 20 105/65 99 06/12/18 07:00 06/12/18 07:00 06/12/18 07:00 06/12/18 07:00 06/12/18 07:00 - Medications Medications: Current Medications Acetaminophen (Tylenol 325mg Tab) 650 mg PO Q6 PRN PRN Reason: Fever >100.4 F Ascorbic Ac/Ferrous Sulf/Folic Acid (Iberet-Folic 500) 1 ter PO DAILY [facility] Last Admin: 06/12/18 10:50 Dose: 1 ter Ascorbic Acid (Vitamin C 500 Mg Tab) 500 mg PO DAILY [facility] Last Admin: 06/12/18 10:49 Dose: 500 mg Gabapentin (Neurontin) 300 mg PO BID [facility] Last Admin: 06/12/18 10:50 Dose: 300 mg Heparin Sodium (Porcine) (Heparin) 5,000 units SC Q8 [facility] Last Admin: 06/12/18 06:14 Dose: 5,000 units Meropenem 500 mg/ Sodium (Chloride) 100 mls @ 100 mls/hr IVPB Q8H [facility] PRN Reason: Protocol Last Admin: 06/12/18 06:11 Dose: 100 mls/hr Vancomycin/Sodium Chloride (Vancomycin 1 Gm/Ns 200 Ml) 1 gm in 200 mls @ 166.6 mls/hr IVPB Q12H [facility] PRN Reason: Protocol Stop: 06/17/18 01:01 Last Admin: 06/12/18 13:08 Dose: 166.6 mls/hr Insulin Human Regular (Novolin R) 0 unit SC ACHS [facility] PRN Reason: Protocol Last Admin: 06/12/18 13:07 Dose: 2 units Lactobacillus Acidophilus (Bacid Acidophilus) 1 cap PO BID [facility] Last Admin: 06/12/18 10:49 Dose: 1 cap Lisinopril (Zestril) 2.5 mg PO DAILY [facility] Last Admin: 06/12/18 10:51 Dose: 2.5 mg Morphine Sulfate (Morphine) 1 mg IVP Q6H PRN PRN Reason: Pain, severe (8-10) Last Admin: 06/11/18 21:26 Dose: 1 mg Nicotine (Nicoderm Cq) 1 patch TD DAILY [facility] Last Admin: 06/12/18 10:49 Dose: 1 patch Paroxetine HCl (Paxil) 20 mg PO DAILY [facility] Last Admin: 06/12/18 10:50 Dose: 20 mg Rosuvastatin Calcium (Crestor) 10 mg PO HS [facility] Last Admin: 06/11/18 21:22 Dose: 10 mg Topiramate (Topamax) 25 mg PO DAILY [facility] Last Admin: 06/12/18 10:50 Dose: 25 mg - Labs Labs: 06/12/18 07:27 06/12/18 07:27 PT 11.2 SECONDS (9.7-12.2) 06/10/18 07:01 INR 1.0 06/10/18 07:01 APTT 32 SECONDS (21-34) D 06/08/18 06:57 Attending/Attestation - Attestation I have personally seen and examined this patient.: Yes I have fully participated in the care of the patient.: Yes I have reviewed all pertinent clinical information, including history, physical exam and plan: Yes Notes (Text): Patient seen, examined, case discussed with medical transcription. This is a 62-year-old female with past medical history of depression, diabetes, hypertension, hyperlipidemia, and a chronic right diabetic foot ulcer noted over the right foot which prompted hospitalization presently. This is my first time meeting the patient. She is very pleasant. She denies no acute complaints except for pain localized over the right heel which is elicited on exam on palpation. Assessment/plan 1). Bilateral Diabetic Foot Ulcers with Osteomyelitis and Developing Abscesses Assessment/plan * Podiatry Dr. Huffman on board help appreciated * Patient seen by podiatry. Educated about the importance of surgical wound primarily drainage of the abscess. Patient agreeable to surgery plan. Patient scheduled for the OR tomorrow May 2040 7:45 AM. Preoperative/ intraoperative/postoperative management per surgery. * Hold anticoagulation for tonight. * Nothing by mouth after midnight * Infectious disease doctor Dr. Childs on board help appreciated * ID recommended to continue IV antibiotics, and that she is noncompliant with both food and medicine to for rehabilitation for her ostomy mellitus. * Patient is on meropenem 500 mg IV every 8 hours since June 07 * Patient is on vancomycin 1 g IV every 12 since June 05 * Patient's right foot culture from June 05 noted for Pseudomonas, Klebsiella, and Klebsiella viridans. Pseudomonas is sensitive to meropenem. Klebsiella is sensitive to meropenem. Organism 3 does not have any associated antibiotic correlation. * Tibia-fibula right x-ray unremarkable * No DVT noted on venous Dopplers * Right lower extremity MRI from June 06: Noted for prior post resections of the first digit to the first metatarsal head noted prior resection of the second digit of the left proximal phalanx. Noted for loculated fluid intensity in the medial soft tissues around the first metatarsal head by 1.9 x 1.4 x 1.9 cm concerning for abscess. Concerning for second digit proximal phalanx for osteomyelitis. * Arterial Dopplers: Is no evidence of hemodynamically significant arterial insufficiency in the right lower extremity. There is no evidence of hemodynamically significant arterial insufficiency in the left lower extremity. * Left lower extremity MRI from June 07: Confluent reticulation and edema seen within the medial and volar subcutaneous soft tissues at the level of the first distal phalanx concerning for cellulitis and possible developing phlegmon use collection. Suggestion for also acute osteomyelitis as well. * Blood cultures from June 05 no growth after 5 days 2 * Urine culture from the also no growth 2). Right Leg Edema: Venous Doppler Leg negative for DVT 3). Hx DM 2 requiring Insulin Assessment/plan * Prior hemoglobin A1c 6.8 in June 2016 we'll repeat A1c * Crestor 10 mg by mouth daily at bedtime * Lisinopril 2.5 mg once a day * Patient is currently not on any aspirin given that she is here for surgical intervention. * Sugars in the mid 150s * Regular insulin sliding scale medium * Gabapentin 300 mg by mouth twice a day 4). Hx HLD Assessment/plan * Crestor 10 mg by mouth daily at bedtime 5). Hx Diabetic Neuropathy Assessment/plan * Gabapentin 300mg PO BID * Topmax 25mg PO daily 6). Hx Depression Assessment/plan * Paxil 20 mg by mouth once a day 7). Hx HTN Assessment/plan * Lisinopril 2.5 mg once a day 8). Hx Nicotine Addiction * Nicoderm Patch transdermal once a day 9). Vaginal Itching: * Diflucan x 1 dose 06/10/18 * No complaints for vaginal itching during my into today. 10. Prophylactic measure Heparin to be discontinued tonight in anticipation for surgery with podiatry A she is medically optimized for procedure for tomorrow. A she is nothing by mouth after midnight.
[2018-06-12 07:43] LABS: BASO # 0.1 K/uL (0.0-0.2); BASO % 1.1 % (0.0-2.0); EOS # 0.3 K/uL (0.0-0.7); EOS % 5.1 % (0.0-4.0); HEMOGLOBIN 11.4 g/dL (11.0-16.0); LYMPH # 2.5 K/uL (1.0-4.3); LYMPH % 36.5 % (20.0-40.0); MEAN CELL VOLUME 89.8 fL (81.0-99.0); MEAN CORPUSCULAR HEMOGLOBIN 29.8 pg (27.0-31.0); MEAN CORPUSCULAR HGB CONC 33.2 g/dL (33.0-37.0); MEAN PLATELET VOLUME 8.3 fL (7.2-11.7); MONO # 0.6 K/uL (0.0-0.8); MONO % 8.9 % (0.0-10.0); NEUT # 3.3 K/uL (1.8-7.0); NEUT % 48.4 % (50.0-75.0); NRBC % 0.1 % (0.0-2.0); RBC 3.81 Mil/uL (3.80-5.20); RED CELL DISTRIBUTION WIDTH 13.8 % (11.5-14.5); WHITE BLOOD COUNT 6.9 K/uL (4.8-10.8)
[2018-06-12 08:13] LABS: ALB/GLOB RATIO 1.2 (1.0-2.1); ALBUMIN 3.7 g/dL (3.5-5.0); ALT/SGPT 29 U/L (9-52); AST/SGOT 22 U/L (14-36); BLOOD UREA NITROGEN 25 mg/dL (7-17); GFR NON-AFRICAN AMERICAN > 60
[2018-06-12] MEDS: Lactobacillus Acidophilus 500 MU Cap PO SCH ×2 (10:49→17:28)
[2018-06-12] MEDS: Folic Acid/Ascorbic Acid/Ferrous Sulfate 1 Tab PO SCH (10:50)
[2018-06-12] MEDS: (Novolin R) Insulin Human Regular 100 units/ml vial SC SCH ×4 (11:40→21:58)
--- NOTE | 2018-06-12 14:45 | CP.PCM.PN ---
Subjective - Date & Time of Evaluation Date of Evaluation: 06/12/18 Time of Evaluation: 13:00 - Subjective Subjective: Podiatry Progress note: Dr. Huffman 62F evaluated for right plantar submet head one wound. Patient is resting comfortably in bed, AAOx3 and appears in no acute distress. Denies of any acute overnight events. Denies of bleeding noted from the foot today. Reports no issues with talking in surgical shoe. Patient understands she will go to surgery in the AM for Right foot ulceration debridement with incision and drainage of right foot abscess. All questions/concerns addressed. At rest, denies of pain. Denies of recent F/N/V/C/SOB/CP/headache. Objective - Vital Signs/Intake and Output Vital Signs (last 24 hours): Temp Pulse Resp BP Pulse Ox 97.6 F 55 L 20 105/65 99 06/12/18 07:00 06/12/18 07:00 06/12/18 07:00 06/12/18 07:00 06/12/18 07:00 - Medications Medications: Current Medications Acetaminophen (Tylenol 325mg Tab) 650 mg PO Q6 PRN PRN Reason: Fever >100.4 F Ascorbic Ac/Ferrous Sulf/Folic Acid (Iberet-Folic 500) 1 ter PO DAILY [facility] Last Admin: 06/12/18 10:50 Dose: 1 ter Gabapentin (Neurontin) 300 mg PO BID [facility] Last Admin: 06/12/18 10:50 Dose: 300 mg Meropenem 500 mg/ Sodium (Chloride) 100 mls @ 100 mls/hr IVPB Q8H [facility] PRN Reason: Protocol Last Admin: 06/12/18 14:28 Dose: 100 mls/hr Vancomycin/Sodium Chloride (Vancomycin 1 Gm/Ns 200 Ml) 1 gm in 200 mls @ 166.6 mls/hr IVPB Q12H [facility] PRN Reason: Protocol Stop: 06/17/18 01:01 Last Admin: 06/12/18 13:08 Dose: 166.6 mls/hr Insulin Human Regular (Novolin R) 0 unit SC ACHS [facility] PRN Reason: Protocol Last Admin: 06/12/18 13:07 Dose: 2 units Lactobacillus Acidophilus (Bacid Acidophilus) 1 cap PO BID [facility] Last Admin: 06/12/18 10:49 Dose: 1 cap Lisinopril (Zestril) 2.5 mg PO DAILY [facility] Last Admin: 06/12/18 10:51 Dose: 2.5 mg Morphine Sulfate (Morphine) 1 mg IVP Q6H PRN PRN Reason: Pain, severe (8-10) Last Admin: 06/11/18 21:26 Dose: 1 mg Nicotine (Nicoderm Cq) 1 patch TD DAILY [facility] Last Admin: 06/12/18 10:49 Dose: 1 patch Paroxetine HCl (Paxil) 20 mg PO DAILY [facility] Last Admin: 06/12/18 10:50 Dose: 20 mg Rosuvastatin Calcium (Crestor) 10 mg PO HS [facility] Last Admin: 06/11/18 21:22 Dose: 10 mg Topiramate (Topamax) 25 mg PO DAILY [facility] Last Admin: 06/12/18 10:50 Dose: 25 mg - Labs Labs: 06/12/18 07:27 06/12/18 07:27 PT 11.2 SECONDS (9.7-12.2) 06/10/18 07:01 INR 1.0 06/10/18 07:01 APTT 32 SECONDS (21-34) D 06/08/18 06:57 - Constitutional Appears: Well, Non-toxic, No Acute Distress - Extremities Exam Extremities Exam: absent: Calf Tenderness Additional comments: DERM: Right Foot- full-thickness 2 cm X 2 cm ulceration present submet 1 of the right foot, fibro-granular base, hyperkeratotic marcela-wound border with hyperpigmentation, +probe to bone, + minimal purulent drainage, + tracking proximally at 6 'o clock, + malodor, + marcela-wound erythema, ulcer noted to the tip of the 2nd digit measuring approximately .5cm x .5cm x .1 cm, mild sangious drainaged, no probe to bone, no odor, no clinical sign of infection to the 2nd digit Left Foot- pre-ulcerative lesion measuring 3 cm X 4 cm present to submet 1 on the left foot with marcela-wound erythema, hyperkeratotic marcela-wound border with hyperpigmentation, no drainage, no clinical signs of infection to the left foot ORTHO: pain on palpation at the ulceration and diffuse pain on palpation to the right leg and foot, 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 nonhealing R sub-metatarsal head 1 ulceration (Garcia 3) with abscess and osteomyelitis (+) 2. 2nd digit tip ulceration with osteomyelitis (+ ) 3. L foot preulcerative lesion sub-metatarsal 1 Plan: Patient seen and evaluated Plan discussed with attending Dr. Huffman Labs, vitals and charts reviewed - No leukocytosis; afebrile Foot X-ray 06/05: soft tissue defect plantar submet 1, partial 1st ray amp with osteolytic changes to the stump, periostel changes, no signs of soft tissue emphysema Tib-Fib X-ray 06/05: no signs of soft tissue emphysema MRI- Increase in signal intensity along the shaft of the 1st metatarsal on T2 image consistent with OM Wound Cultures- Pseudomonas Aeruginosa, Klebsiella oxytoca, Strep. viridans Infectious Disease consult- recommendations appreciated - Patient to continue IV Abx as per ID Wound cleansed with betadine/saline flush and dressed with betadine/DSD Educated patient the importance of the surgical wound debridement with drainage of the abscess, Patient agrees with the plan Scheduled for OR Wednesday at 7:45 am - Medical optimization - NPO starting Wednesday night - Hold anticoagulants prior to surgery Podiatry will follow patient while in house
[2018-06-12] MEDS ORDERED: Glucagon Recombinant 1 mg Inj IM PRN (14:57)
[2018-06-12] MEDS ORDERED: Dextrose 50% SYRINGE Inj (50 ml) IVP PRN (14:57)
[2018-06-13] MEDS: Vancomycin 1 gm/NS 200 ml 1 GM/200 ML BAG IVPB SCH ×2 (02:06→13:20)
[2018-06-13] MEDS: Meropenem 500 MG in Sodium Chloride 0.9% 100 ML IVPB SCH ×3 (05:44→22:21)
[2018-06-13] MEDS: (Novolin R) Insulin Human Regular 100 units/ml vial SC SCH ×4 (07:10→22:27)
[2018-06-13] MEDS ORDERED: Midazolam 2 MG/2 ML VIAL ONE (07:33)
[2018-06-13] MEDS ORDERED: Propofol 10 mg/ml Inj (20 ML) ONE ×2 (07:33→09:13)
[2018-06-13] MEDS ORDERED: Bupivacaine 0.25% 20 ML INJ IJ ONE (07:56)
[2018-06-13] MEDS ORDERED: Lidocaine Hydrochloride 10 ML INJ ONE (07:56)
[2018-06-13] MEDS ORDERED: ceFAZolin 1 gm in NS 0 GM/0 ML BAG IVPB ONE (07:57)
[2018-06-13 08:10] LABS: BASO # 0.1 K/uL (0.0-0.2); EOS # 0.3 K/uL (0.0-0.7); EOS % 5.1 % (0.0-4.0); HEMOGLOBIN 12.2 g/dL (11.0-16.0); LYMPH # 2.5 K/uL (1.0-4.3); LYMPH % 37.8 % (20.0-40.0); MEAN CELL VOLUME 88.9 fL (81.0-99.0); MEAN CORPUSCULAR HEMOGLOBIN 29.9 pg (27.0-31.0); MEAN CORPUSCULAR HGB CONC 33.7 g/dL (33.0-37.0); MEAN PLATELET VOLUME 8.3 fL (7.2-11.7); MONO # 0.6 K/uL (0.0-0.8); MONO % 9.5 % (0.0-10.0); NEUT # 3.1 K/uL (1.8-7.0); NEUT % 46.6 % (50.0-75.0); NRBC % 0.1 % (0.0-2.0); RBC 4.08 Mil/uL (3.80-5.20); RED CELL DISTRIBUTION WIDTH 13.7 % (11.5-14.5); WHITE BLOOD COUNT 6.6 K/uL (4.8-10.8)
[2018-06-13 08:30] LABS: ALB/GLOB RATIO 1.3 (1.0-2.1); ALBUMIN 4.1 g/dL (3.5-5.0); ALT/SGPT 29 U/L (9-52); AST/SGOT 21 U/L (14-36); BLOOD UREA NITROGEN 24 mg/dL (7-17); CALCIUM 10.3 mg/dl (8.6-10.4); GFR NON-AFRICAN AMERICAN > 60
[2018-06-13] MEDS ORDERED: ePHEDrine 50 mg/ml Inj ONE (09:23)
--- NOTE | 2018-06-13 09:27 | CP.PCM.PN ---
<Jaswant Wang - Last Filed: 06/13/18 20:15> Subjective - Date & Time of Evaluation Date of Evaluation: 06/13/18 Time of Evaluation: 01:30 - Subjective Subjective: Progress Note for Hospitalist Service Pt seen and examined at bedside. Reports pain well controlled, no acute complaints. S/p I+D of R foot abscess performed by Dr. Huffman today. Tolerating PO diet, passing flatus, voided without concerns post procedure. Denies headache , fever, chills, chest pain, shortness of breath, n/v/d/c, abd pain, or other symptoms. Objective - Vital Signs/Intake and Output Vital Signs (last 24 hours): Temp Pulse Resp BP Pulse Ox 97.7 F 56 L 20 111/66 97 06/13/18 07:56 06/13/18 07:56 06/13/18 07:56 06/13/18 07:56 06/13/18 07:56 - Medications Medications: Current Medications Acetaminophen (Tylenol 325mg Tab) 650 mg PO Q6 PRN PRN Reason: Fever >100.4 F Ascorbic Ac/Ferrous Sulf/Folic Acid (Iberet-Folic 500) 1 ter PO DAILY [facility] Last Admin: 06/12/18 10:50 Dose: 1 ter Dextrose (Dextrose 50% Inj) 0 ml IVP .STAT PRN; Protocol PRN Reason: Hypoglycemia Protocol Dextrose (Glutose 15) 0 gm PO .ONCE PRN; Protocol PRN Reason: Hypoglycemia Protocol Gabapentin (Neurontin) 300 mg PO BID [facility] Last Admin: 06/12/18 17:28 Dose: 300 mg Glucagon (Glucagen Diagnostic Kit) 0 mg IM .STAT PRN; Protocol PRN Reason: Hypoglycemia Protocol Meropenem 500 mg/ Sodium (Chloride) 100 mls @ 100 mls/hr IVPB Q8H [facility] PRN Reason: Protocol Last Admin: 06/13/18 05:44 Dose: 100 mls/hr Vancomycin/Sodium Chloride (Vancomycin 1 Gm/Ns 200 Ml) 1 gm in 200 mls @ 166.6 mls/hr IVPB Q12H [facility] PRN Reason: Protocol Stop: 06/17/18 01:01 Last Admin: 06/13/18 02:06 Dose: Not Given Dextrose (Dextrose 5% In Water 1000 Ml) 1,000 mls @ 0 mls/hr IV .Q0M PRN; Protocol; Per Protocol PRN Reason: Hypoglycemia Protocol Insulin Human Regular (Novolin R) 0 unit SC ACHS [facility] PRN Reason: Protocol Last Admin: 06/12/18 21:58 Dose: Not Given Lactobacillus Acidophilus (Bacid Acidophilus) 1 cap PO BID [facility] Last Admin: 06/12/18 17:28 Dose: 1 cap Lisinopril (Zestril) 2.5 mg PO DAILY [facility] Last Admin: 06/12/18 10:51 Dose: 2.5 mg Morphine Sulfate (Morphine) 1 mg IVP Q6H PRN PRN Reason: Pain, severe (8-10) Last Admin: 06/12/18 22:27 Dose: 1 mg Nicotine (Nicoderm Cq) 1 patch TD DAILY [facility] Last Admin: 06/12/18 10:49 Dose: 1 patch Paroxetine HCl (Paxil) 20 mg PO DAILY [facility] Last Admin: 06/12/18 10:50 Dose: 20 mg Rosuvastatin Calcium (Crestor) 10 mg PO HS [facility] Last Admin: 06/12/18 22:08 Dose: 10 mg Topiramate (Topamax) 25 mg PO DAILY [facility] Last Admin: 06/12/18 10:50 Dose: 25 mg - Labs Labs: 06/13/18 07:59 06/13/18 07:59 PT 11.2 SECONDS (9.7-12.2) 06/10/18 07:01 INR 1.0 06/10/18 07:01 APTT 32 SECONDS (21-34) D 06/08/18 06:57 - Head Exam Head Exam: ATRAUMATIC, NORMOCEPHALIC - Eye Exam Eye Exam: EOMI, Normal appearance, PERRL - ENT Exam ENT Exam: Mucous Membranes Moist - Respiratory Exam Respiratory Exam: Clear to Ausculation Bilateral, NORMAL BREATHING PATTERN. absent: Rales, Rhonchi, Wheezes - Cardiovascular Exam Cardiovascular Exam: REGULAR RHYTHM, +S1, +S2 - GI/Abdominal Exam GI & Abdominal Exam: Soft, Normal Bowel Sounds. absent: Distended, Firm, Guarding, Rigid, Tenderness, Rebound - Extremities Exam Extremities Exam: Full ROM, Normal Capillary Refill Additional comments: Dressing applied to surgical site on R foot, c/d/i - Neurological Exam Neurological Exam: Alert, Awake, CN II-XII Intact, Oriented x3 - Skin Skin Exam: Dry, Intact, Warm Assessment and Plan - Assessment and Plan (Free Text) Assessment: 62 year old female with a past medical history of depression, diabetes, hypertension, and hyperlipidemia admitted for evaluation and treatment of bilateral non-healing diabetic foot ulceration leading to osteomyelitis. S/p I+ D of R foot abscess by Dr. Huffman POD#0 Plan: Diabetic Foot Ulcers - ED: Tylenol, Cefazolin, Vancomycin x2, Toradol, Fluid Bolus. 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 1.8cm abscess laterally adjacent to 1st metatarsal head. Acute osteomyelitis within the 1st metatarsal, and at 2nd proximal phalanx. Mild fraying consistent with low grade sprained ankle or partial tear. Prominent degen changes in the midfoot with bony spurring and osteochondral changes - MRI L LE (06/07): cellulitis, early osteomyelitis at 1st distal phalanx. Milder reticulation, possible cellulitis at the 2nd digit. Osteochondral changes. Low grade sprained ankle or partial tear. - wound Cx (06/05): Pseudomonas Aerugenousa, Klebsiella Oxytoca, both sensitive to Merrem. Streptococcus Viridans, awaiting sensitivities; empirically covered by vanc - blood Cx (06/05) negative at 72 hours. PICC/midline placement for group home abx for osteomyelitis conset obtained - CXR (06/09): negative for acute pathology, PICC line in place - EKG ordered, not taken - Podiatry consulted: Dr. Nathanael pereira appreciated - wound cleansed with betadine/saline flush; redressed with betadine/DSD - S/p I+D of R foot abscess on 06/13/18 - will continue to follow - ID consulted: Dr. Amadeo pereira appreciated - cont IV abx - will continue to follow - Vancomycin 1gm IVPB q12 (started 06/05) - Zosyn 3.375gm IVPB q6 (06/06-06/07) stopped d/t poor sensitivity - Merrem 500mg IVPB q8 (started 06/07) - Morphine 1mg IVP q6 prn - Vitamin C 500mg po daily Sepsis - Fever: Tmax - 06/05 @ 2024: 101.3F, WBC 11.6, HR 108 - foot ulceration as likely source - VBG lactate: 3.2 -> 1.0 - CXR (06/05): mild venous congestion; negative for acute disease process - urine Cx (06/05): negative - blood Cx (06/05): negative @ 72 hours - abx as above: Vancomycin and Merrem - Tylenol 650mg po q6 prn for fever > 100.4F Right Lower Ext. Swelling - US RLE venous Doppler (06/06): negative - US RLE arterial Doppler: negative, pending official read. JACEK R 1.12, JACEK L 1.07. - continue to monitor swelling Hyperlipidemia - home Simvastatin 40mg -> Crestor 10mg po HS Diabetes w/ neuropathy - Hold Home meds - ISS ACHS - currently well controlled on ISS without basal insulin - Gabapentin 300mg po bid - Lisinopril 2.5mg po daily Psych Disorders - home Paxil 20mg po daily - home Topiramate 25mg po daily Constipation - Colace 100 mg po TID Tobacco use - Nicotine 7mg/24hr 1 patch TD daily - counseled on cessation PPx, Diet, Disposition - DVT: Heparin 5000u sc q8, SCDs CI d/t LE swelling - GI: not indicated at this time, Bacid - Diabetic Diet - Dispo: Patient s/p I&D on 06/13 at 7:45 with podiatry POD#0, doing well post- procedure. Pending Celine MONTEJO following procedure. Pt seen, examined with, and plan discussed with Dr. Carrillo, attending. Jaswant Wang DO PGY-1, [place] Pager #[phone] <Sakina Carrillo V - Last Filed: 06/13/18 22:00> Objective - Vital Signs/Intake and Output Vital Signs (last 24 hours): Temp Pulse Resp BP Pulse Ox 98.1 F 80 20 100/68 97 06/13/18 16:58 06/13/18 16:58 06/13/18 16:58 06/13/18 16:58 06/13/18 16:58 Intake and Output: 06/13/18 06/14/18 18:59 06:59 Intake Total 450 Balance 450 - Medications Medications: Current Medications Acetaminophen (Tylenol 325mg Tab) 650 mg PO Q6 PRN PRN Reason: Fever >100.4 F Acetaminophen (Tylenol 650mg/20.3ml Solution Ud) 650 mg PO Q6 PRN PRN Reason: Pain, Mild (1-3) Ascorbic Ac/Ferrous Sulf/Folic Acid (Iberet-Folic 500) 1 ter PO DAILY [facility] Last Admin: 06/12/18 10:50 Dose: 1 ter Dextrose (Dextrose 50% Inj) 0 ml IVP .STAT PRN; Protocol PRN Reason: Hypoglycemia Protocol Dextrose (Glutose 15) 0 gm PO .ONCE PRN; Protocol PRN Reason: Hypoglycemia Protocol Gabapentin (Neurontin) 300 mg PO BID [facility] Last Admin: 06/13/18 18:58 Dose: 300 mg Glucagon (Glucagen Diagnostic Kit) 0 mg IM .STAT PRN; Protocol PRN Reason: Hypoglycemia Protocol Meropenem 500 mg/ Sodium (Chloride) 100 mls @ 100 mls/hr IVPB Q8H [facility] PRN Reason: Protocol Last Admin: 06/13/18 14:55 Dose: 100 mls/hr Vancomycin/Sodium Chloride (Vancomycin 1 Gm/Ns 200 Ml) 1 gm in 200 mls @ 166.6 mls/hr IVPB Q12H [facility] PRN Reason: Protocol Stop: 06/17/18 01:01 Last Admin: 06/13/18 13:20 Dose: 166.6 mls/hr Dextrose (Dextrose 5% In Water 1000 Ml) 1,000 mls @ 0 mls/hr IV .Q0M PRN; Protocol; Per Protocol PRN Reason: Hypoglycemia Protocol Insulin Human Regular (Novolin R) 0 unit SC ACHS [facility] PRN Reason: Protocol Last Admin: 06/13/18 19:02 Dose: 2 units Lactobacillus Acidophilus (Bacid Acidophilus) 1 cap PO BID [facility] Last Admin: 06/13/18 18:58 Dose: 1 cap Lisinopril (Zestril) 2.5 mg PO DAILY [facility] Last Admin: 06/13/18 12:15 Dose: 2.5 mg Morphine Sulfate (Morphine) 1 mg IVP Q6H PRN PRN Reason: Pain, severe (8-10) Last Admin: 06/12/18 22:27 Dose: 1 mg Nicotine (Nicoderm Cq) 1 patch TD DAILY [facility] Last Admin: 06/13/18 12:15 Dose: 1 patch Oxycodone/Acetaminophen (Percocet 5/325 Mg Tab) 1 tab PO Q6H PRN PRN Reason: Pain, moderate (4-7) Stop: 06/16/18 10:13 Paroxetine HCl (Paxil) 20 mg PO DAILY [facility] Last Admin: 06/13/18 12:15 Dose: 20 mg Rosuvastatin Calcium (Crestor) 10 mg PO HS [facility] Last Admin: 06/12/18 22:08 Dose: 10 mg Topiramate (Topamax) 25 mg PO DAILY [facility] Last Admin: 06/13/18 12:15 Dose: 25 mg - Labs Labs: 06/13/18 07:59 06/13/18 07:59 PT 11.2 SECONDS (9.7-12.2) 06/10/18 07:01 INR 1.0 06/10/18 07:01 APTT 32 SECONDS (21-34) D 06/08/18 06:57 Attending/Attestation - Attestation I have personally seen and examined this patient.: Yes I have fully participated in the care of the patient.: Yes I have reviewed all pertinent clinical information, including history, physical exam and plan: Yes Notes (Text): Patient seen, examined, case discussed with medical tech. This is a 62-year-old female with past medical history of depression, diabetes, hypertension, hyperlipidemia, and a chronic right diabetic foot ulcer noted over the right foot which prompted hospitalization presently. Patient seen post OR today for a right foot I&D. Patient seen post procedure. Patient notes she did urinate post procedure has not had a bowel movement yet today and pain is relatively controlled. Patient remains on IV antibiotics to cover for osteomyelitis we will need to follow-up with iodine terms of length of time in which antibiotics for preference. Patient has noted that she has required recent rehabilitation in her prior resections. He did speak with the attending dietary is just to evaluate the left lower extremity MRI as well given that there was also phlegmon on changes since it has not been commented on the prior podiatry notes as well to see if she requires any further intervention during this hospitalization. Assessment/plan 1). Bilateral Diabetic Foot Ulcers with Osteomyelitis and Developing Abscesses Assessment/plan * Podiatry Dr. Huffman on board help appreciated * Patient seen by podiatry. Educated about the importance of surgical wound primarily drainage of the abscess. Patient agreeable to surgery plan. Patient scheduled for the OR June 13 7:45 AM. Preoperative/intraoperative/ postoperative management per surgery. * Hold anticoagulation yesterday--> will need to follow-up with podiatry in terms of restarting DVT prophylaxis post procedure * Noted patient had 3 foot cultures obtained during or June 13 of the right foot which will need to be followed up * Infectious disease doctor Dr. Childs on board help appreciated * ID recommended to continue IV antibiotics, and that she is noncompliant with both food and medicine to for rehabilitation for her ostoeo mellitus. * Patient is on meropenem 500 mg IV every 8 hours since June 07 * Patient is on vancomycin 1 g IV every 12 since June 05 * Patient's right foot culture from June 05 noted for Pseudomonas, Klebsiella, and Klebsiella viridans. Pseudomonas is sensitive to meropenem. Klebsiella is sensitive to meropenem. Organism 3 does not have any associated antibiotic correlation. * Tibia-fibula right x-ray unremarkable * No DVT noted on venous Dopplers * Right lower extremity MRI from June 06: Noted for prior post resections of the first digit to the first metatarsal head noted prior resection of the second digit of the left proximal phalanx. Noted for loculated fluid intensity in the medial soft tissues around the first metatarsal head by 1.9 x 1.4 x 1.9 cm concerning for abscess. Concerning for second digit proximal phalanx for osteomyelitis. * Arterial Dopplers: Is no evidence of hemodynamically significant arterial insufficiency in the right lower extremity. There is no evidence of hemodynamically significant arterial insufficiency in the left lower extremity. * Left lower extremity MRI from June 07: Confluent reticulation and edema seen within the medial and volar subcutaneous soft tissues at the level of the first distal phalanx concerning for cellulitis and possible developing phlegmon use collection. Suggestion for also acute osteomyelitis as well. * Blood cultures from June 05 no growth after 5 days 2 * Urine culture from the also no growth * Noted patient had 3 foot cultures obtained during or June 13 of the right foot which will need to be followed up 2). Right Leg Edema: Venous Doppler Leg negative for DVT 3). Hx DM 2 requiring Insulin Assessment/plan * A1c 7.0 * Crestor 10 mg by mouth daily at bedtime * Lisinopril 2.5 mg once a day * Patient is currently not on any aspirin given that she is here for surgical intervention. * Sugars in the mid 150s * Regular insulin sliding scale medium * Gabapentin 300 mg by mouth twice a day 4). Hx HLD Assessment/plan * Crestor 10 mg by mouth daily at bedtime 5). Hx Diabetic Neuropathy Assessment/plan * Gabapentin 300mg PO BID * Topmax 25mg PO daily 6). Hx Depression Assessment/plan * Paxil 20 mg by mouth once a day 7). Hx HTN Assessment/plan * Lisinopril 2.5 mg once a day 8). Hx Nicotine Addiction * Nicoderm Patch transdermal once a day 9). Vaginal Itching: * Diflucan x 1 dose 06/10/18 * No complaints for vaginal itching during my into today. 10. Prophylactic measure * Heparin to be discontinued yesterday in anticipation for surgery with podiatry : We'll need to follow-up with podiatry to see when we can restart DVT prophylaxis and aspirin Disposition: Patient had procedure today for right foot I&D given phlegmon is changes in the MRI. We will also need to follow-up with podiatry regards to left foot since her is also developing first distal phalanx with associated phlegmonous changes in the left foot to see that requires surgical intervention.. Patient will ultimately need to be set up for rehabilitation for long-term IV antibiotics we will need to follow-up with infectious disease in terms of recommendations for antibiotics for discharge planning when patient is ready for rehabilitation placement. Noted patient had 3 foot cultures obtained during or June 13 of the right foot which will need to be followed up
[2018-06-13] MEDS ORDERED: Oxycodone/Acetaminophen 5/325 mg Tab PO PRN (10:12)
[2018-06-13] MEDS ORDERED: HYDROmorphone 0.5 mg/0.5 ml ISec IVP PRN (10:12)
[2018-06-13] MEDS ORDERED: Acetaminophen 650mg/20.3ml solution UD PO PRN (10:12)
--- NOTE | 2018-06-13 10:21 | PCM.SURG1 ---
Surgeon's Initial Post Op Note - Surgeon's Notes Surgeon: Dr. pati de luna Scalehouse Attendant: Dr. Anahi Vargas, PGY 1, Renato Alvarez, MS4 Type of Anesthesia: IV Sedation Anesthesia Administered By: Dr Kemp Pre-Operative Diagnosis: Right foot soft tissue abscess and osteomylelitis of the first metatarsal Operative Findings: see dictation. Injectibles: 10 cc of 50:50 mixture of .25% marcaine plain and 1% Lidocaine plain. Materials: 2-0 and 3-0 nylon Post-Operative Diagnosis: same Operation Performed: Right foot incision and drainage of the right foot abscess along with removal of all nonviable bone and tissue Specimen/Specimens Removed: right foot first metatarsal distal shaft and head sent to pathology. Wound cultures - dirty and clean taken intraop Estimated Blood Loss: EBL {In ML}: 20 Blood Products Given: N/A Drains Used: No Drains Post-Op Condition: Good Date of Surgery/Procedure: 06/13/18 Time of Surgery/Procedure: 10:22
[2018-06-13] MEDS: Lactobacillus Acidophilus 500 MU Cap PO SCH ×2 (12:15→18:58)
--- NOTE | 2018-06-13 12:28 | RAD ---
Date of service: 06/13/2018 PROCEDURE: Right Foot Radiographs. HISTORY: post op right foot. COMPARISON: Right foot radiographs dated 06/05/2018 FINDINGS: BONES: Interval more proximal 1st digit transmetatarsal amputation. 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 JOINTS: Diffuse joint space narrowing. SOFT TISSUES: Postsurgical changes adjacent to the 1st digit. OTHER FINDINGS: Achilles enthesophyte. Small inferior plantar calcaneal spur. IMPRESSION: Interval more proximal 1st digit transmetatarsal amputation with adjacent postsurgical changes. No other significant interval change.
--- NOTE | 2018-06-13 15:46 | CP.PCM.PN ---
Subjective - Date & Time of Evaluation Date of Evaluation: 06/13/18 Time of Evaluation: 15:00 - Subjective Subjective: dictated Objective - Vital Signs/Intake and Output Vital Signs (last 24 hours): Temp Pulse Resp BP Pulse Ox 97.2 F L 77 13 103/57 L 97 06/13/18 10:55 06/13/18 10:55 06/13/18 10:55 06/13/18 10:55 06/13/18 10:55 Intake and Output: 06/13/18 06/13/18 06:59 18:59 Intake Total 450 Balance 450 - Medications Medications: Current Medications Acetaminophen (Tylenol 325mg Tab) 650 mg PO Q6 PRN PRN Reason: Fever >100.4 F Acetaminophen (Tylenol 650mg/20.3ml Solution Ud) 650 mg PO Q6 PRN PRN Reason: Pain, Mild (1-3) Ascorbic Ac/Ferrous Sulf/Folic Acid (Iberet-Folic 500) 1 ter PO DAILY [facility] Last Admin: 06/12/18 10:50 Dose: 1 ter Dextrose (Dextrose 50% Inj) 0 ml IVP .STAT PRN; Protocol PRN Reason: Hypoglycemia Protocol Dextrose (Glutose 15) 0 gm PO .ONCE PRN; Protocol PRN Reason: Hypoglycemia Protocol Gabapentin (Neurontin) 300 mg PO BID [facility] Last Admin: 06/13/18 12:15 Dose: 300 mg Glucagon (Glucagen Diagnostic Kit) 0 mg IM .STAT PRN; Protocol PRN Reason: Hypoglycemia Protocol Meropenem 500 mg/ Sodium (Chloride) 100 mls @ 100 mls/hr IVPB Q8H [facility] PRN Reason: Protocol Last Admin: 06/13/18 14:55 Dose: 100 mls/hr Vancomycin/Sodium Chloride (Vancomycin 1 Gm/Ns 200 Ml) 1 gm in 200 mls @ 166.6 mls/hr IVPB Q12H [facility] PRN Reason: Protocol Stop: 06/17/18 01:01 Last Admin: 06/13/18 13:20 Dose: 166.6 mls/hr Dextrose (Dextrose 5% In Water 1000 Ml) 1,000 mls @ 0 mls/hr IV .Q0M PRN; Protocol; Per Protocol PRN Reason: Hypoglycemia Protocol Insulin Human Regular (Novolin R) 0 unit SC ACHS [facility] PRN Reason: Protocol Last Admin: 06/13/18 12:00 Dose: Not Given Lactobacillus Acidophilus (Bacid Acidophilus) 1 cap PO BID [facility] Last Admin: 06/13/18 12:15 Dose: 1 cap Lisinopril (Zestril) 2.5 mg PO DAILY [facility] Last Admin: 06/13/18 12:15 Dose: 2.5 mg Morphine Sulfate (Morphine) 1 mg IVP Q6H PRN PRN Reason: Pain, severe (8-10) Last Admin: 06/12/18 22:27 Dose: 1 mg Nicotine (Nicoderm Cq) 1 patch TD DAILY [facility] Last Admin: 06/13/18 12:15 Dose: 1 patch Oxycodone/Acetaminophen (Percocet 5/325 Mg Tab) 1 tab PO Q6H PRN PRN Reason: Pain, moderate (4-7) Stop: 06/16/18 10:13 Paroxetine HCl (Paxil) 20 mg PO DAILY [facility] Last Admin: 06/13/18 12:15 Dose: 20 mg Rosuvastatin Calcium (Crestor) 10 mg PO HS [facility] Last Admin: 06/12/18 22:08 Dose: 10 mg Topiramate (Topamax) 25 mg PO DAILY [facility] Last Admin: 06/13/18 12:15 Dose: 25 mg - Labs Labs: 06/13/18 07:59 06/13/18 07:59 PT 11.2 SECONDS (9.7-12.2) 06/10/18 07:01 INR 1.0 06/10/18 07:01 APTT 32 SECONDS (21-34) D 06/08/18 06:57
[2018-06-13 17:02] VITALS: RESP 20
[2018-06-14] MEDS: Vancomycin 1 gm/NS 200 ml 1 GM/200 ML BAG IVPB SCH ×2 (01:06→12:44)
--- NOTE | 2018-06-14 02:59 | PN ---
DATE: 06/13/2018 SUBJECTIVE: The patient had OR today. She was postop when I went to see her today, and she had right foot soft tissue abscess and osteomyelitis of the first metatarsal and also had a right foot I and D of the right foot abscess along with removal of all nonviable bone and tissue in the right foot and they removed the right first metatarsal distal shaft and had sent for pathology. Wound cultures, dry and clean, taken to intraoperative, so they did on the first one. I thought the second one also had problem, we will see. The patient had surgery. She denied any other complaints . She had a OR dressing present. Denied any other issues. No nausea, no vomiting. She just came back from the OR. OBJECTIVE: VITAL SIGNS: T-max was 98.1, pulse 80, blood pressure of 100/68, respirations are 20. HEENT: Head is atraumatic, normocephalic. NECK: Supple. LUNGS: Clear. HEART: S1, S2 regular. ABDOMEN: Soft, nontender. No guarding, no rigidity present. EXTREMITIES: Have no edema. Labs are noted. Labs show white count is 6.6, hemoglobin 12.2, hematocrit 36.3, platelet count is 218, BUN is 24, creatinine 0.8, and random blood sugar is 144. Hemoglobin A1c is 7 and the vancomycin trough was 16.3 which was perfect. At this time, we will continue with the vancomycin and the Merrem, and we will follow OR culture. IMPRESSION: The patient came in with osteomyelitis and abscesses and cellulitis of the right foot, also had some ulcerations on the left foot, has had partial surgery before and is diabetic and with peripheral neuropathy, and we will follow. Alessia Childs MD
[2018-06-14] MEDS: Meropenem 500 MG in Sodium Chloride 0.9% 100 ML IVPB SCH ×3 (06:35→21:29)
--- NOTE | 2018-06-14 07:36 | OP ---
PROCEDURE DATE: 06/13/2018 SURGEON: Vikki Huffman DPM ECONOMIC FORECASTER: Anahi Vargas, PGY-1 ANESTHESIOLOGIST: Dr. Kemp. ANESTHESIA: IV sedation with local Sanchez block at the base of the first metatarsal. PREOPERATIVE DIAGNOSIS: Right foot submetatarsal one abscess and osteomyelitis of the first metatarsal. POSTOPERATIVE DIAGNOSIS: Right foot submetatarsal one abscess and osteomyelitis of the first metatarsal. NAME OF PROCEDURE: Right foot incision and drainage of the submetatarsal one abscess and amputation of the first metatarsal at the level of the proximal aspect of the shaft of the first metatarsal. INDICATIONS: The patient is a 62-year-old female with the above diagnosis. The patient has exhausted all conservative treatment at this time and now requires surgical intervention. The patient signed the consent after careful explanation of risk, benefits, complications, and alternatives for surgical procedures. No guarantees were given nor implied. N.p.o. status was confirmed prior to taking the patient to the OR. PREPARATION: The patient was brought into the operating room and placed on the operating room table in a supine position. Time-out was performed for identification of the correct patient and procedure. The patient received a total of 10 mL of 1:1 mixture of 2% lidocaine plain and 0.25% Marcaine plain in a Sanchez block fashion surrounding the first metatarsal base. The right foot was then prepped and draped in normal sterile manner and the procedure began. No tourniquet was used during the procedure. DESCRIPTION OF PROCEDURE: Attention was directed to the medial aspect of the right foot where previous hallux amputation was noted. There was fluctuance noted at the medial aspect of the first metatarsal end. Attention was drawn to the medial dorsal aspect of the right foot first digit where a linear incision was made extending from the head of the first metatarsal distally and proximally to the proximal one-third of the metatarsal, measuring approximately 4 cm using a #15 blade. The incision was then extended down through the subcutaneous layers down to the level of the bone taking care of the neurovascular structures. Using a #15 blade, soft tissue surrounding the bone was freed off dorsally and plantarly. At this point, pus-like drainage along the sanguineous drainage was noted and deep wound cultures were performed. A sagittal saw was then utilized to resect first metatarsal shaft and head from the first metatarsal base. at a 45 degree angle and more bone was taken off plantarly, then dorsally. Using a bone clamp to stabilize the distal aspect of the first metatarsal, the first ray was then freed from the surrounding tissue and removed from the first metatarsal base. All bone and soft tissues were sent for pathology. Pulsed lavage was then utilized to copiously irrigate the site. Wound was then irrigated with Irrisept. Attention was then directed to the submetatarsal one ulcer with hyperkeratotic wound edge. Hyperkeratotic edges were debrided using a #10 and #15 blade down to healthy skin. A 1 cm circumferential ulcer was then excised out after making semi-elliptical incision. The medial first metatarsal incision was then packed with 1/2-inch Iodoform packing. Both incisions were closed using 3-0 and 4-0 nylon sutures using retention sutures initially and then simple and horizontal sutures leaving the medial incision open in the center for packing. Both sites were then dressed with Betadine-soaked Adaptic, 4 x 4 gauze, ABD pads, and Kerlix along with Brendon bandage. POSTOPERATIVE CONDITION: The patient tolerated the local anesthesia and procedure well and was then escorted to the recovery room with neurovascular status intact to the right foot and vital signs stable. The patient is to remain weightbearing as tolerated to the heal at this time using a surgical shoe. The patient will remain in-house and Podiatry will continue to follow. The patient will continue to receive IV antibiotics while inpatient at the hospital. Upon discharge, the patient is to follow up in the clinic with Dr. Huffman within one week of discharge. Anahi Vargas Vikki Huffman DPM
[2018-06-14 08:01] LABS: BASO # 0.1 K/uL (0.0-0.2); BASO % 0.8 % (0.0-2.0); EOS # 0.2 K/uL (0.0-0.7); EOS % 3.6 % (0.0-4.0); LYMPH # 1.9 K/uL (1.0-4.3); LYMPH % 26.8 % (20.0-40.0); MEAN CELL VOLUME 88.9 fL (81.0-99.0); MEAN CORPUSCULAR HEMOGLOBIN 29.4 pg (27.0-31.0); MEAN CORPUSCULAR HGB CONC 33.1 g/dL (33.0-37.0); MEAN PLATELET VOLUME 8.4 fL (7.2-11.7); MONO # 0.7 K/uL (0.0-0.8); MONO % 10.5 % (0.0-10.0); NEUT # 4.1 K/uL (1.8-7.0); NEUT % 58.3 % (50.0-75.0); RBC 3.44 Mil/uL (3.80-5.20); RED CELL DISTRIBUTION WIDTH 13.9 % (11.5-14.5)
[2018-06-14 08:21] LABS: HEMOGLOBIN 10.1 g/dL (11.0-16.0)
[2018-06-14 08:38] LABS: ALB/GLOB RATIO 1.3 (1.0-2.1); ALBUMIN 3.5 g/dL (3.5-5.0); ALT/SGPT 33 U/L (9-52); AST/SGOT 17 U/L (14-36); BLOOD UREA NITROGEN 33 mg/dL (7-17); CALCIUM 9.4 mg/dl (8.6-10.4); GFR NON-AFRICAN AMERICAN > 60
[2018-06-14] MEDS: (Novolin R) Insulin Human Regular 100 units/ml vial SC SCH ×4 (08:47→21:47)
[2018-06-14] MEDS: Lactobacillus Acidophilus 500 MU Cap PO SCH ×2 (09:50→21:06)
[2018-06-14] MEDS: Folic Acid/Ascorbic Acid/Ferrous Sulfate 1 Tab PO SCH (09:50)
[2018-06-14] MEDS: Sodium Chloride 0.9% 1,000 ML IV SCH ×2 (10:15→23:27)
[2018-06-14 10:32] LABS: HEMOGLOBIN 10.2 g/dL (11.0-16.0); MEAN CELL VOLUME 90.1 fL (81.0-99.0); MEAN CORPUSCULAR HEMOGLOBIN 29.8 pg (27.0-31.0); MEAN CORPUSCULAR HGB CONC 33.1 g/dL (33.0-37.0); MEAN PLATELET VOLUME 8.1 fL (7.2-11.7); RBC 3.41 Mil/uL (3.80-5.20); RED CELL DISTRIBUTION WIDTH 14.1 % (11.5-14.5); WHITE BLOOD COUNT 6.7 K/uL (4.8-10.8)
--- NOTE | 2018-06-14 15:22 | CP.PCM.PN ---
Subjective - Date & Time of Evaluation Date of Evaluation: 06/14/18 Time of Evaluation: 14:50 - Subjective Subjective: dictated Objective - Vital Signs/Intake and Output Vital Signs (last 24 hours): Temp Pulse Resp BP Pulse Ox 98.4 F 88 20 98/65 L 97 06/14/18 00:00 06/14/18 00:00 06/14/18 00:00 06/14/18 00:00 06/14/18 00:00 - Medications Medications: Current Medications Acetaminophen (Tylenol 325mg Tab) 650 mg PO Q6 PRN PRN Reason: Fever >100.4 F Acetaminophen (Tylenol 650mg/20.3ml Solution Ud) 650 mg PO Q6 PRN PRN Reason: Pain, Mild (1-3) Ascorbic Ac/Ferrous Sulf/Folic Acid (Iberet-Folic 500) 1 ter PO DAILY [facility] Last Admin: 06/14/18 09:50 Dose: 1 ter Dextrose (Dextrose 50% Inj) 0 ml IVP .STAT PRN; Protocol PRN Reason: Hypoglycemia Protocol Dextrose (Glutose 15) 0 gm PO .ONCE PRN; Protocol PRN Reason: Hypoglycemia Protocol Gabapentin (Neurontin) 300 mg PO BID [facility] Last Admin: 06/14/18 09:50 Dose: 300 mg Glucagon (Glucagen Diagnostic Kit) 0 mg IM .STAT PRN; Protocol PRN Reason: Hypoglycemia Protocol Meropenem 500 mg/ Sodium (Chloride) 100 mls @ 100 mls/hr IVPB Q8H [facility]; Protocol Last Admin: 06/14/18 15:00 Dose: 100 mls/hr Vancomycin/Sodium Chloride (Vancomycin 1 Gm/Ns 200 Ml) 1 gm in 200 mls @ 166.6 mls/hr IVPB Q12H [facility]; Protocol Stop: 06/17/18 01:01 Last Admin: 06/14/18 12:44 Dose: 166.6 mls/hr Dextrose (Dextrose 5% In Water 1000 Ml) 1,000 mls @ 0 mls/hr IV .Q0M PRN; Protocol PRN Reason: Hypoglycemia Protocol Sodium Chloride (Sodium Chloride 0.9%) 1,000 mls @ 100 mls/hr IV .Q10H [facility] Last Admin: 06/14/18 10:15 Dose: 100 mls/hr Insulin Human Regular (Novolin R) 0 unit SC ACHS [facility]; Protocol Last Admin: 06/14/18 12:29 Dose: Not Given Lactobacillus Acidophilus (Bacid Acidophilus) 1 cap PO BID [facility] Last Admin: 06/14/18 09:50 Dose: 1 cap Lisinopril (Zestril) 2.5 mg PO DAILY [facility] Last Admin: 06/14/18 09:54 Dose: Not Given Morphine Sulfate (Morphine) 1 mg IVP Q6H PRN PRN Reason: Pain, severe (8-10) Last Admin: 06/13/18 23:58 Dose: 1 mg Nicotine (Nicoderm Cq) 1 patch TD DAILY [facility] Last Admin: 06/14/18 09:50 Dose: 1 patch Oxycodone/Acetaminophen (Percocet 5/325 Mg Tab) 1 tab PO Q6H PRN PRN Reason: Pain, moderate (4-7) Stop: 06/16/18 10:13 Paroxetine HCl (Paxil) 20 mg PO DAILY [facility] Last Admin: 06/14/18 09:50 Dose: 20 mg Rosuvastatin Calcium (Crestor) 10 mg PO HS [facility] Last Admin: 06/13/18 22:22 Dose: 10 mg Topiramate (Topamax) 25 mg PO DAILY [facility] Last Admin: 06/14/18 09:50 Dose: 25 mg - Labs Labs: 06/14/18 10:27 06/14/18 07:49 PT 11.2 SECONDS (9.7-12.2) 06/10/18 07:01 INR 1.0 06/10/18 07:01 APTT 32 SECONDS (21-34) D 06/08/18 06:57
--- NOTE | 2018-06-14 15:27 | CP.PCM.PN ---
<Marc Juarez - Last Filed: 06/14/18 20:25> Subjective - Date & Time of Evaluation Date of Evaluation: 06/14/18 Time of Evaluation: 15:27 - Subjective Subjective: Marc Juarez PGY-1, Medicine progress note for Dr. Carrillo Pt seen and examined at bedside. Pt is resting comfortably, but states that she still has right foot pain. Pt is POD #1, s/p I+D of R foot abscess performed by Dr. Huffman. Pt denies headache, fever, chills, chest pain, SOB, abdominal pain, n/v/d, denies any hemoptysis, vaginal bleeding, hematochezia, melena. A 12-point ROS was reviewed and is otherwise unremarkable. Objective - Vital Signs/Intake and Output Vital Signs (last 24 hours): Temp Pulse Resp BP Pulse Ox 98.4 F 88 20 98/65 L 97 06/14/18 00:00 06/14/18 00:00 06/14/18 00:00 06/14/18 00:00 06/14/18 00:00 - Medications Medications: Current Medications Acetaminophen (Tylenol 325mg Tab) 650 mg PO Q6 PRN PRN Reason: Fever >100.4 F Acetaminophen (Tylenol 650mg/20.3ml Solution Ud) 650 mg PO Q6 PRN PRN Reason: Pain, Mild (1-3) Ascorbic Ac/Ferrous Sulf/Folic Acid (Iberet-Folic 500) 1 ter PO DAILY [facility] Last Admin: 06/14/18 09:50 Dose: 1 ter Dextrose (Dextrose 50% Inj) 0 ml IVP .STAT PRN; Protocol PRN Reason: Hypoglycemia Protocol Dextrose (Glutose 15) 0 gm PO .ONCE PRN; Protocol PRN Reason: Hypoglycemia Protocol Gabapentin (Neurontin) 300 mg PO BID [facility] Last Admin: 06/14/18 09:50 Dose: 300 mg Glucagon (Glucagen Diagnostic Kit) 0 mg IM .STAT PRN; Protocol PRN Reason: Hypoglycemia Protocol Meropenem 500 mg/ Sodium (Chloride) 100 mls @ 100 mls/hr IVPB Q8H [facility]; Protocol Last Admin: 06/14/18 15:00 Dose: 100 mls/hr Vancomycin/Sodium Chloride (Vancomycin 1 Gm/Ns 200 Ml) 1 gm in 200 mls @ 166.6 mls/hr IVPB Q12H [facility]; Protocol Stop: 06/17/18 01:01 Last Admin: 06/14/18 12:44 Dose: 166.6 mls/hr Dextrose (Dextrose 5% In Water 1000 Ml) 1,000 mls @ 0 mls/hr IV .Q0M PRN; Protocol PRN Reason: Hypoglycemia Protocol Sodium Chloride (Sodium Chloride 0.9%) 1,000 mls @ 100 mls/hr IV .Q10H [facility] Last Admin: 06/14/18 10:15 Dose: 100 mls/hr Insulin Human Regular (Novolin R) 0 unit SC ACHS [facility]; Protocol Last Admin: 06/14/18 12:29 Dose: Not Given Lactobacillus Acidophilus (Bacid Acidophilus) 1 cap PO BID [facility] Last Admin: 06/14/18 09:50 Dose: 1 cap Lisinopril (Zestril) 2.5 mg PO DAILY [facility] Last Admin: 06/14/18 09:54 Dose: Not Given Morphine Sulfate (Morphine) 1 mg IVP Q6H PRN PRN Reason: Pain, severe (8-10) Last Admin: 06/13/18 23:58 Dose: 1 mg Nicotine (Nicoderm Cq) 1 patch TD DAILY [facility] Last Admin: 06/14/18 09:50 Dose: 1 patch Oxycodone/Acetaminophen (Percocet 5/325 Mg Tab) 1 tab PO Q6H PRN PRN Reason: Pain, moderate (4-7) Stop: 06/16/18 10:13 Paroxetine HCl (Paxil) 20 mg PO DAILY [facility] Last Admin: 06/14/18 09:50 Dose: 20 mg Rosuvastatin Calcium (Crestor) 10 mg PO HS [facility] Last Admin: 06/13/18 22:22 Dose: 10 mg Topiramate (Topamax) 25 mg PO DAILY [facility] Last Admin: 06/14/18 09:50 Dose: 25 mg - Labs Labs: 06/14/18 10:27 06/14/18 07:49 PT 11.2 SECONDS (9.7-12.2) 06/10/18 07:01 INR 1.0 06/10/18 07:01 APTT 32 SECONDS (21-34) D 06/08/18 06:57 - Constitutional Appears: Non-toxic, No Acute Distress - Head Exam Head Exam: ATRAUMATIC, NORMAL INSPECTION - Eye Exam Eye Exam: EOMI, Normal appearance - ENT Exam ENT Exam: Mucous Membranes Moist - Neck Exam Neck Exam: Normal Inspection - Respiratory Exam Respiratory Exam: NORMAL BREATHING PATTERN. absent: Rhonchi, Wheezes, Respir atory Distress - Cardiovascular Exam Cardiovascular Exam: REGULAR RHYTHM, +S1, +S2 - GI/Abdominal Exam GI & Abdominal Exam: Soft, Normal Bowel Sounds. absent: Tenderness - Extremities Exam Extremities Exam: Normal Capillary Refill, Pedal Edema ((+) 1+ pitting edema to the distal right LE) Additional comments: (+) Right foot with dresing, daniel bandage and ortho shoe; elevated; moderate tenderness to the distal denson, patient is able to move all toes, and sensation is intact (+) dry, nontender, chronic ulcer to the left plantar foot - Back Exam Back Exam: NORMAL INSPECTION - Neurological Exam Neurological Exam: Alert, Awake, Oriented x3 - Skin Skin Exam: Dry, Intact, Normal Color, Warm Additional comments: (+) right subclavian picc line in place, C/D/I; no signs of infection, bleeding or hematoma, (-) tenderness Assessment and Plan - Assessment and Plan (Free Text) Assessment: 62 year old female with a past medical history of depression, diabetes, hypertension, and hyperlipidemia admitted for evaluation and treatment of bilateral non-healing diabetic foot ulceration leading to osteomyelitis of the right foot. S/p I+D of R foot abscess by Dr. Huffman POD#1 Plan: Diabetic Foot Ulcers - ED: Tylenol, Cefazolin, Vancomycin x2, Toradol, Fluid Bolus. 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 1.8cm abscess laterally adjacent to 1st metatarsal head. Acute osteomyelitis within the 1st metatarsal, and at 2nd proximal phalanx. Mild fraying consistent with low grade sprained ankle or partial tear. Prominent degen changes in the midfoot with bony spurring and osteochondral changes - MRI L LE (06/07): cellulitis, early osteomyelitis at 1st distal phalanx. Milder reticulation, possible cellulitis at the 2nd digit. Osteochondral changes. Low grade sprained ankle or partial tear. - wound Cx (06/05): Pseudomonas Aerugenousa, Klebsiella Oxytoca, both sensitive to Merrem. Streptococcus Viridans, without associated antibiotic correlation; empirically covered by vancomycin - blood Cx (06/05) negative at 72 hours. PICC/midline placement for residential abx for osteomyelitis consent obtained - CXR (06/09): negative for acute pathology, PICC line in place - Podiatry consulted: Dr. Nathanael pereira appreciated - wound cleansed with betadine/saline flush; redressed with betadine/DSD - S/p I+D of R foot abscess on 06/13/18 - will continue to follow - podiatry resident is aware of MRI findings on left LE, states pt will follow up outpatient; no acute intervention at this time - ID consulted: Dr. Amadeo pereira appreciated - cont IV abx - will continue to follow - continue Vancomycin 1gm IVPB q12 (started 06/05) - continue Zosyn 3.375gm IVPB q6 (06/06-06/07) stopped d/t poor sensitivity - continue Merrem 500mg IVPB q8 (started 06/07) - Morphine 1mg IVP q6 prn - Vitamin C 500mg po daily Sepsis likely due to osteomyelitis; resolved - Fever: Tmax - 06/05 @ 2024: 101.3F, WBC 11.6, HR 108 - VBG lactate: 3.2 -> 1.0 - CXR (06/05): mild venous congestion; negative for acute disease process - urine Cx (06/05): negative - blood Cx (06/05): negative @ 72 hours - abx as above: Vancomycin and Merrem - Tylenol 650mg po q6 prn for fever > 100.4F Right Lower Ext. Swelling - US RLE venous Doppler (06/06): negative - continue to monitor swelling Hx of Hyperlipidemia - home Simvastatin 40mg -> Crestor 10mg po HS Hx of DM2 requiring insulinw/ neuropathy - HgbA1c is 7.0 - ISS medium ACHS - currently well controlled (150s) on ISS without basal insulin Hx of Diabetic neuropathy - home Topiramate 25mg po daily, Gabapentin 300mg po bid - Lisinopril 2.5mg po daily for renal protection Hx of depression - home Paxil 20mg po daily Constipation - continue Colace 100 mg po TID Hx of HTN - continue lisinopril Tobacco use - Nicotine 7mg/24hr 1 patch TD daily - counseled on cessation PPx, Diet, Disposition - DVT: Heparin 5000u sc q8, SCDs CI d/t LE swelling - GI: not indicated at this time - CCD - Dispo: Patient s/p I&D on 06/13 at 7:45 with podiatry; POD#1, doing well post- procedure. Pending Celine MONTEJO. Case was reviewed and discussed with attending physician, Dr. Carrillo. Marc Juarez PGY-1 <Sakina Carrillo V - Last Filed: 06/15/18 17:05> Objective - Vital Signs/Intake and Output Vital Signs (last 24 hours): Temp Pulse Resp BP Pulse Ox 98.2 F 66 20 103/68 100 06/15/18 15:56 06/15/18 15:56 06/15/18 15:56 06/15/18 15:56 06/15/18 15:56 Intake and Output: 06/15/18 06/15/18 06:59 18:59 Intake Total 1300 950 Balance 1300 950 - Medications Medications: Current Medications Acetaminophen (Tylenol 325mg Tab) 650 mg PO Q6 PRN PRN Reason: Fever >100.4 F Acetaminophen (Tylenol 650mg/20.3ml Solution Ud) 650 mg PO Q6 PRN PRN Reason: Pain, Mild (1-3) Ascorbic Ac/Ferrous Sulf/Folic Acid (Iberet-Folic 500) 1 ter PO DAILY [facility] Last Admin: 06/15/18 09:53 Dose: 1 ter Dextrose (Dextrose 50% Inj) 0 ml IVP .STAT PRN; Protocol PRN Reason: Hypoglycemia Protocol Dextrose (Glutose 15) 0 gm PO .ONCE PRN; Protocol PRN Reason: Hypoglycemia Protocol Gabapentin (Neurontin) 300 mg PO BID [facility] Last Admin: 06/15/18 09:51 Dose: 300 mg Glucagon (Glucagen Diagnostic Kit) 0 mg IM .STAT PRN; Protocol PRN Reason: Hypoglycemia Protocol Meropenem 500 mg/ Sodium (Chloride) 100 mls @ 100 mls/hr IVPB Q8H [facility]; Protocol Last Admin: 06/15/18 14:54 Dose: 100 mls/hr Vancomycin/Sodium Chloride (Vancomycin 1 Gm/Ns 200 Ml) 1 gm in 200 mls @ 166.6 mls/hr IVPB Q12H [facility]; Protocol Stop: 06/17/18 01:01 Last Admin: 06/15/18 12:32 Dose: 166.6 mls/hr Dextrose (Dextrose 5% In Water 1000 Ml) 1,000 mls @ 0 mls/hr IV .Q0M PRN; Protocol PRN Reason: Hypoglycemia Protocol Sodium Chloride (Sodium Chloride 0.9%) 1,000 mls @ 100 mls/hr IV .Q10H [facility] Last Admin: 06/15/18 16:20 Dose: Not Given Insulin Human Regular (Novolin R) 0 unit SC ACHS [facility]; Protocol Last Admin: 06/15/18 12:32 Dose: 3 units Lactobacillus Acidophilus (Bacid Acidophilus) 1 cap PO BID [facility] Last Admin: 06/15/18 09:53 Dose: 1 cap Lisinopril (Zestril) 2.5 mg PO DAILY [facility] Last Admin: 06/15/18 09:55 Dose: Not Given Morphine Sulfate (Morphine) 1 mg IVP Q6H PRN PRN Reason: Pain, severe (8-10) Last Admin: 06/14/18 21:14 Dose: 1 mg Nicotine (Nicoderm Cq) 1 patch TD DAILY [facility] Last Admin: 06/15/18 09:53 Dose: 1 patch Oxycodone/Acetaminophen (Percocet 5/325 Mg Tab) 1 tab PO Q6H PRN PRN Reason: Pain, moderate (4-7) Stop: 06/16/18 10:13 Last Admin: 06/15/18 09:52 Dose: 1 tab Paroxetine HCl (Paxil) 20 mg PO DAILY [facility] Last Admin: 06/15/18 09:52 Dose: 20 mg Rosuvastatin Calcium (Crestor) 10 mg PO HS [facility] Last Admin: 06/14/18 21:06 Dose: 10 mg Topiramate (Topamax) 25 mg PO DAILY [facility] Last Admin: 06/15/18 09:52 Dose: 25 mg - Labs Labs: 06/15/18 07:23 06/15/18 07:23 PT 11.2 SECONDS (9.7-12.2) 06/10/18 07:01 INR 1.0 06/10/18 07:01 APTT 32 SECONDS (21-34) D 06/08/18 06:57 Attending/Attestation - Attestation I have personally seen and examined this patient.: Yes I have fully participated in the care of the patient.: Yes I have reviewed all pertinent clinical information, including history, physical exam and plan: Yes Notes (Text): This is a late computer entry for 06/14/2018 Patient seen, examined, case discussed with bio medical technician. This is a 62-year-old female with past medical history of depression, diabetes, hypertension, hyperlipidemia, and a chronic right diabetic foot ulcer noted over the right foot which prompted hospitalization presently. Patient seen postop day 1 right foot I&D. Pain is relatively controlled. Patient remains on IV antibiotics to cover for osteomyelitis we will need to follow-up with iodine terms of length of time in which antibiotics for preference. Patient has noted that she has required recent rehabilitation in her prior resections. I resident in full did follow-up with podiatry resident there is no plan intervention for the left foot at this time is considered pre-ulcerative. Given the EMR was not available to us, there was a concern about possible drop in hemoglobin postop from 12-10. We did start IV fluids once EMR returned was noted that hemoglobin stayed stable around the tendons no blood transfusion at this time. Hold DVT prophylaxis and monitor H&H if remains stable then will restart. Assessment/plan 1). Bilateral Diabetic Foot Ulcers with Osteomyelitis and Developing Abscesses Assessment/plan * Podiatry Dr. Huffman on board help appreciated * Patient seen by podiatry. Educated about the importance of surgical wound primarily drainage of the abscess. Patient agreeable to surgery plan. Patient scheduled for the OR June 13 7:45 AM. Preoperative/i ntraoperative/postoperative management per surgery. * Hold anticoagulation yesterday--> will need to follow-up with podiatry in terms of restarting DVT prophylaxis post procedure * Noted patient had 3 foot cultures obtained during or June 13 of the right foot which will need to be followed up * Infectious disease doctor Dr. Childs on board help appreciated * ID recommended to continue IV antibiotics, and that she is noncompliant with both food and medicine to for rehabilitation for her ostoeo mellitus. * Patient is on meropenem 500 mg IV every 8 hours since June 07 * Patient is on vancomycin 1 g IV every 12 since June 05 * Patient's right foot culture from June 05 noted for Pseudomonas, Klebsiella, and Klebsiella viridans. Pseudomonas is sensitive to meropenem. Kl ebsiella is sensitive to meropenem. Organism 3 does not have any associated antibiotic correlation. * Tibia-fibula right x-ray unremarkable * No DVT noted on venous Dopplers * Right lower extremity MRI from June 06: Noted for prior post resections of the first digit to the first metatarsal head noted prior resection of the second digit of the left proximal phalanx. Noted for loculated fluid intensity in the medial soft tissues around the first metatarsal head by 1.9 x 1.4 x 1.9 cm concerning for abscess. Concerning for second digit proximal phalanx for osteomyelitis. * Arterial Dopplers: Is no evidence of hemodynamically significant arterial insufficiency in the right lower extremity. There is no evidence of hemodynamically significant arterial insufficiency in the left lower extremity. * Left lower extremity MRI from June 07: Confluent reticulation and edema seen within the medial and volar subcutaneous soft tissues at the level of the first distal phalanx concerning for cellulitis and possible developing phlegmon use collection. Suggestion for also acute osteomyelitis as well. * Blood cultures from June 05 no growth after 5 days 2 * Urine culture from the also no growth * Noted patient had 3 foot cultures obtained during or June 13 of the right foot which will need to be followed up 2). Right Leg Edema: Venous Doppler Leg negative for DVT 3). Hx DM 2 requiring Insulin Assessment/plan * A1c 7.0 * Crestor 10 mg by mouth daily at bedtime * Lisinopril 2.5 mg once a day * Patient is currently not on any aspirin given that she is here for surgical intervention. * Sugars in the mid 150s * Regular insulin sliding scale medium * Gabapentin 300 mg by mouth twice a day 4). Hx HLD Assessment/plan * Crestor 10 mg by mouth daily at bedtime 5). Hx Diabetic Neuropathy Assessment/plan * Gabapentin 300mg PO BID * Topmax 25mg PO daily 6). Hx Depression Assessment/plan * Paxil 20 mg by mouth once a day 7). Hx HTN Assessment/plan * Lisinopril 2.5 mg once a day 8). Hx Nicotine Addiction * Nicoderm Patch transdermal once a day 9). Vaginal Itching: * Diflucan x 1 dose 06/10/18 * No complaints for vaginal itching during my into today. 10. Prophylactic measure * Heparin to be discontinued in anticipation for surgery with podiatry: We'll need to follow-up with podiatry to see when we can restart DVT prophylaxis and aspirin. Concern for possible H&H drop during procedure noted once EMR returned H&H is relatively in the ten. We'll resume DVT prophylaxis tomorrow Disposition: Patient status post day 1 for right foot I&D given phlegmon is changes in the MRI. There is no plan intervention for the left foot at this time podiatry is aware. Patient will ultimately need to be set up for rehabilitation for long-term IV antibiotics we will need to follow-up with infectious disease in terms of recommendations for antibiotics for discharge planning when patient is ready for rehabilitation placement. Noted patient had 3 foot cultures obtained during or June 13 of the right foot which will need to be followed up.
--- NOTE | 2018-06-14 16:48 | CP.PCM.PN ---
Subjective - Date & Time of Evaluation Date of Evaluation: 06/14/18 Time of Evaluation: 16:42 - Subjective Subjective: Podiatry Progress note: Dr. Huffman 62 year old female patient evaluated 1 day s/p right foot I&D and partial 1st ray resection. Patient is resting comfortably in bed, AAOx3 and appears in no acute distress. Denies of any acute overnight events. At rest, denies of pain. Reports that she has been sitting with her legs down on the bed. Denies of recent F/N/V/C/SOB/CP/headache. No other pedal complains. Objective - Vital Signs/Intake and Output Vital Signs (last 24 hours): Temp Pulse Resp BP Pulse Ox 98.4 F 88 20 98/65 L 97 06/14/18 00:00 06/14/18 00:00 06/14/18 00:00 06/14/18 00:00 06/14/18 00:00 - Medications Medications: Current Medications Acetaminophen (Tylenol 325mg Tab) 650 mg PO Q6 PRN PRN Reason: Fever >100.4 F Acetaminophen (Tylenol 650mg/20.3ml Solution Ud) 650 mg PO Q6 PRN PRN Reason: Pain, Mild (1-3) Ascorbic Ac/Ferrous Sulf/Folic Acid (Iberet-Folic 500) 1 ter PO DAILY [facility] Last Admin: 06/14/18 09:50 Dose: 1 ter Dextrose (Dextrose 50% Inj) 0 ml IVP .STAT PRN; Protocol PRN Reason: Hypoglycemia Protocol Dextrose (Glutose 15) 0 gm PO .ONCE PRN; Protocol PRN Reason: Hypoglycemia Protocol Gabapentin (Neurontin) 300 mg PO BID [facility] Last Admin: 06/14/18 09:50 Dose: 300 mg Glucagon (Glucagen Diagnostic Kit) 0 mg IM .STAT PRN; Protocol PRN Reason: Hypoglycemia Protocol Meropenem 500 mg/ Sodium (Chloride) 100 mls @ 100 mls/hr IVPB Q8H [facility]; Protocol Last Admin: 06/14/18 15:00 Dose: 100 mls/hr Vancomycin/Sodium Chloride (Vancomycin 1 Gm/Ns 200 Ml) 1 gm in 200 mls @ 166.6 mls/hr IVPB Q12H [facility]; Protocol Stop: 06/17/18 01:01 Last Admin: 06/14/18 12:44 Dose: 166.6 mls/hr Dextrose (Dextrose 5% In Water 1000 Ml) 1,000 mls @ 0 mls/hr IV .Q0M PRN; Protocol PRN Reason: Hypoglycemia Protocol Sodium Chloride (Sodium Chloride 0.9%) 1,000 mls @ 100 mls/hr IV .Q10H [facility] Last Admin: 06/14/18 10:15 Dose: 100 mls/hr Insulin Human Regular (Novolin R) 0 unit SC ACHS [facility]; Protocol Last Admin: 06/14/18 12:29 Dose: Not Given Lactobacillus Acidophilus (Bacid Acidophilus) 1 cap PO BID [facility] Last Admin: 06/14/18 09:50 Dose: 1 cap Lisinopril (Zestril) 2.5 mg PO DAILY [facility] Last Admin: 06/14/18 09:54 Dose: Not Given Morphine Sulfate (Morphine) 1 mg IVP Q6H PRN PRN Reason: Pain, severe (8-10) Last Admin: 06/13/18 23:58 Dose: 1 mg Nicotine (Nicoderm Cq) 1 patch TD DAILY [facility] Last Admin: 06/14/18 09:50 Dose: 1 patch Oxycodone/Acetaminophen (Percocet 5/325 Mg Tab) 1 tab PO Q6H PRN PRN Reason: Pain, moderate (4-7) Stop: 06/16/18 10:13 Paroxetine HCl (Paxil) 20 mg PO DAILY [facility] Last Admin: 06/14/18 09:50 Dose: 20 mg Rosuvastatin Calcium (Crestor) 10 mg PO HS [facility] Last Admin: 06/13/18 22:22 Dose: 10 mg Topiramate (Topamax) 25 mg PO DAILY [facility] Last Admin: 06/14/18 09:50 Dose: 25 mg - Labs Labs: 06/14/18 10:27 06/14/18 07:49 PT 11.2 SECONDS (9.7-12.2) 06/10/18 07:01 INR 1.0 06/10/18 07:01 APTT 32 SECONDS (21-34) D 06/08/18 06:57 - Constitutional Appears: Well, Non-toxic, No Acute Distress - Extremities Exam Additional comments: VASC: DP and PT 2/4 bilaterally, CFT less than 3 seconds x 9, TG warm to cool from proximal to distal, no pitting or non-pitting edema noted NEURO: diminished protective sensation to bilateral lower extremity DERM: Right foot: Surgical site appears well coapted with no dehiscence, no active drainage, no malodor, marcela-surgical site appears mildly macerated, no erythema, no edema, no clinical suspicion of active infection Left Foot- pre-ulcerative lesion measuring 3 cm X 4 cm present to submet 1 on the left foot with marcela-wound erythema, hyperkeratotic marcela-wound border with hyperpigmentation, no drainage, no clinical signs of infection to the left foot ORTHO: mild pain on palpation at the surgical site, previous amputation of right 2nd digit - Neurological Exam Neurological Exam: Alert, Awake, Oriented x3 - Psychiatric Exam Psychiatric exam: Normal Affect, Normal Mood Assessment and Plan - Assessment and Plan (Free Text) Assessment: 62 year old female with 1. 1 day s/p right foot I&D and partial 1st ray amputation 2. 2nd digit tip ulceration with osteomyelitis (+) 3. L foot preulcerative lesion sub-metatarsal 1 Plan: Patient seen and evaluated Plan discussed with attending Dr. Huffman Labs, vitals and charts reviewed - No leukocytosis; afebrile Pre-op Foot X-ray 06/05: soft tissue defect plantar submet 1, partial 1st ray amp with osteolytic changes to the stump, periostel changes, no signs of soft tissue emphysema Pre-op Tib-Fib X-ray 06/05: no signs of soft tissue emphysema Pre-op MRI- Increase in signal intensity along the shaft of the 1st metatarsal on T2 image consistent with OM Pre-op Wound Cultures- Pseudomonas Aeruginosa, Klebsiella oxytoca, Strep. viridans Infectious Disease consult- recommendations appreciated - Patient to continue IV Abx as per ID Intra-op wound cultures- pending Intra-op proximal bone margin - pending report Surgical site cleansed with saline flush and dressed with betadine/DSD Remain WBAT to the heel in surgical shoe Podiatry will follow patient while in house
[2018-06-15] MEDS: Vancomycin 1 gm/NS 200 ml 1 GM/200 ML BAG IVPB SCH ×2 (01:14→12:32)
--- NOTE | 2018-06-15 02:59 | PN ---
DATE: 06/14/2018 SUBJECTIVE: The patient was still having some right foot pain. She had abscess drain. She still has a dressing, and when I went to see, her she was drowsy as she just received pain medication. PHYSICAL EXAMINATION: VITAL SIGNS: T-max is 98.4, pulse 80, blood pressure 100/68, respirations are 20. HEENT: Atraumatic and normocephalic. NECK: Supple. LUNGS: Clear. HEART: S1, S2 regular. ABDOMEN: Soft. Nontender. No guarding. No rigidity present. EXTREMITIES: Right foot had dressing and left foot also has a dressing. LABORATORY DATA: White count is 6.7, hemoglobin 10.2. BUN is 33, creatinine is 0.9. Micro cultures, there was nothing new that grew from the right foot. They have been negative. There are three cultures from 06/13/2018, all are negative, 24 hours. The patient remains on vancomycin and meropenem at this time, and I have continued those treatments, and we will follow. I do not see vancomycin 1 g to make sure Merrem is there. The patient came in with diabetic foot ulcers, with osteomyelitis, and abscess formation and has a PICC line, is status post I and D, still with pain, and Podiatry is following. We will follow. Alessia Childs MD
[2018-06-15] MEDS: Meropenem 500 MG in Sodium Chloride 0.9% 100 ML IVPB SCH ×2 (06:05→14:54)
[2018-06-15 07:33] LABS: BASO % 0.8 % (0.0-2.0); EOS # 0.2 K/uL (0.0-0.7); EOS % 4.4 % (0.0-4.0); LYMPH # 2.1 K/uL (1.0-4.3); LYMPH % 37.3 % (20.0-40.0); MEAN CELL VOLUME 90.6 fL (81.0-99.0); MEAN CORPUSCULAR HEMOGLOBIN 29.3 pg (27.0-31.0); MEAN CORPUSCULAR HGB CONC 32.3 g/dL (33.0-37.0); MEAN PLATELET VOLUME 8.6 fL (7.2-11.7); MONO # 0.6 K/uL (0.0-0.8); MONO % 11.5 % (0.0-10.0); NEUT # 2.6 K/uL (1.8-7.0); RBC 3.42 Mil/uL (3.80-5.20); WHITE BLOOD COUNT 5.6 K/uL (4.8-10.8)
[2018-06-15] MEDS: (Novolin R) Insulin Human Regular 100 units/ml vial SC SCH ×4 (07:51→21:25)
[2018-06-15 08:02] LABS: ALB/GLOB RATIO 1.2 (1.0-2.1); ALBUMIN 3.4 g/dL (3.5-5.0); ALT/SGPT 41 U/L (9-52); AST/SGOT 20 U/L (14-36); BLOOD UREA NITROGEN 25 mg/dL (7-17); CALCIUM 9.5 mg/dl (8.6-10.4); GFR NON-AFRICAN AMERICAN > 60
[2018-06-15] MEDS: Oxycodone/Acetaminophen 5/325 mg Tab PO PRN ×2 (09:52→17:12)
[2018-06-15] MEDS: Folic Acid/Ascorbic Acid/Ferrous Sulfate 1 Tab PO SCH (09:53)
[2018-06-15] MEDS: Lactobacillus Acidophilus 500 MU Cap PO SCH ×2 (09:53→17:05)
[2018-06-15] MEDS: Sodium Chloride 0.9% 1,000 ML IV SCH ×2 (12:37→16:20)
--- NOTE | 2018-06-15 12:57 | CARD ---
APPROVED REPORT Date of service: 06/05/2018 EKG Measurement Heart [id number] <Conclusion> Normal sinus rhythm Normal ECG
--- NOTE | 2018-06-15 17:34 | CP.PCM.PN ---
Subjective - Date & Time of Evaluation Date of Evaluation: 06/15/18 Time of Evaluation: 09:50 - Subjective Subjective: Podiatry Progress note: Dr. Huffman 62 year old female patient evaluated 2 day s/p right foot I&D and partial 1st ray resection. Patient is resting comfortably in bed, AAOx3 and appears in no acute distress. Denies of any acute overnight events. At rest, denies of pain. Reports that she has been sitting with her legs down on the bed. Denies of recent F/N/V/C/SOB/CP/headache. No other pedal complains. Objective - Vital Signs/Intake and Output Vital Signs (last 24 hours): Temp Pulse Resp BP Pulse Ox 98.2 F 66 20 103/68 100 06/15/18 15:56 06/15/18 15:56 06/15/18 15:56 06/15/18 15:56 06/15/18 15:56 Intake and Output: 06/15/18 06/15/18 06:59 18:59 Intake Total 1300 950 Balance 1300 950 - Medications Medications: Current Medications Acetaminophen (Tylenol 325mg Tab) 650 mg PO Q6 PRN PRN Reason: Fever >100.4 F Acetaminophen (Tylenol 650mg/20.3ml Solution Ud) 650 mg PO Q6 PRN PRN Reason: Pain, Mild (1-3) Ascorbic Ac/Ferrous Sulf/Folic Acid (Iberet-Folic 500) 1 ter PO DAILY [facility] Last Admin: 06/15/18 09:53 Dose: 1 ter Dextrose (Dextrose 50% Inj) 0 ml IVP .STAT PRN; Protocol PRN Reason: Hypoglycemia Protocol Dextrose (Glutose 15) 0 gm PO .ONCE PRN; Protocol PRN Reason: Hypoglycemia Protocol Gabapentin (Neurontin) 300 mg PO BID [facility] Last Admin: 06/15/18 17:05 Dose: 300 mg Glucagon (Glucagen Diagnostic Kit) 0 mg IM .STAT PRN; Protocol PRN Reason: Hypoglycemia Protocol Heparin Sodium (Porcine) (Heparin) 5,000 units SC Q8 [facility] Meropenem 500 mg/ Sodium (Chloride) 100 mls @ 100 mls/hr IVPB Q8H [facility]; Protocol Last Admin: 06/15/18 14:54 Dose: 100 mls/hr Vancomycin/Sodium Chloride (Vancomycin 1 Gm/Ns 200 Ml) 1 gm in 200 mls @ 166.6 mls/hr IVPB Q12H [facility]; Protocol Stop: 06/17/18 01:01 Last Admin: 06/15/18 12:32 Dose: 166.6 mls/hr Dextrose (Dextrose 5% In Water 1000 Ml) 1,000 mls @ 0 mls/hr IV .Q0M PRN; Protocol PRN Reason: Hypoglycemia Protocol Sodium Chloride (Sodium Chloride 0.9%) 1,000 mls @ 100 mls/hr IV .Q10H [facility] Last Admin: 06/15/18 16:20 Dose: Not Given Insulin Human Regular (Novolin R) 0 unit SC ACHS [facility]; Protocol Last Admin: 06/15/18 17:05 Dose: 2 units Lactobacillus Acidophilus (Bacid Acidophilus) 1 cap PO BID [facility] Last Admin: 06/15/18 17:05 Dose: 1 cap Lisinopril (Zestril) 2.5 mg PO DAILY [facility] Last Admin: 06/15/18 09:55 Dose: Not Given Morphine Sulfate (Morphine) 1 mg IVP Q6H PRN PRN Reason: Pain, severe (8-10) Last Admin: 06/14/18 21:14 Dose: 1 mg Nicotine (Nicoderm Cq) 1 patch TD DAILY [facility] Last Admin: 06/15/18 09:53 Dose: 1 patch Oxycodone/Acetaminophen (Percocet 5/325 Mg Tab) 1 tab PO Q6H PRN PRN Reason: Pain, moderate (4-7) Stop: 06/16/18 10:13 Last Admin: 06/15/18 17:12 Dose: 1 tab Paroxetine HCl (Paxil) 20 mg PO DAILY [facility] Last Admin: 06/15/18 09:52 Dose: 20 mg Rosuvastatin Calcium (Crestor) 10 mg PO HS [facility] Last Admin: 06/14/18 21:06 Dose: 10 mg Topiramate (Topamax) 25 mg PO DAILY [facility] Last Admin: 06/15/18 09:52 Dose: 25 mg - Labs Labs: 06/15/18 07:23 06/15/18 07:23 PT 11.2 SECONDS (9.7-12.2) 06/10/18 07:01 INR 1.0 06/10/18 07:01 APTT 32 SECONDS (21-34) D 06/08/18 06:57 - Constitutional Appears: Well, Non-toxic, No Acute Distress - Head Exam Head Exam: ATRAUMATIC, NORMOCEPHALIC - Extremities Exam Additional comments: VASC: DP and PT 2/4 bilaterally, CFT less than 3 seconds x 9, TG warm to cool from proximal to distal, no pitting or non-pitting edema noted NEURO: diminished protective sensation to bilateral lower extremity DERM: Right foot: Surgical site appears well coapted with no dehiscence, no active drainage, no malodor, marcela-surgical site appears mildly macerated, no erythema, no edema, no clinical suspicion of active infection Left Foot- pre-ulcerative lesion measuring 3 cm X 4 cm present to submet 1 on the left foot with marcela-wound erythema, hyperkeratotic marcela-wound border with hyperpigmentation, no drainage, no clinical signs of infection to the left foot ORTHO: mild pain on palpation at the surgical site, previous amputation of right 2nd digit - Neurological Exam Neurological Exam: Alert, Awake, Oriented x3 - Psychiatric Exam Psychiatric exam: Normal Affect, Normal Mood Assessment and Plan - Assessment and Plan (Free Text) Assessment: 62 year old female with 1. 2 day s/p right foot I&D and partial 1st ray amputa tion 2. 2nd digit tip ulceration with osteomyelitis (+) 3. L foot preulcerative lesion sub-metatarsal 1 Plan: Patient seen and evaluated Plan discussed with attending Dr. Huffman Labs, vitals and charts reviewed - No leukocytosis; afebrile Pre-op Foot X-ray 06/05: soft tissue defect plantar submet 1, partial 1st ray amp with osteolytic changes to the stump, periostel changes, no signs of soft tissue emphysema Pre-op Tib-Fib X-ray 06/05: no signs of soft tissue emphysema Pre-op MRI- Increase in signal intensity along the shaft of the 1st metatarsal on T2 image consistent with OM Pre-op Wound Cultures- Pseudomonas Aeruginosa, Klebsiella oxytoca, Strep. viridans Infectious Disease consult- recommendations appreciated - Patient to continue IV Abx as per ID Intra-op wound cultures- pending Intra-op proximal bone margin - pending report Surgical site cleansed with saline flush and dressed with betadine/DSD Remain WBAT to the heel in surgical shoe Understands protocol once goes home - will follow up with Dr. Huffman in her clinic - waiting on culture results Podiatry will follow patient while in house
--- NOTE | 2018-06-15 19:30 | CP.PCM.PN ---
Subjective - Date & Time of Evaluation Date of Evaluation: 06/15/18 Time of Evaluation: 09:30 - Subjective Subjective: Progress Note for Hospitalist Service Pt seen and examined at bedside this am. Observed ambulating from bed to bathroom without assistance and concerns. Wearing boot over affected area of R foot abcess. Only c/o pain when she steps on the affected foot. Otherwise denies any acute complaints. Pt required morphine overnight for the pain but also instructed to ask Percocet if needed for the pain instead first. Denies headache, dizziness, fever, chills, chest pain, sob, n/v/d/c, abd pain, urinary complaints, active bleeding or other symptoms. Objective - Vital Signs/Intake and Output Vital Signs (last 24 hours): Temp Pulse Resp BP Pulse Ox 98.2 F 66 20 103/68 100 06/15/18 15:56 06/15/18 15:56 06/15/18 15:56 06/15/18 15:56 06/15/18 15:56 Intake and Output: 06/15/18 06/16/18 18:59 06:59 Intake Total 950 Balance 950 - Medications Medications: Current Medications Acetaminophen (Tylenol 325mg Tab) 650 mg PO Q6 PRN PRN Reason: Fever >100.4 F Acetaminophen (Tylenol 650mg/20.3ml Solution Ud) 650 mg PO Q6 PRN PRN Reason: Pain, Mild (1-3) Ascorbic Ac/Ferrous Sulf/Folic Acid (Iberet-Folic 500) 1 ter PO DAILY [facility] Last Admin: 06/15/18 09:53 Dose: 1 ter Dextrose (Dextrose 50% Inj) 0 ml IVP .STAT PRN; Protocol PRN Reason: Hypoglycemia Protocol Dextrose (Glutose 15) 0 gm PO .ONCE PRN; Protocol PRN Reason: Hypoglycemia Protocol Gabapentin (Neurontin) 300 mg PO BID [facility] Last Admin: 06/15/18 17:05 Dose: 300 mg Glucagon (Glucagen Diagnostic Kit) 0 mg IM .STAT PRN; Protocol PRN Reason: Hypoglycemia Protocol Heparin Sodium (Porcine) (Heparin) 5,000 units SC Q8 [facility] Meropenem 500 mg/ Sodium (Chloride) 100 mls @ 100 mls/hr IVPB Q8H [facility]; Protocol Last Admin: 06/15/18 14:54 Dose: 100 mls/hr Vancomycin/Sodium Chloride (Vancomycin 1 Gm/Ns 200 Ml) 1 gm in 200 mls @ 166.6 mls/hr IVPB Q12H [facility]; Protocol Stop: 06/17/18 01:01 Last Admin: 06/15/18 12:32 Dose: 166.6 mls/hr Dextrose (Dextrose 5% In Water 1000 Ml) 1,000 mls @ 0 mls/hr IV .Q0M PRN; Protocol PRN Reason: Hypoglycemia Protocol Sodium Chloride (Sodium Chloride 0.9%) 1,000 mls @ 100 mls/hr IV .Q10H [facility] Last Admin: 06/15/18 16:20 Dose: Not Given Insulin Human Regular (Novolin R) 0 unit SC ACHS [facility]; Protocol Last Admin: 06/15/18 17:05 Dose: 2 units Lactobacillus Acidophilus (Bacid Acidophilus) 1 cap PO BID [facility] Last Admin: 06/15/18 17:05 Dose: 1 cap Lisinopril (Zestril) 2.5 mg PO DAILY [facility] Last Admin: 06/15/18 09:55 Dose: Not Given Morphine Sulfate (Morphine) 1 mg IVP Q6H PRN PRN Reason: Pain, severe (8-10) Last Admin: 06/14/18 21:14 Dose: 1 mg Nicotine (Nicoderm Cq) 1 patch TD DAILY [facility] Last Admin: 06/15/18 09:53 Dose: 1 patch Oxycodone/Acetaminophen (Percocet 5/325 Mg Tab) 1 tab PO Q6H PRN PRN Reason: Pain, moderate (4-7) Stop: 06/16/18 10:13 Last Admin: 06/15/18 17:12 Dose: 1 tab Paroxetine HCl (Paxil) 20 mg PO DAILY [facility] Last Admin: 06/15/18 09:52 Dose: 20 mg Rosuvastatin Calcium (Crestor) 10 mg PO HS [facility] Last Admin: 06/14/18 21:06 Dose: 10 mg Topiramate (Topamax) 25 mg PO DAILY [facility] Last Admin: 06/15/18 09:52 Dose: 25 mg - Labs Labs: 06/15/18 07:23 06/15/18 07:23 PT 11.2 SECONDS (9.7-12.2) 06/10/18 07:01 INR 1.0 06/10/18 07:01 APTT 32 SECONDS (21-34) D 06/08/18 06:57 - Constitutional Appears: Non-toxic, No Acute Distress, Chronically Ill - Head Exam Head Exam: ATRAUMATIC, NORMOCEPHALIC - Eye Exam Eye Exam: EOMI, Normal appearance, PERRL - ENT Exam ENT Exam: Mucous Membranes Moist - Respiratory Exam Respiratory Exam: Clear to Ausculation Bilateral, NORMAL BREATHING PATTERN. absent: Rales, Rhonchi, Wheezes - Cardiovascular Exam Cardiovascular Exam: REGULAR RHYTHM, +S1, +S2. absent: Gallop, Rubs, Murmur - GI/Abdominal Exam GI & Abdominal Exam: Soft, Normal Bowel Sounds. absent: Distended, Firm, G uarding, Rigid, Tenderness, Organomegaly, Rebound - Extremities Exam Extremities Exam: Full ROM, Normal Capillary Refill Additional comments: R foot wrapped in dressing and in orthotic boot c/d/i - Neurological Exam Neurological Exam: Alert, Awake, CN II-XII Intact, Oriented x3 - Psychiatric Exam Psychiatric exam: Normal Affect, Normal Mood - Skin Skin Exam: Dry, Intact, Normal Color, Warm Assessment and Plan - Assessment and Plan (Free Text) Assessment: 62 year old female with a past medical history of depression, diabetes, hypertension, and hyperlipidemia admitted for evaluation and treatment of bilateral non-healing diabetic foot ulceration leading to osteomyelitis of the right foot. S/p I+D of R foot abscess by Dr. Huffman POD#2. Plan: Diabetic Foot Ulcers - ED: Tylenol, Cefazolin, Vancomycin x2, Toradol, Fluid Bolus. 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 1.8cm abscess laterally adjacent to 1st metatarsal head. Acute osteomyelitis within the 1st metatarsal, and at 2nd proximal phalanx. Mild fraying consistent with low grade sprained ankle or partial tear. Prominent degen changes in the midfoot with bony spurring and osteochondral changes - MRI L LE (06/07): cellulitis, early osteomyelitis at 1st distal phalanx. Milder reticulation, possible cellulitis at the 2nd digit. Osteochondral changes. Low grade sprained ankle or partial tear. - wound Cx (06/05): Pseudomonas Aerugenousa, Klebsiella Oxytoca, both sensitive to Merrem. Streptococcus Viridans, without associated antibiotic correlation; empirically covered by vancomycin - blood Cx (06/05) negative at 72 hours. PICC/midline placement for custodial abx for osteomyelitis consent obtained - CXR (06/09): negative for acute pathology, PICC line in place - Podiatry consulted: Dr. Nathanael pereira appreciated - wound cleansed with betadine/saline flush; redressed with betadine/DSD - S/p I+D of R foot abscess on 06/13/18 - will continue to follow - podiatry resident is aware of MRI findings on left LE, states pt will follow up outpatient; no acute intervention at this time - ID consulted: Dr. Amadeo pereira appreciated - cont IV abx - will continue to follow - continue Vancomycin 1gm IVPB q12 (started 06/05) - continue Zosyn 3.375gm IVPB q6 (06/06-06/07) stopped d/t poor sensitivity - continue Merrem 500mg IVPB q8 (started 06/07) - Morphine 1mg IVP q6 prn - Vitamin C 500mg po daily Sepsis likely due to osteomyelitis; resolved - Fever: Tmax - 06/05 @ 5: 101.3F, WBC 11.6, HR 108 - VBG lactate: 3.2 -> 1.0 - CXR (06/05): mild venous congestion; negative for acute disease process - urine Cx (06/05): negative - blood Cx (06/05): negative @ 72 hours - Wound cxs x3 taken in OR by podiatry on 06/13/18 demonstrating NGTD - abx as above: Vancomycin and Merrem; as per ID (Dr. Childs), patient to complete 6 week course of IV Meropenem after discharge; PICC line in place - Tylenol 650mg po q6 prn for fever > 100.4F Right Lower Ext. Swelling - US RLE venous Doppler (06/06): negative - continue to monitor swelling Hx of Hyperlipidemia - home Simvastatin 40mg -> Crestor 10mg po HS Hx of DM2 requiring insulin w/ neuropathy - HgbA1c is 7.0 - ISS medium ACHS - currently well controlled (150s) on ISS without basal insulin Hx of Diabetic neuropathy - home Topiramate 25mg po daily, Gabapentin 300mg po bid - Lisinopril 2.5mg po daily for renal protection Hx of depression - home Paxil 20mg po daily Constipation - continue Colace 100 mg po TID Hx of HTN - continue lisinopril Tobacco use - Nicotine 7mg/24hr 1 patch TD daily - counseled on cessation PPx, Diet, Disposition - DVT: Heparin 5000u sc q8, SCDs CI d/t LE swelling - GI: not indicated at this time - CCD - Dispo: Patient s/p I&D on 06/13 at 7:45 with podiatry; POD#2, doing well post- procedure. Medically stable for discharge. Pending placement to [facility] and insurance approval. Pt seen, examined with, and plan discussed with Dr. Hernandez, attending. Jaswant Wang DO PGY-1, History Professor Pager #[phone]
--- NOTE | 2018-06-15 21:26 | CP.PCM.PN ---
Subjective - Date & Time of Evaluation Date of Evaluation: 06/15/18 Time of Evaluation: 14:15 - Subjective Subjective: dictated Objective - Vital Signs/Intake and Output Vital Signs (last 24 hours): Temp Pulse Resp BP Pulse Ox 98.2 F 66 20 103/68 100 06/15/18 15:56 06/15/18 15:56 06/15/18 15:56 06/15/18 15:56 06/15/18 15:56 Intake and Output: 06/15/18 06/16/18 18:59 06:59 Intake Total 950 Balance 950 - Medications Medications: Current Medications Acetaminophen (Tylenol 325mg Tab) 650 mg PO Q6 PRN PRN Reason: Fever >100.4 F Acetaminophen (Tylenol 650mg/20.3ml Solution Ud) 650 mg PO Q6 PRN PRN Reason: Pain, Mild (1-3) Ascorbic Ac/Ferrous Sulf/Folic Acid (Iberet-Folic 500) 1 ter PO DAILY [facility] Last Admin: 06/15/18 09:53 Dose: 1 ter Dextrose (Dextrose 50% Inj) 0 ml IVP .STAT PRN; Protocol PRN Reason: Hypoglycemia Protocol Dextrose (Glutose 15) 0 gm PO .ONCE PRN; Protocol PRN Reason: Hypoglycemia Protocol Gabapentin (Neurontin) 300 mg PO BID [facility] Last Admin: 06/15/18 17:05 Dose: 300 mg Glucagon (Glucagen Diagnostic Kit) 0 mg IM .STAT PRN; Protocol PRN Reason: Hypoglycemia Protocol Heparin Sodium (Porcine) (Heparin) 5,000 units SC Q8 [facility] Meropenem 500 mg/ Sodium (Chloride) 100 mls @ 100 mls/hr IVPB Q8H [facility]; Protocol Last Admin: 06/15/18 14:54 Dose: 100 mls/hr Vancomycin/Sodium Chloride (Vancomycin 1 Gm/Ns 200 Ml) 1 gm in 200 mls @ 166.6 mls/hr IVPB Q12H [facility]; Protocol Stop: 06/17/18 01:01 Last Admin: 06/15/18 12:32 Dose: 166.6 mls/hr Dextrose (Dextrose 5% In Water 1000 Ml) 1,000 mls @ 0 mls/hr IV .Q0M PRN; Protocol PRN Reason: Hypoglycemia Protocol Sodium Chloride (Sodium Chloride 0.9%) 1,000 mls @ 100 mls/hr IV .Q10H [facility] Last Admin: 06/15/18 16:20 Dose: Not Given Insulin Human Regular (Novolin R) 0 unit SC ACHS [facility]; Protocol Last Admin: 06/15/18 21:25 Dose: Not Given Lactobacillus Acidophilus (Bacid Acidophilus) 1 cap PO BID [facility] Last Admin: 06/15/18 17:05 Dose: 1 cap Lisinopril (Zestril) 2.5 mg PO DAILY [facility] Last Admin: 06/15/18 09:55 Dose: Not Given Morphine Sulfate (Morphine) 1 mg IVP Q6H PRN PRN Reason: Pain, severe (8-10) Last Admin: 06/14/18 21:14 Dose: 1 mg Nicotine (Nicoderm Cq) 1 patch TD DAILY [facility] Last Admin: 06/15/18 09:53 Dose: 1 patch Oxycodone/Acetaminophen (Percocet 5/325 Mg Tab) 1 tab PO Q6H PRN PRN Reason: Pain, moderate (4-7) Stop: 06/16/18 10:13 Last Admin: 06/15/18 17:12 Dose: 1 tab Paroxetine HCl (Paxil) 20 mg PO DAILY [facility] Last Admin: 06/15/18 09:52 Dose: 20 mg Rosuvastatin Calcium (Crestor) 10 mg PO HS [facility] Last Admin: 06/14/18 21:06 Dose: 10 mg Topiramate (Topamax) 25 mg PO DAILY [facility] Last Admin: 06/15/18 09:52 Dose: 25 mg - Labs Labs: 06/15/18 07:23 06/15/18 07:23 PT 11.2 SECONDS (9.7-12.2) 06/10/18 07:01 INR 1.0 06/10/18 07:01 APTT 32 SECONDS (21-34) D 06/08/18 06:57
[2018-06-15] MEDS: Meropenem 1,000 MG in Sodium Chloride 0.9% 100 ML IVPB SCH (22:20)
[2018-06-16] MEDS: Vancomycin 1 gm/NS 200 ml 1 GM/200 ML BAG IVPB SCH ×2 (01:58→14:34)
[2018-06-16] MEDS: Oxycodone/Acetaminophen 5/325 mg Tab PO PRN (02:07)
--- NOTE | 2018-06-16 02:34 | PN ---
DATE: 06/15/2018 SUBJECTIVE: The patient was seen today. She was feeling better. We are still waiting for the culture reports to finalize. She has a PICC line. She had the dressing done on her right foot. PHYSICAL EXAMINATION: VITAL SIGNS: T-max is 98.2, pulse 66, blood pressure 103/68, respirations are 20. HEENT: Head is atraumatic. NECK: Supple. LUNGS: Clear. HEART: S1 and S2 are regular. ABDOMEN: Soft, nontender. No guarding, no rigidity present. EXTREMITIES: Right foot has this second toe which still has a scab and ulcer on the partially amputated second toe, first toe has also been amputated and a left foot has a dressing. LABORATORY DATA: Labs are noted. Labs show white count is 5.6, hemoglobin is 10, BUN is 25, creatinine 0.7. ASSESSMENT AND PLAN: Micro jack, the cultures from 06/13/2018 are negative so far. I am waiting for them to be finalized as the patient is on vancomycin and Merrem at this time and if the cultures remain negative, the patient probably will go on meropenem. She is on 500 mg every 8 hours of meropenem. I want to see her creatinine is 0.7, so maybe we can go up on the dose 2 gm every 8 hours, but need to monitor potassium and we will do so as that will be the only drug she will be going on unless cultures shows methicillin-resistant Staphylococcus aureus. The patient came in with cellulitis and abscesses of the feet and she had abscess which was drained and the MRI was positive for osteomyelitis, so we will get 6 weeks of total antibiotics starting from the day she came to the hospital which was 06/05/2018. We will follow. Alessia Childs MD
[2018-06-16 05:25] VITALS: O2SAT 100
[2018-06-16] MEDS: Meropenem 1,000 MG in Sodium Chloride 0.9% 100 ML IVPB SCH ×2 (06:36→14:55)
[2018-06-16] MEDS: Sodium Chloride 0.9% 1,000 ML IV SCH ×2 (06:38→13:15)
[2018-06-16 06:52] LABS: BASO # 0.1 K/uL (0.0-0.2); BASO % 1.3 % (0.0-2.0); EOS # 0.3 K/uL (0.0-0.7); HEMOGLOBIN 10.2 g/dL (11.0-16.0); LYMPH # 2.8 K/uL (1.0-4.3); LYMPH % 47.1 % (20.0-40.0); MEAN CELL VOLUME 89.4 fL (81.0-99.0); MEAN CORPUSCULAR HEMOGLOBIN 29.5 pg (27.0-31.0); MEAN PLATELET VOLUME 8.7 fL (7.2-11.7); MONO # 0.5 K/uL (0.0-0.8); MONO % 7.8 % (0.0-10.0); NEUT # 2.3 K/uL (1.8-7.0); NEUT % 38.8 % (50.0-75.0); RBC 3.46 Mil/uL (3.80-5.20); RED CELL DISTRIBUTION WIDTH 14.1 % (11.5-14.5); WHITE BLOOD COUNT 5.9 K/uL (4.8-10.8)
[2018-06-16 06:55] LABS: ALB/GLOB RATIO 1.3 (1.0-2.1); ALBUMIN 3.5 g/dL (3.5-5.0); ALT/SGPT 41 U/L (9-52); AST/SGOT 20 U/L (14-36); BLOOD UREA NITROGEN 26 mg/dL (7-17); CALCIUM 9.5 mg/dl (8.6-10.4); GFR NON-AFRICAN AMERICAN > 60
[2018-06-16] MEDS: (Novolin R) Insulin Human Regular 100 units/ml vial SC SCH ×3 (08:05→17:19)
[2018-06-16] MEDS: Lactobacillus Acidophilus 500 MU Cap PO SCH ×2 (10:24→17:19)
[2018-06-16] MEDS: Folic Acid/Ascorbic Acid/Ferrous Sulfate 1 Tab PO SCH (10:24)
--- NOTE | 2018-06-16 11:15 | CP.PCM.PN ---
Subjective - Date & Time of Evaluation Date of Evaluation: 06/16/18 Time of Evaluation: 11:12 - Subjective Subjective: Podiatry Progress note: Dr. Huffman 62 year old female patient evaluated 3 days s/p right foot I&D and partial 1st ray resection. Patient is resting comfortably in bed, AAOx3 and appears in no acute distress. Denies of any acute overnight events. At rest, denies of pain. Denies of recent F/N/V/C/SOB/CP/headache. No other pedal complains. Objective - Vital Signs/Intake and Output Vital Signs (last 24 hours): Temp Pulse Resp BP Pulse Ox 97.6 F 70 20 108/69 100 06/16/18 07:57 06/16/18 07:57 06/16/18 07:57 06/16/18 07:57 06/16/18 07:57 Intake and Output: 06/16/18 06/16/18 06:59 18:59 Intake Total 2200 Balance 2200 - Medications Medications: Current Medications Acetaminophen (Tylenol 325mg Tab) 650 mg PO Q6 PRN PRN Reason: Fever >100.4 F Acetaminophen (Tylenol 650mg/20.3ml Solution Ud) 650 mg PO Q6 PRN PRN Reason: Pain, Mild (1-3) Ascorbic Ac/Ferrous Sulf/Folic Acid (Iberet-Folic 500) 1 ter PO DAILY [facility] Last Admin: 06/16/18 10:24 Dose: 1 ter Dextrose (Dextrose 50% Inj) 0 ml IVP .STAT PRN; Protocol PRN Reason: Hypoglycemia Protocol Dextrose (Glutose 15) 0 gm PO .ONCE PRN; Protocol PRN Reason: Hypoglycemia Protocol Gabapentin (Neurontin) 300 mg PO BID [facility] Last Admin: 06/16/18 10:03 Dose: 300 mg Glucagon (Glucagen Diagnostic Kit) 0 mg IM .STAT PRN; Protocol PRN Reason: Hypoglycemia Protocol Heparin Sodium (Porcine) (Heparin) 5,000 units SC Q8 [facility] Last Admin: 06/16/18 06:35 Dose: 5,000 units Vancomycin/Sodium Chloride (Vancomycin 1 Gm/Ns 200 Ml) 1 gm in 200 mls @ 166.6 mls/hr IVPB Q12H [facility]; Protocol Stop: 06/17/18 01:01 Last Admin: 06/16/18 01:58 Dose: 166.6 mls/hr Dextrose (Dextrose 5% In Water 1000 Ml) 1,000 mls @ 0 mls/hr IV .Q0M PRN; Protocol PRN Reason: Hypoglycemia Protocol Sodium Chloride (Sodium Chloride 0.9%) 1,000 mls @ 100 mls/hr IV .Q10H [facility] Last Admin: 06/16/18 06:38 Dose: 100 mls/hr Meropenem 1,000 mg/ Sodium (Chloride) 100 mls @ 100 mls/hr IVPB Q8H [facility]; Protocol Last Admin: 06/16/18 06:36 Dose: 100 mls/hr Insulin Human Regular (Novolin R) 0 unit SC ACHS [facility]; Protocol Last Admin: 06/16/18 08:05 Dose: Not Given Lactobacillus Acidophilus (Bacid Acidophilus) 1 cap PO BID [facility] Last Admin: 06/16/18 10:24 Dose: 1 cap Lisinopril (Zestril) 2.5 mg PO DAILY [facility] Last Admin: 06/16/18 10:24 Dose: 2.5 mg Morphine Sulfate (Morphine) 1 mg IVP Q6H PRN PRN Reason: Pain, severe (8-10) Last Admin: 06/16/18 10:03 Dose: 1 mg Nicotine (Nicoderm Cq) 1 patch TD DAILY [facility] Last Admin: 06/16/18 10:25 Dose: 1 patch Paroxetine HCl (Paxil) 20 mg PO DAILY [facility] Last Admin: 06/16/18 10:24 Dose: 20 mg Rosuvastatin Calcium (Crestor) 10 mg PO HS [facility] Last Admin: 06/15/18 21:34 Dose: 10 mg Topiramate (Topamax) 25 mg PO DAILY [facility] Last Admin: 06/16/18 10:03 Dose: 25 mg - Labs Labs: 06/16/18 06:37 06/16/18 06:37 PT 11.2 SECONDS (9.7-12.2) 06/10/18 07:01 INR 1.0 06/10/18 07:01 APTT 32 SECONDS (21-34) D 06/08/18 06:57 - Constitutional Appears: Well, Non-toxic, No Acute Distress - Extremities Exam Additional comments: VASC: DP and PT 2/4 bilaterally, CFT less than 3 seconds x 9, TG warm to cool from proximal to distal, no pitting or non-pitting edema noted NEURO: diminished protective sensation to bilateral lower extremity DERM: Right foot: Surgical site appears well coapted with no dehiscence, no active drainage, no malodor, marcela-surgical site appears mildly macerated, no erythema, no edema, no clinical suspicion of active infection Left Foot- pre-ulcerative lesion measuring 3 cm X 4 cm present to submet 1 on the left foot with marcela-wound erythema, hyperkeratotic marcela-wound border with hyperpigmentation, no drainage, no clinical signs of infection to the left foot ORTHO: mild pain on palpation at the surgical site, previous amputation of right 2nd digit - Neurological Exam Neurological Exam: Alert, Awake, Oriented x3 - Psychiatric Exam Psychiatric exam: Normal Affect, Normal Mood Assessment and Plan - Assessment and Plan (Free Text) Assessment: 62 year old female with 1. 3 days s/p right foot I&D and partial 1st ray amputation 2. 2nd digit tip ulceration with osteomyelitis (+) 3. L foot preu lcerative lesion sub-metatarsal 1 Plan: Patient seen and evaluated Plan discussed with attending Dr. Huffman Labs, vitals and charts reviewed - No leukocytosis; afebrile Pre-op Foot X-ray 06/05: soft tissue defect plantar submet 1, partial 1st ray amp with osteolytic changes to the stump, periostel changes, no signs of soft tissue emphysema Pre-op Tib-Fib X-ray 06/05: no signs of soft tissue emphysema Pre-op MRI- Increase in signal intensity along the shaft of the 1st metatarsal on T2 image consistent with OM Pre-op Wound Cultures- Pseudomonas Aeruginosa, Klebsiella oxytoca, Strep. viridans Infectious Disease consult- recommendations appreciated - Patient to continue IV Abx as per ID Intra-op wound cultures- No growth (final) Intra-op proximal bone margin - pending report Surgical site cleansed with saline flush and dressed with betadine/DSD Remain WBAT to the heel in surgical shoe Understands protocol once goes home - will follow up with Dr. Huffman in her clinic - waiting on Intra-op pathology report Podiatry will follow patient while in house
[2018-06-16 16:57] VITALS: BP 122/78; PULSE 67; TEMP 98.9
--- NOTE | 2018-06-16 17:50 | CP.PCM.PN ---
Subjective - Date & Time of Evaluation Date of Evaluation: 06/16/18 Time of Evaluation: 15:45 - Subjective Subjective: dictated Objective - Vital Signs/Intake and Output Vital Signs (last 24 hours): Temp Pulse Resp BP Pulse Ox 98.9 F 67 20 122/78 100 06/16/18 16:00 06/16/18 16:00 06/16/18 16:00 06/16/18 16:00 06/16/18 16:00 Intake and Output: 06/16/18 06/16/18 06:59 18:59 Intake Total 2200 1280 Balance 2200 1280 - Medications Medications: Current Medications Acetaminophen (Tylenol 325mg Tab) 650 mg PO Q6 PRN PRN Reason: Fever >100.4 F Acetaminophen (Tylenol 650mg/20.3ml Solution Ud) 650 mg PO Q6 PRN PRN Reason: Pain, Mild (1-3) Ascorbic Ac/Ferrous Sulf/Folic Acid (Iberet-Folic 500) 1 ter PO DAILY [facility] Last Admin: 06/16/18 10:24 Dose: 1 ter Dextrose (Dextrose 50% Inj) 0 ml IVP .STAT PRN; Protocol PRN Reason: Hypoglycemia Protocol Dextrose (Glutose 15) 0 gm PO .ONCE PRN; Protocol PRN Reason: Hypoglycemia Protocol Gabapentin (Neurontin) 300 mg PO BID [facility] Last Admin: 06/16/18 17:19 Dose: 300 mg Glucagon (Glucagen Diagnostic Kit) 0 mg IM .STAT PRN; Protocol PRN Reason: Hypoglycemia Protocol Heparin Sodium (Porcine) (Heparin) 5,000 units SC Q8 [facility] Last Admin: 06/16/18 14:55 Dose: 5,000 units Dextrose (Dextrose 5% In Water 1000 Ml) 1,000 mls @ 0 mls/hr IV .Q0M PRN; Protocol PRN Reason: Hypoglycemia Protocol Sodium Chloride (Sodium Chloride 0.9%) 1,000 mls @ 100 mls/hr IV .Q10H [facility] Last Admin: 06/16/18 13:15 Dose: Not Given Meropenem 1,000 mg/ Sodium (Chloride) 100 mls @ 100 mls/hr IVPB Q8H [facility]; Protocol Last Admin: 06/16/18 14:55 Dose: 100 mls/hr Insulin Human Regular (Novolin R) 0 unit SC ACHS [facility]; Protocol Last Admin: 06/16/18 17:19 Dose: 3 units Lactobacillus Acidophilus (Bacid Acidophilus) 1 cap PO BID [facility] Last Admin: 06/16/18 17:19 Dose: 1 cap Lisinopril (Zestril) 2.5 mg PO DAILY [facility] Last Admin: 06/16/18 10:24 Dose: 2.5 mg Morphine Sulfate (Morphine) 1 mg IVP Q6H PRN PRN Reason: Pain, severe (8-10) Last Admin: 06/16/18 10:03 Dose: 1 mg Nicotine (Nicoderm Cq) 1 patch TD DAILY [facility] Last Admin: 06/16/18 10:25 Dose: 1 patch Paroxetine HCl (Paxil) 20 mg PO DAILY [facility] Last Admin: 06/16/18 10:24 Dose: 20 mg Rosuvastatin Calcium (Crestor) 10 mg PO HS [facility] Last Admin: 06/15/18 21:34 Dose: 10 mg Topiramate (Topamax) 25 mg PO DAILY [facility] Last Admin: 06/16/18 10:03 Dose: 25 mg - Labs Labs: 06/16/18 06:37 06/16/18 06:37 PT 11.2 SECONDS (9.7-12.2) 06/10/18 07:01 INR 1.0 06/10/18 07:01 APTT 32 SECONDS (21-34) D 06/08/18 06:57
--- NOTE | 2018-06-16 18:17 | CP.PCM.DIS ---
Provider - Provider Date of Admission: 06/05/18 19:53 Attending physician: Vargas Hernandez MD Primary care physician: Dr. Anthony Mike Consults: Podiatry - Dr. Huffman Infectious Disease - Dr. Childs Time Spent in preparation of Discharge (in minutes): 45 Diagnosis - Discharge Diagnosis (1) Foot abscess, right Status: Acute (2) Status post incision and drainage Status: Acute Hospital Course - Lab Results Lab Results: Micro Results 06/13/18 10:00 Foot - Right Gram Stain - Final 06/13/18 10:00 Foot - Right Wound Culture - Final No growth. 06/13/18 09:58 Foot - Right Gram Stain - Final 06/13/18 09:58 Foot - Right Wound Culture - Final No growth. 06/13/18 09:54 Foot - Right Gram Stain - Final 06/13/18 09:54 Foot - Right Wound Culture - Final No growth. 06/05/18 06:52 Blood Blood Culture - Final NO GROWTH AFTER 5 DAYS 06/05/18 06:52 Blood Gram Stain - Final TEST NOT PERFORMED 06/05/18 06:52 Blood Blood Culture - Final NO GROWTH AFTER 5 DAYS 06/05/18 06:52 Blood Gram Stain - Final TEST NOT PERFORMED 06/05/18 18:45 Foot - Right Gram Stain - Final 06/05/18 18:45 Foot - Right Wound Culture - Final Pseudomonas Aeruginosa Klebsiella Oxytoca Streptococcus Viridans 06/05/18 20:03 Urine,[place] Urine Culture - Final No Growth (<1,000 CFU/ML) Most Recent Lab Values WBC 5.9 K/uL (4.8-10.8) 06/16/18 06:37 RBC 3.46 Mil/uL (3.80-5.20) L 06/16/18 06:37 Hgb 10.2 g/dL (11.0-16.0) L 06/16/18 06:37 Hct 31.0 % (34.0-47.0) L 06/16/18 06:37 MCV 89.4 fL (81.0-99.0) 06/16/18 06:37 MCH 29.5 pg (27.0-31.0) 06/16/18 06:37 MCHC 33.0 g/dL (33.0-37.0) 06/16/18 06:37 RDW 14.1 % (11.5-14.5) 06/16/18 06:37 Plt Count 129 K/uL (130-400) L D 06/16/18 06:37 MPV 8.7 fL (7.2-11.7) 06/16/18 06:37 Neut % (Auto) 38.8 % (50.0-75.0) L 06/16/18 06:37 Lymph % (Auto) 47.1 % (20.0-40.0) H 06/16/18 06:37 [place] % (Auto) 7.8 % (0.0-10.0) 06/16/18 06:37 Eos % (Auto) 5.0 % (0.0-4.0) H 06/16/18 06:37 Baso % (Auto) 1.3 % (0.0-2.0) 06/16/18 06:37 Neut # (Auto) 2.3 K/uL (1.8-7.0) 06/16/18 06:37 Lymph # (Auto) 2.8 K/uL (1.0-4.3) 06/16/18 06:37 [place] # (Auto) 0.5 K/uL (0.0-0.8) 06/16/18 06:37 Eos # (Auto) 0.3 K/uL (0.0-0.7) 06/16/18 06:37 Baso # (Auto) 0.1 K/uL (0.0-0.2) 06/16/18 06:37 ESR 86 mm/hr (0-20) H 06/05/18 19:52 PT 11.2 SECONDS (9.7-12.2) 06/10/18 07:01 INR 1.0 06/10/18 07:01 APTT 32 SECONDS (21-34) D 06/08/18 06:57 pO2 50 mm/Hg (30-55) 06/05/18 23:44 VBG pH 7.26 (7.32-7.43) L 06/05/18 23:44 VBG pCO2 43 mmHg (40-60) 06/05/18 23:44 VBG HCO3 18.6 mmol/L 06/05/18 23:44 VBG Total CO2 20.6 mmol/L (22-28) L 06/05/18 23:44 VBG O2 Sat (Calc) 86.5 % (40-65) H 06/05/18 23:44 VBG Base Excess -7.5 mmol/L (0.0-2.0) L 06/05/18 23:44 VBG Potassium 3.9 mmol/L (3.6-5.2) 06/05/18 23:44 Sodium 139.0 mmol/l (132-148) 06/05/18 23:44 Chloride 111.0 mmol/L (98-107) H 06/05/18 23:44 Glucose 132 mg/dl (65-105) H 06/05/18 23:44 Lactate 1.0 mmol/L (0.7-2.1) 06/05/18 23:44 FiO2 21.0 % 06/05/18 19:30 Crit Value Called To Dr sanchez 06/05/18 19:30 Crit Value Called By [facility] 06/05/18 19:30 Crit Value Read Back Y 06/05/18 19:30 Blood Gas Notified Time 193806/05/18 19:30 Sodium 144 mmol/L (132-148) 06/16/18 06:37 Potassium 5.0 mmol/L (3.6-5.2) 06/16/18 06:37 Chloride 110 mmol/L (98-107) H 06/16/18 06:37 Carbon Dioxide 26 mmol/L (22-30) 06/16/18 06:37 Anion Gap 13 (10-20) 06/16/18 06:37 BUN 26 mg/dL (7-17) H 06/16/18 06:37 Creatinine 0.8 mg/dL (0.7-1.2) 06/16/18 06:37 Est GFR ( Amer) > 60 06/16/18 06:37 Est GFR (Non-Af Amer) > 60 06/16/18 06:37 POC Glucose (mg/dL) 211 mg/dL (65-110) H 06/16/18 16:34 Random Glucose 138 mg/dL (65-105) H 06/16/18 06:37 Hemoglobin A1c 7.0 % (4.2-6.5) H 06/13/18 07:59 Calcium 9.5 mg/dl (8.6-10.4) 06/16/18 06:37 Phosphorus 2.8 mg/dL (2.5-4.5) 06/05/18 20:03 Magnesium 1.8 mg/dL (1.6-2.3) 06/10/18 07:01 Total Bilirubin 0.2 mg/dL (0.2-1.3) 06/16/18 06:37 AST 20 U/L (14-36) 06/16/18 06:37 ALT 41 U/L (9-52) 06/16/18 06:37 Alkaline Phosphatase 74 U/L (38-126) 06/16/18 06:37 C-Reactive Protein 70.30 mg/L (0.0-9.9) H 06/05/18 19:52 Total Protein 6.2 g/dL (6.3-8.3) L 06/16/18 06:37 Albumin 3.5 g/dL (3.5-5.0) 06/16/18 06:37 Globulin 2.7 gm/dL (2.2-3.9) 06/16/18 06:37 Albumin/Globulin Ratio 1.3 (1.0-2.1) 06/16/18 06:37 Venous Blood Potassium 3.9 mmol/L (3.6-5.2) 06/05/18 23:44 Urine Color Straw (YELLOW) 06/05/18 20:03 Urine Clarity Clear (Clear) 06/05/18 20:03 Urine pH 6.0 (5.0-8.0) 06/05/18 20:03 Ur Specific [place] 1.010 (1.003-1.030) 06/05/18 20:03 Urine Protein Negative mg/dL (NEGATIVE) 06/05/18 20:03 Urine Glucose (UA) Normal mg/dL (Normal) 06/05/18 20:03 Urine Ketones Negative mg/dL (NEGATIVE) 06/05/18 20:03 Urine Blood Trace (NEGATIVE) 06/05/18 20:03 Urine Nitrate Negative (NEGATIVE) 06/05/18 20:03 Urine Bilirubin Negative (NEGATIVE) 06/05/18 20:03 Urine Urobilinogen Normal mg/dL (0.2-1.0) 06/05/18 20:03 Ur Leukocyte Esterase 1+ Valentina/uL (Negative) H 06/05/18 20:03 Urine WBC (Auto) 12 /hpf (0-5) H 06/05/18 20:03 Urine RBC (Auto) 1 /hpf (0-3) 06/05/18 20:03 Ur Squamous Epith Cells 1 /hpf (0-5) 06/05/18 20:03 Urine Bacteria Rare (<OCC) 06/05/18 20:03 Vancomycin Trough 16.3 ug/mL (5.0-10.0) H 06/13/18 07:59 Blood Type O POSITIVE 06/14/18 10:27 Antibody Screen Negative 06/14/18 10:27 - Hospital Course Hospital Course: Medicine Discharge Summary for Hospitalist Service Jaswant Wang DO PGY-1, Cnc Technician 62 year old female with a past medical history of depression, diabetes, hyperten racheal, and hyperlipidemia who presented on 06/05/18 with complaints of worsening pain and drainage of a chronic right diabetic foot ulcer located on the plantar aspect of her right foot. Patient had a history of diabetic foot ulcerations managed by Dr. Teo Murry. She noticed this particular ulceration "a couple weeks" prior and stated that the wound opens and closes intermittently. She stated that on day of admission, the wound was draining more and the pain became unbearable. She took a prescribed medication for her pain. She was unsure of the name of the medication. She admitted to a 101.7 fever which she took Tylenol. Pt was admitted for evaluation and treatment of bilateral non-healing diabetic foot ulceration leading to osteomyelitis of the right foot. Pt had XRs and MRIs of affected areas that demonstrated osteomyelitis of the R foot. Wound cx on admission grew Pseudomonas, Klebsiella, and Strep. Viridans. Pt was started on empiric antibiotics Vancomycin and Merrem (also Zosyn, which was discontinued due to poor sensitivity on wound culture), as per ID recs (Dr. Childs). Podiatry was consulted for the R foot abscess (Dr. Huffman) and patient underwent incision and drainage of the R foot abscess on 06/13/18, tolerated procedure well and pain was controlled. Per PT recs, dispo was to sub-acute rehab. Patient was discharged to [facility] in stable condition on 06/16/18, with instructions to continue with inpatient medications, and complete Merrem as per ID for total course of 6 weeks of therapy. Pt received PICC line inpatient for administration of IV antibiotics. Patient was instructed to follow-up with her PCP and within Podiatry in clinic within 1 week of discharge from sub-acute rehab facility. Pt was restarted on home medications for DM on discharge to sub- acute rehab facility. Discharge Exam - Head Exam Head Exam: ATRAUMATIC, NORMOCEPHALIC - Eye Exam Eye Exam: EOMI, Normal appearance, PERRL - ENT Exam ENT Exam: Mucous Membranes Moist - Respiratory Exam Respiratory Exam: Clear to PA & Lateral, NORMAL BREATHING PATTERN, UNREMARKABLE. absent: Rales, Rhonchi, Wheezes - Cardiovascular Exam Cardiovascular Exam: REGULAR RHYTHM, +S1, +S2. absent: Gallop, Rubs, Systolic Murmur - GI/Abdominal Exam GI & Abdominal Exam: Normal Bowel Sounds, Soft, Unremarkable. absent: Tenderness - Extremities Exam Extremities exam: full ROM, normal capillary refill, pedal pulses present Additional comments: Dressing applied to R foot c/d/i, no tenderness to palpation on exam - Neurological Exam Neurological exam: Alert, CN II-XII Intact, Oriented x3, Reflexes Normal - Psychiatric Exam Psychiatric exam: Normal Affect, Normal Mood - Skin Skin Exam: Dry, Intact, Warm Discharge Plan - Follow Up Plan Condition: SERIOUS Disposition: REHAB FACILITY/REHAB UNIT Instructions: Diabetes Exchange Diet, Diabetic Foot Ulcer (DC), Meropenem Additional Instructions: Patient medically stable for discharge to sub-acute rehab facility. Please follow-up with your primary care physician (Dr. Anthony Mike) within 1 week of discharge from sub-acute rehab facility. Please follow-up with Podiatry (Dr. Huffman) within 1 week of discharge from sub- acute rehab facility. Please take medications as prescribed. Please take Meropenem (antibiotic) to complete 6 weeks total of therapy. Wound care: cleanse surgical site on R foot with saline flush and dressed with betadine/DSD. Remain WBAT to the heel in surgical shoe. Should symptoms recur or worsen, please call your primary care physician or report to your nearest emergency department. Patient advised and educated on importance of smoking cessation. Referrals: Vikki Huffman DPM [Staff Provider] -
--- NOTE | 2018-06-16 22:46 | PN ---
DATE: 06/16/2018 The patient is seen today. She was afebrile. She denies any complaints. She is feeling better. She has a PICC line. Her foot wound remains unchanged. They had done an I and D, first ray resection. Second toe is partially amputated before. She has no fever. No nausea. No vomiting. Her cultures from the OR came out negative. Hence at this time and based on her previous cultures, vancomycin is not needed, so we will discontinue that and continue Merrem. She will be going to rehab to get IV antibiotics, pending the approval by the insurance. The patient did come in with abscesses, cellulitis, and osteomyelitis. I suggest her to get six weeks of total IV antibiotics and to follow up with the countersinker. She also needs frequent labs, CBC, CMP, ESR, and CRP weekly to monitor her liver and kidney functions while she is on the antibiotics. She should also be on Bacid, so that she does not develop any C. difficile. She is diabetic. Alessia Childs MD
== END 2018-06-16 18:56 ==
LOC: C.ER 17:06 → C.9E 19:53 → C.5S 23:39 → C.3T 06-16 05:15
PROVIDERS: ADMIT Internal Medicine; ATTEND Internal Medicine
PROC: 02HV33Z Insertion of Infusion Device into Superior Vena Cava, Percutaneous Approach (ICD-10-PCS; 2018-06-09)
PROC: 0HBMXZZ Excision of Right Foot Skin, External Approach (ICD-10-PCS; 2018-06-13)
PROC: 0H9MXZX Drainage of Right Foot Skin, External Approach, Diagnostic (ICD-10-PCS; 2018-06-13)
PROC: 0Y6M0Z9 Detachment at Right Foot, Partial 1st Ray, Open Approach (ICD-10-PCS; principal; 2018-06-13 07:45)
DX: E10.69 Type 1 diabetes mellitus with other specified complication (principal); M86.171 Other acute osteomyelitis, right ankle and foot; L03.115 Cellulitis of right lower limb; L97.519 Non-pressure chronic ulcer of other part of right foot with unspecified severity; E10.42 Type 1 diabetes mellitus with diabetic polyneuropathy; E10.621 Type 1 diabetes mellitus with foot ulcer; E78.5 Hyperlipidemia, unspecified; F17.210 Nicotine dependence, cigarettes, uncomplicated; F32.9 Major depressive disorder, single episode, unspecified; I10 Essential (primary) hypertension; Z89.421 Acquired absence of other right toe(s); J06.9 Acute upper respiratory infection, unspecified; Z91.19 Patient's noncompliance with other medical treatment and regimen

== ENCOUNTER 2018-12-28 10:52 | Outpatient (CLI) | payer OTHER | END 2018-12-28 10:53 | disposition home or self-care (01) | LOC: C.RADH 10:52 | DX: L97.511 Non-pressure chronic ulcer of other part of right foot limited to breakdown of skin (principal); L97.521 Non-pressure chronic ulcer of other part of left foot limited to breakdown of skin ==